=== PATIENT | female | born 1945 | race Caucasian/White ===

== ENCOUNTER → 2016-06-06 | Outpatient (CLI) | payer MEDICARE ==
[2015-09-23 17:37] VITALS: BP 133/77
[~2016-06-06] MED LIST: ALPR0.254 PO; ASPI-482 PO; ASPI81TA2 PO; ATOR10TA60 PO; ATOR20TA58 PO; BREO; BREO ELLIPTA; BUSP15TA PO; CHOL10003 PO; CYAN10005 PO; DULO20CA PO; DULO60CA6 PO; FLUO40CA2 PO; HYDR-2762 PO; LEVO500T38 PO; LISI-334 PO; LISI10TA2 PO; LOSA25TA4 PO; MELO-150 PO; METO-269 PO; METO25TA2 PO; OMEP20CA9 PO; OMEP20TA PO; PROAIR HFA8.5 GM INH; TRAZ50TA15 PO; TRIA1CAP3 PO; TRIA1TAB3 PO
--- NOTE | 2016-06-06 14:39 | RAD ---
Indication follow-up nodules. PA and lateral views of the chest were obtained. Comparison is made to an examination 09/22/2015. Note is made of a CT examination 05/27/2015 referencing stable parenchymal opacities and nodules. The heart and pulmonary vessels are unremarkable. The mediastinum has a stable appearance. A focal infiltrate is not seen. A dominant nodule is not apparent on plain films. Significant pleural fluid is not present. There is no pneumothorax. A significant change in the appearance of the chest, on plain films, is not seen. IMPRESSION: No acute finding. No significant change, on plain films, relative to the previous exam
== END | disposition home or self-care (01) ==
LOC: RAD 13:50
PROVIDERS: ATTEND Internal Medicine Critical Care Medicine
DX: R06.00 Dyspnea, unspecified (principal); R91.8 Other nonspecific abnormal finding of lung field
CPT/HCPCS: 71020

== ENCOUNTER → 2016-06-21 | Outpatient (CLI) | payer MEDICARE ==
[2015-09-23 17:37] VITALS: BP 133/77
--- NOTE | 2016-06-22 10:19 | CARD ---
APPROVED REPORT EXAM: Two-dimensional and M-mode echocardiogram with Doppler and color Doppler. Other Information Quality : AverageHR: 97bpm Rhythm : Atrial Fibrillation INDICATION Atrial Fibrillation 2D DIMENSIONS RVDd3.0 (2.9-3.5cm)Left Atrium(2D)4.0 (1.6-4.0cm) IVSd0.9 (0.7-1.1cm)Aortic Root(2D)2.6 (2.0-3.7cm) LVDd5.6 (3.9-5.9cm)LVOT Diameter2.1 (1.8-2.4cm) PWd0.9 (0.7-1.1cm)LVDs4.3 (2.5-4.0cm) FS (%) 23.7 %SV71.1 ml Aortic Valve AoV Peak Jake.137.0cm/sAoV VTI22.6cm AO Peak GR.7.5mmHgLVOT Peak Jake.104.6cm/s AO Mean GR.4mmHgAVA (VMAX)2.75cm2 Tricuspid Valve TR P. [id number]/sRAP [id number] TR Peak Gr.[id number] LEFT VENTRICLE The left ventricle is normal size. There is normal left ventricular wall thickness. Left ventricle sy stolic function is normal. The Ejection Fraction is 50-55%. Unable to assess due to Atrial Fibrillati on. There is no ventricular septal defect visualized. RIGHT VENTRICLE The right ventricle is normal size. The right ventricular systolic function is normal. ATRIA The left atrium size is normal. The right atrium size is normal. The interatrial septum is intact wit h no evidence for an atrial septal defect or patent foramen ovale as noted on 2-D or Doppler imaging. AORTIC VALVE The aortic valve is normal in structure and function. The aortic valve is trileaflet. Doppler and Col or Flow revealed no significant aortic regurgitation. There is no significant aortic valvular stenosi s. MITRAL VALVE Mitral annular calcification is mild. There is no evidence of mitral valve prolapse. There is no mitr al valve stenosis. Doppler and Color Flow revealed trace mitral regurgitation. TRICUSPID VALVE The tricuspid valve is normal in structure and function. Doppler and Color Flow revealed trace tricus pid regurgitation. The PA pressure was estimated at 24 mmHg. There is no tricuspid valve stenosis. PULMONIC VALVE The pulmonary valve is normal in structure and function. Doppler and Color Flow revealed no pulmonic valvular regurgitation. There is no pulmonic valvular stenosis. GREAT VESSELS The aortic root is normal in size. The ascending aorta is normal in size. Normal pulmonary venous annette w (Doppler). The IVC is normal in size and collapses >50% with inspiration. PERICARDIAL EFFUSION There is no pleural effusion. There is no evidence of significant pericardial effusion. Critical Notification Critical Value: No <Conclusion> The left ventricle is normal size. Left ventricle systolic function is normal. The Ejection Fraction is 50-55%. There is no significant aortic valvular stenosis. Doppler and Color Flow revealed no significant aortic regurgitation. Doppler and Color Flow revealed trace mitral regurgitation. Doppler and Color Flow revealed trace tricuspid regurgitation. The PA pressure was estimated at 24 mmHg.
== END | disposition home or self-care (01) ==
LOC: ECHO 09:39
PROVIDERS: ATTEND Internal Medicine Cardiovascular Disease
DX: I48.91 Unspecified atrial fibrillation (principal); I34.0 Nonrheumatic mitral (valve) insufficiency; I07.1 Rheumatic tricuspid insufficiency
CPT/HCPCS: 93306

== ENCOUNTER → 2016-06-22 | Outpatient (CLI) | payer MEDICARE ==
[2015-09-23 17:37] VITALS: BP 133/77
--- NOTE | 2016-06-22 08:46 | RAD ---
Examination: CT chest without contrast History: History of follow-up pulmonary nodules. Comparison: 05/27/2015 Technique: Axial CT images of the chest were performed without contrast. Coronal sagittal reformats performed. PQRS Compliance Statement: One or more of the following individualized dose reduction techniques were utilized for this examination: 1. Automated exposure control 2. Adjustment of the mA and/or kV according to patient size 3. Use of iterative reconstruction technique Findings: The central airways are patent. The heart size grossly appears unremarkable. Coronary artery calcifications identified No radiologically significant mediastinal lymphadenopathy is identified. There is a 1.2 cm nodule identified in the right apical lung region grossly appears similar to prior exam. There is faint parenchymal opacity identified in the left upper lobe is grossly similar to prior exam. There is a 7 mm nodule identified in the left lower lobe of the lungs grossly similar to prior exam. Cholecystectomy clips are identified. Small hiatal hernia is noted. Moderate degenerative changes identified in the thoracic spine. Impression: Unchanged bilateral lung pulmonary nodules with the largest measuring 1.2 cm in the right upper lobe of the lung.
== END | disposition home or self-care (01) ==
LOC: CT 07:53
PROVIDERS: ATTEND Internal Medicine
DX: R91.1 Solitary pulmonary nodule (principal); I25.10 Atherosclerotic heart disease of native coronary artery without angina pectoris; K44.9 Diaphragmatic hernia without obstruction or gangrene
CPT/HCPCS: 71250

== ENCOUNTER 2016-07-09 06:29 | Day surgery (SDC) | payer MEDICARE ==
[~2016-07-09 06:29] MED LIST changes: +BUPIVACAINE MPF 0.5% 30 ML VIAL. ONE
[2016-07-09] MEDS ORDERED: ONDANSETRON PF 4 MG/2 ML VIAL. IV PRN (07:00)
[2016-07-09] MEDS ORDERED: IV RINGERS,LACTATED 1000ML 1,000 ML IV SCH ×2 (07:00→07:45)
[2016-07-09] MEDS ORDERED: LIDOCAINE 1% 1 ML SYRINGE. ID PRN (07:00)
[2016-07-09] MEDS ORDERED: MORPHINE SULFATE 2 MG/ML DISP.SYRIN. IV PRN (07:00)
[2016-07-09] MEDS ORDERED: PROCHLORPERAZINE 10 MG/2 ML VIAL. IV PRN (07:00)
[2016-07-09] MEDS ORDERED: HYDROMORPHONE 2 MG/ML VIAL. IV PRN (07:00)
[2016-07-09] MEDS ORDERED: FENTANYL PF 100 MCG/2 ML VIAL. IV PRN ×2 (07:00)
--- NOTE | 2016-07-09 07:11 | EKG ---
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
[2016-07-09 07:50] LABS: CALCIUM 8.9 mg/dL (8.5-10.1); CREATININE 0.8 mg/dL (0.6-1.0); GFR 70.9; MAGNESIUM 1.7 mg/dL (1.8-2.4); POTASSIUM 3.6 mmol/L (3.5-5.1)
[2016-07-09] MEDS ORDERED: LIDOCAINE 2% 100 MG/5 ML DISP.SYRIN. ONE (07:50)
[2016-07-09] MEDS ORDERED: EPHEDRINE PF IN SALINE 50 MG/5 ML DISP.SYRIN. IV ONE (07:50)
[2016-07-09] MEDS ORDERED: PROPOFOL 0 ML IV ONE (07:50)
--- NOTE | 2016-07-09 08:31 | EKG ---
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
[2016-07-09 09:05] VITALS: BP 134/68
[2016-07-09] MEDS ORDERED: PROPOFOL 20 ML IV ONE (12:11)
--- NOTE | 2016-07-09 16:27 | PDOC4 ---
Operative Note Operative Note Elective outpatient electrical cardioversion. The patient is a pleasant 71-year-old female who was found to have atrial fibrillation approximately 5 weeks ago. She was placed on rate control medications and anticoagulation. Echocardiogram is showing normal LV function. She has been compliant with her medications and was scheduled for an outpatient cardioversion. Risks and benefits of the procedure were discussed with the patient and she agreed to proceed. The anesthesiology service provided sedation for the patient. Once appropriate level of sedation was obtained the patient was cardioverted with one discharge of 300 J synchronized energy. This converted her to a sinus rhythm. She awoke normally after the procedure with no immediate complications. Conclusions. Successful electrical cardioversion of atrial fibrillation to normal sinus rhythm. MYA CANTRELL MD Jul 09, 2016 16:27
== END 2016-07-09 09:43 | disposition home or self-care (01) ==
LOC: SURG 06:29
PROVIDERS: ATTEND Internal Medicine Cardiovascular Disease
DX: I48.91 Unspecified atrial fibrillation (principal); E78.00 Pure hypercholesterolemia, unspecified; I10 Essential (primary) hypertension; J45.909 Unspecified asthma, uncomplicated; K21.9 Gastro-esophageal reflux disease without esophagitis; E78.5 Hyperlipidemia, unspecified; I25.10 Atherosclerotic heart disease of native coronary artery without angina pectoris; E66.9 Obesity, unspecified; M19.90 Unspecified osteoarthritis, unspecified site; F41.9 Anxiety disorder, unspecified; F32.9 Major depressive disorder, single episode, unspecified; D64.9 Anemia, unspecified; Z90.710 Acquired absence of both cervix and uterus; Z90.49 Acquired absence of other specified parts of digestive tract; Z87.891 Personal history of nicotine dependence; Z72.89 Other problems related to lifestyle
CPT/HCPCS: 36415; 80048; 83735; 92960; 93005; J2704; J3490

== ENCOUNTER 2016-07-20 18:15 | Observation (INO) | payer MEDICARE ==
[~2016-07-20] VITALS: Ht 154.9 cm; Wt 107.6 kg
[~2016-07-20 18:15] MED LIST changes: -BUPIVACAINE MPF 0.5% 30 ML VIAL. ONE
[2016-07-20] MEDS ORDERED: DILTIAZEM IV PUSH 25 MG/5 ML VIAL. IVP ONE (18:45)
[2016-07-20 18:53] LABS: BASO # 0.1 x10^3/uL (0.0-0.2); BASO % 1 % (0-3); EOS % 1 % (0-3); HEMATOCRIT 35.8 % (36.0-47.0); HEMOGLOBIN 11.5 g/dL (12.0-15.5); LYMPH % 18 % (24-48); MEAN CORPUSCULAR HEMOGLOBIN 28 pg (25-35); MEAN CORPUSCULAR HGB CONC 32 g/dL (31-37); MEAN CORPUSCULAR VOLUME 86 fL (79-100); MONO % 5 % (0-9); NEUT % 76 % (31-73); PLATELET COUNT 306 x10^3/uL (140-400); RED BLOOD COUNT 4.18 x10^6/uL (3.50-5.40); RED CELL DISTRIBUTION WIDTH 15.5 % (11.5-14.5); WHITE BLOOD COUNT 11.4 x10^3/uL (4.0-11.0)
[2016-07-20] MEDS: DILTIAZEM 125 MG in IV DEXTROSE 5% 100 ML IV PRN (18:56)
--- NOTE | 2016-07-20 18:56 | PHYS DOC ---
Past Medical History Past Medical History: A-Fib, Arthritis, Asthma, CAD, Depression, High Cholesterol, Hypertension, Other Additional Past Medical Histor: Osteoporosis Past Surgical History: Appendectomy, Cholecystectomy, Hysterectomy, Tonsillectomy, Other Additional Past Surgical Histo: L Arm w/ hardware,CARDIOVERSION Alcohol Use: Heavy Additional Information: 1 GLASS OF WINE EVERY OTHER DAY Drug Use: None Adult General Chief Complaint Chief Complaint: CHEST PAIN HPI HPI Patient is a 71 year old female who presents with chest pressure. Patient reports since yesterday early afternoon she has been having pressure-like pain in her upper chest radiating up to her neck. No SOB at this time. Noted to be in Afib; of note, patient has h/o same and underwent cardioversion on 07/09/16. She says about a week after this she has been having episodes of Afib. Patient says she has been compliant with her meds, which include diltiazem and xarelto. No other acute complaints. Review of Systems Review of Systems Constitutional: Denies fever or chills Eyes: Denies change in visual acuity or eye pain HENT: Denies nasal congestion or sore throat Respiratory: Denies cough or shortness of breath Cardiovascular: Upper chest pressure radiating to neck GI: Denies abdominal pain, nausea, vomiting, bloody stools or diarrhea : Denies dysuria or hematuria Musculoskeletal: Denies back pain or joint pain Integument: Denies rash or skin lesions Neurologic: Denies headache, focal weakness or sensory changes Current Medications Current Medications Current Medications Medications (Trade) Dose Ordered Sig/Dev Start Time Stop Time Status Last Admin Dose Admin Diltiazem HCl 10 mg 10 mg 1X ONCE 07/20/16 18:45 07/20/16 18:46 DC 07/20/16 18:55 10 MG Diltiazem HCl/ Dextrose (Cardizem) 125 ml @ 0 mls/hr CONT PRN 07/20/16 18:45 07/20/16 18:56 5 MLS/HR Magnesium Oxide (Magnesium Oxide) 400 mg 1X ONCE 07/20/16 20:00 07/20/16 20:01 DC 07/20/16 20:13 400 MG Allergies Allergies Allergies Coded Allergies Type Severity Reaction Last Updated Verified iodine Allergy Severe Anaphylaxis 07/09/16 Yes iodine Allergy Severe anaphylaxis, throat swelling and difficulty breathing 07/09/16 No shellfish derived Allergy Severe Anaphylaxis 07/09/16 Yes Sulfa (Sulfonamide Antibiotics) Allergy Intermediate Swelling, pain in neck 07/09/16 Yes Physical Exam Physical Exam Constitutional: Well developed, well nourished, no acute distress, non-toxic appearance HENT: Normocephalic, atraumatic, bilateral external ears normal Eyes: EOMI, conjunctiva normal, no discharge Neck: Normal range of motion, no stridor Cardiovascular: Tachycardic, irregular rhythm, no murmur Lungs & Thorax: Bilateral breath sounds clear to auscultation Abdomen: Bowel sounds normal, soft, non-distended, no TTP Skin: Warm, dry, no erythema, no rash Extremities: No obvious deformity, no edema Neurologic: Alert and oriented X 3, no gross deficits noted Current Patient Data Vital Signs Vital Signs Date Time Temp Pulse Resp B/P Pulse Ox O2 Delivery O2 Flow Rate FiO2 07/20/16 20:25 102 18 141/85 96 Room Air 07/20/16 18:22 98.9 98.9 Lab Values Laboratory Tests Test 07/20/16 18:31 White Blood Count 11.4x10^3/uL (4.0-11.0) H Red Blood Count 4.18x10^6/uL (3.50-5.40) Hemoglobin 11.5g/dL (12.0-15.5) L Hematocrit 35.8% (36.0-47.0) L Mean Corpuscular Volume 86fL (79-100) Mean Corpuscular Hemoglobin 28pg (25-35) Mean Corpuscular Hemoglobin Concent 32g/dL (31-37) Red Cell Distribution Width 15.5% (11.5-14.5) H Platelet Count 306x10^3/uL (140-400) Neutrophils (%) (Auto) 76% (31-73) H Lymphocytes (%) (Auto) 18% (24-48) L Monocytes (%) (Auto) 5% (0-9) Eosinophils (%) (Auto) 1% (0-3) Basophils (%) (Auto) 1% (0-3) Neutrophils # (Auto) 8.7x10^3uL (1.8-7.7) H Lymphocytes # (Auto) 2.0x10^3/uL (1.0-4.8) Monocytes # (Auto) 0.6x10^3/uL (0.0-1.1) Eosinophils # (Auto) 0.1x10^3/uL (0.0-0.7) Basophils # (Auto) 0.1x10^3/uL (0.0-0.2) Sodium Level 142mmol/L (136-145) Potassium Level 3.6mmol/L (3.5-5.1) Chloride Level 103mmol/L (98-107) Carbon Dioxide Level 27mmol/L (21-32) Anion Gap 12 (6-14) Blood Urea Nitrogen 20mg/dL (7-20) Creatinine 0.8mg/dL (0.6-1.0) Estimated GFR (Cockcroft-Gault) 70.9 Glucose Level 98mg/dL (70-99) Calcium Level 9.7mg/dL (8.5-10.1) Magnesium Level 1.7mg/dL (1.8-2.4) L Troponin I Quantitative < 0.017ng/mL (0.000-0.055) Laboratory Tests 07/20/16 18:31 Laboratory Tests 07/20/16 18:31 EKG EKG EKG (my read): irregular rhythm (Afib), rate 141, normal axis, nonspecific ST changes Radiology/Procedures Radiology/Procedures CXR (my read): No significant change from prior Course & Med Decision Making Course & Med Decision Making Pertinent Labs and Imaging studies reviewed. (See chart for details) Patient is 71 year old female who presents with chest pressure. Appears related to Afib with RVR. EKG, CXR, labs ordered to evaluate. Cardizem bolus and gtt ordered. EKG and imaging results as above. Labs notable for minimal leukocytosis , minimal hypomagnesemia. Oral magnesium replacement ordered. HR improved after cardizem; discussed with patient, who says she is feeling much better. Discussed with Dr. Hsieh, will admit under observation status for further evaluation. Dragon Disclaimer Dragon Disclaimer This electronic medical record was generated, in whole or in part, using a voice recognition dictation system. Departure Departure Impression: Primary Impression: Atrial fibrillation with RVR Disposition: ADMITTED INPATIENT Admitting Physician: Nanette Hsieh Condition: STABLE Referrals: NANETTE HSIEH MD (PCP) DELGADO SALES MD Jul 20, 2016 18:56
[2016-07-20 19:13] LABS: CALCIUM 9.7 mg/dL (8.5-10.1); CREATININE 0.8 mg/dL (0.6-1.0); GFR 70.9; POTASSIUM 3.6 mmol/L (3.5-5.1)
[2016-07-20 19:14] LABS: MAGNESIUM 1.7 mg/dL (1.8-2.4)
[2016-07-20] MEDS ORDERED: MAGNESIUM OXIDE 400 MG TABLET PO ONE (20:00)
[2016-07-20] MEDS ORDERED: ACETAMINOPHEN 325 MG TABLET. PO PRN (21:00)
[2016-07-20] MEDS ORDERED: MORPHINE SULFATE 2 MG/ML DISP.SYRIN. IV PRN (21:00)
[2016-07-20] MEDS ORDERED: ONDANSETRON PF 4 MG/2 ML VIAL. IV PRN (21:00)
--- NOTE | 2016-07-20 21:55 | EKG ---
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
[2016-07-20 22:00] VITALS: BP 113/82
[2016-07-20] MEDS ORDERED: MECL25TA3 PO (22:09)
[2016-07-20] MEDS ORDERED: DILT180C64 PO (22:09)
[2016-07-20] MEDS ORDERED: BREO ELLIPTA 11 EACH IH (22:09)
[2016-07-20] MEDS ORDERED: RIVA20TA2 PO (22:09)
[2016-07-20] MEDS ORDERED: MECLIZINE HCL 12.5 MG TABLET. PO PRN (22:30)
[2016-07-20] MEDS ORDERED: ALBUTEROL SULFATE 2.5 MG/3 ML NEBU. NEB PRN (22:30)
[2016-07-20] MEDS ORDERED: HYDROCODONE/APAP 7.5/325MG TABLET. PO PRN (22:30)
[2016-07-20] MEDS ORDERED: NON FORMULARY ITEM (Albuterol Sulfate (Proair Hfa Inhaler) 2 PUFF) INH PRN (22:30)
[2016-07-20] MEDS: traZODone 50 MG TABLET. PO SCH (22:53)
[2016-07-20] MEDS: ATORVASTATIN CALCIUM 20 MG TABLET PO SCH (22:53)
[2016-07-20 23:00] VITALS: BP 129/80
[2016-07-20] MEDS ORDERED: traZODone 50 MG TABLET. PO SCH (23:00)
[2016-07-20] MEDS ORDERED: RIVAROXABAN 10 MG TABLET. PO SCH (23:00)
[2016-07-20 23:29] VITALS: BP 114/64
[2016-07-20] MEDS: ANTI-COAG MONITOR BY PHARMACY. MC PRN (23:56)
[2016-07-21] VITALS (11 sets, daily range): BP systolic 93–136; BP diastolic 52–67
[2016-07-21] MEDS: ALBUTEROL SULFATE 2.5 MG/3 ML NEBU. NEB SCH ×4 (07:17→20:00)
[2016-07-21] MEDS: BUDESONIDE 0.5 MG/2 ML NEBU. NEB SCH ×2 (07:17→20:00)
--- NOTE | 2016-07-21 07:43 | RAD ---
PORTABLE CHEST 1V Clinical Indication: chest pressure, r/o acute process Comparison: June 06, 2016. Technique: Portable upright AP view of the chest is obtained. Findings: No focal consolidation, pleural effusion or pneumothorax is seen. Cardiomediastinal silhouette is stable in size. Visualized osseous structures and overlying soft tissues demonstrate no acute interval change. IMPRESSION: No focal consolidation or acute radiographic change.
[2016-07-21] MEDS: ANTI-COAG MONITOR BY PHARMACY. MC PRN (08:32)
[2016-07-21] MEDS: DILTIAZEM 125 MG in IV DEXTROSE 5% 100 ML IV PRN (08:39)
[2016-07-21] MEDS: TRIAMTERENE/HCTZ 37.5/25MG TABLET. PO SCH (08:40)
[2016-07-21] MEDS: DULOXETINE HCL 30 MG CAPSULE.DR. PO SCH (08:40)
[2016-07-21] MEDS: CHOLECALCIFEROL (VITAMIN D3) 1,000 UNIT TABLET PO SCH (08:40)
[2016-07-21] MEDS: ASPIRIN ENTERIC COATED 81 MG TABLET.DR. PO SCH (08:41)
[2016-07-21] MEDS: LOSARTAN POTASSIUM 25 MG TABLET. PO SCH (08:41)
[2016-07-21] MEDS: PANTOPRAZOLE 40 MG TABLET.DR. PO SCH (08:41)
--- NOTE | 2016-07-21 08:41 | PDOC2 ---
JUNG DAVIS HYDRAULIC JACK OPERATOR 07/21/16 0841: CARDIAC CONSULT DATE OF CONSULT Date of Consult DATE: 07/21/16 TIME: 08:27 REASON FOR CONSULT Reason for Consult: FIB with RVR REFERRING PHYSICIAN Referring Physician: Dr. Stiles SOURCE Source: Chart review, Patient HISTORY OF PRESENT ILLNESS HISTORY OF PRESENT ILLNESS This is a 71 yo female who presented with complaints of chest pressure. Patient underwent successful cardioversion for AFIB 07/19/16. Reports she felt great for a just over a week. Started having intermittent chest pressure and palpitations on ; thought she was back in AFIB. Had routine appointment with PCP Saturday; confirmed she was back in AFIB. Reports having chest pressure and palpitations last night. States she "didn't feel right" so she came into the ED for further evaluation. Denies any dizziness, diaphoresis, SOA, nausea/vomiting , or LE edema. No recent illness or fevers. Forgot to take her medications yesterday morning. Otherwise, has been complaints with meds. Has follow-up scheduled with Dr. Saldivar 07/26/16. PAST MEDICAL HISTORY Past Medical History Cardiovascular: AFIB, CAD, HTN, Hyperlipidemia Pulmonary: Other (lung nodules followed by Dr. Youssef - "stable" ) CENTRAL NERVOUS SYSTEM: Other (none) GI: GERD, Other (hiatal hernia) Heme/Onc: No pertinent hx Hepatobiliary: Other ("enlarged liver" ) Psych: Anxiety, Depression Musculoskeletal: Other (dislocated right elbow; fracture right forearm with surgical repair) Rheumatologic: Rheumatoid arthritis ENT: No pertinent hx Renal/: No pertinent hx Endocrine: Osteoporosis Dermatology: No pertinent hx PAST SURGICAL HISTORY Past Surgical History Appendectomy, Cholecystectomy, Tonsillectomy, Hysterectomy, Other (surgical repair right forearm fracture) FAMILY HISTORY Family History Coronary Artery Disease (father age 72 of [place] after GI surgery), Hypertension (mother) SOCIAL HISTORY Social History Smoke: Quit (in her 20s) ALCOHOL: other (2 glasses of wine/day) Drugs: None Lives: Alone CURRENT MEDICATIONS CURRENT MEDICATIONS Current Medications Medications (Trade) Dose Ordered Sig/Dev Route PRN Reason Start Time Stop Time Status Last Admin Dose Admin Diltiazem HCl 10 mg 10 mg 1X ONCE IVP 07/20/16 18:45 07/20/16 18:46 DC 07/20/16 18:55 Diltiazem HCl/ Dextrose (Cardizem) 125 ml @ 0 mls/hr CONT PRN IV SEE I/O RECORD 07/20/16 18:45 07/20/16 18:56 Magnesium Oxide (Magnesium Oxide) 400 mg 1X ONCE PO 07/20/16 20:00 07/20/16 20:01 DC 07/20/16 20:13 Atorvastatin Calcium (Lipitor) 20 mg HS PO 07/20/16 23:00 07/20/16 22:53 Trazodone HCl (Desyrel) 50 mg HS PO 07/20/16 23:00 07/20/16 22:53 Rivaroxaban (Xarelto) 20 mg DAILY PO 07/20/16 23:00 07/20/16 22:53 Albuterol Sulfate (Ventolin Neb Soln) 2.5 mg RTQID NEB 07/21/16 08:00 07/21/16 07:17 Budesonide (Pulmicort) 0.5 mg RTBID NEB 07/21/16 08:00 07/21/16 07:17 Info (Anti-Coagulation Monitoring By Pharmacy) 1 each PRN DAILY PRN MC SEE COMMENTS 07/20/16 22:45 07/20/16 23:56 ALLERGIES ALLERGIES: Coded Allergies: iodine (Verified Allergy, Severe, Anaphylaxis, 07/09/16) iodine (Unverified Allergy, Severe, anaphylaxis, throat swelling and difficulty breathing, 07/09/16) shellfish derived (Verified Allergy, Severe, Anaphylaxis, 07/09/16) Sulfa (Sulfonamide Antibiotics) (Verified Allergy, Intermediate, Swelling , pain in neck, 07/09/16) ROS Review of System 14 point ROS conducted with pertinent positives noted above in HPI. PHYSICAL EXAM PHYSICAL EXAM General: Alert, Oriented X3, Cooperative HEENT: Atraumatic, PERRLA, Mucous membr. moist/pink Lungs: Clear to auscultation, Normal air movement Heart: IRRR, Normal S1, Normal S2, No murmurs, Other (tele: AFIB rate 80-95) Abdomen: Normal bowel sounds, Soft, No tenderness, Other (obese abdomen) Extremities: No edema, Normal pulses Skin: No rashes Neuro: Normal gait Psych/Mental Status: Mental status NL, Mood NL MUSCULOSKELETAL: Osteoarthritic changes both hands VITALS VITALS Vital Signs Date Time Temp Pulse Resp B/P Pulse Ox O2 Delivery O2 Flow Rate FiO2 4/15/17 07:11 100 Room Air 07/21/16 04:00 76 103/63 07/21/16 03:35 97.8 16 97.8 LABS Lab: Laboratory Tests Test 07/20/16 18:31 White Blood Count 11.4x10^3/uL (4.0-11.0) Red Blood Count 4.18x10^6/uL (3.50-5.40) Hemoglobin 11.5g/dL (12.0-15.5) Hematocrit 35.8% (36.0-47.0) Mean Corpuscular Volume 86fL (79-100) Mean Corpuscular Hemoglobin 28pg (25-35) Mean Corpuscular Hemoglobin Concent 32g/dL (31-37) Red Cell Distribution Width 15.5% (11.5-14.5) Platelet Count 306x10^3/uL (140-400) Neutrophils (%) (Auto) 76% (31-73) Lymphocytes (%) (Auto) 18% (24-48) Monocytes (%) (Auto) 5% (0-9) Eosinophils (%) (Auto) 1% (0-3) Basophils (%) (Auto) 1% (0-3) Neutrophils # (Auto) 8.7x10^3uL (1.8-7.7) Lymphocytes # (Auto) 2.0x10^3/uL (1.0-4.8) Monocytes # (Auto) 0.6x10^3/uL (0.0-1.1) Eosinophils # (Auto) 0.1x10^3/uL (0.0-0.7) Basophils # (Auto) 0.1x10^3/uL (0.0-0.2) Sodium Level 142mmol/L (136-145) Potassium Level 3.6mmol/L (3.5-5.1) Chloride Level 103mmol/L (98-107) Carbon Dioxide Level 27mmol/L (21-32) Anion Gap 12 (6-14) Blood Urea Nitrogen 20mg/dL (7-20) Creatinine 0.8mg/dL (0.6-1.0) Estimated GFR (Cockcroft-Gault) 70.9 Glucose Level 98mg/dL (70-99) Calcium Level 9.7mg/dL (8.5-10.1) Magnesium Level 1.7mg/dL (1.8-2.4) Troponin I Quantitative < 0.017ng/mL (0.000-0.055) ECHOCARDIOGRAM ECHOCARDIOGRAM <Conclusion> The left ventricle is normal size. Left ventricle systolic function is normal. The Ejection Fraction is 50-55%. There is no significant aortic valvular stenosis. Doppler and Color Flow revealed no significant aortic regurgitation. Doppler and Color Flow revealed trace mitral regurgitation. Doppler and Color Flow revealed trace tricuspid regurgitation. The PA pressure was estimated at 24 mmHg. DATE: 06/22/16 1018 STRESS TEST STRESS TEST Conclusion 1. Normal myocardial perfusion at stress. 2. No EKG changes. Normal EF at > 70% 3. Low risk study DATE: 09/23/15 1329 ASSESSMENT/PLAN ASSESSMENT/PLAN 1. chest pressure, substernal likely secondary to RVR troponin negative-AMI ruled out MPI 09/21 without evidence of ischemia recent echo with normal systolic function; EF 50-55% 2. paroxysmal atrial fib with RVR missed dose of Cardizem yesterday rate improved with Cardizem gtt- at 10/hr; remains in AFIB will resume oral Cardizem and increase to 240mg. Titrate gtt off 1 hr after oral dose continue Xarelto for stroke prevention TSH WNL 09/21 Consider rhythm maintenance if SR is achieved 3. HTN, benign essential hypertensive on presentation; now improved 4. HLD LDL= 81 09/21 continue statin therapy 5. anxiety/depression per PCP 6. lung nodules followed by Dr. Youssef of pulmonary 7. obesity with BMI > 40 8. Hypomagnesemia replace. monitor lytes Problems: KAREN CARTER MD 07/21/16 1330: CARDIAC CONSULT ALLERGIES ALLERGIES: Coded Allergies: iodine (Verified Allergy, Severe, Anaphylaxis, 07/09/16) iodine (Unverified Allergy, Severe, anaphylaxis, throat swelling and difficulty breathing, 07/09/16) shellfish derived (Verified Allergy, Severe, Anaphylaxis, 07/09/16) Sulfa (Sulfonamide Antibiotics) (Verified Allergy, Intermediate, Swelling , pain in neck, 07/09/16) ASSESSMENT/PLAN ASSESSMENT/PLAN Patient seen and examined. Agree with BOILING TUB OPERATOR's assessment and plan. Atrial fibrillation rate better controlled. Change Cardizem to by mouth. Continue Xarelto. We will consider initiation of antiarrhythmic therapy as an outpatient. Chest pain most probably secondary to rapid ventricular response. Doubt ACS. Recent stress test did not show any ischemia. LV systolic function normal. Continue current medical regimen. Follow-up with our office as previously scheduled. Problems: JUNG DAVIS APRN Jul 21, 2016 08:41 KAREN CARTER MD Jul 21, 2016 13:30
[2016-07-21] MEDS ORDERED: NON FORMULARY ITEM (Fluticasone/Vilanterol (Breo Ellipta 100-25 Mcg Inh) 1 PUFF) IH SCH (09:00)
[2016-07-21] MEDS ORDERED: NON FORMULARY ITEM (Rivaroxaban (Xarelto) 20 MG) PO SCH (09:00)
--- NOTE | 2016-07-21 11:07 | ACF ---
Admit Criteria Forms Admit Criteria Forms Admit Criteria Forms ATRIAL FIBRILLATION Clinical Indications for Admission to Inpatient Care (Place 'X' for any and all applicable criteria): Admission indicated for ANY ONE of the following(1)(2)(3)(4)(5) : [ ]I. Myocardial ischemia [ ]II. Dyspnea or hypoxemia [ ]III. Hemodynamic instability [ ]IV. Heart failure (e.g., pulmonary edema) (7) [ ]V. New-onset (less than 48 hours) atrial fibrillation with high risk for causing complications secondary to comorbidities (eg, symptomatic heart failure ) [ ]. Altered mental status [ ]VII. Syncope [ ]VIII. Patient has implantable cardioverter defibrillator that has fired more than once within past 24hr or needs immediate adjustment of settings that cannot be done other than in inpatient setting. (8) [ ]IX. Suspected accessory pathway (e.g., Hgrnr-Qssgbxsnl-Atggm syndrome) on ECG [ ]X. Recent systemic thromboembolism (eg, stroke) [ ]XI. Medication toxicity (e.g., digitalis) causing arrhythmia(9) [ ]XII. Underlying medical condition that necessitates inpatient care (e.g., thyrotoxicosis, pneumonia) (10) [ ]XIII. Continuous ECG monitoring is required for condition causing arrhythmia (e.g., severe hyperkalemia, hypokalemia, acid-base disturbance).(11)(12)(13) [ ]XIV. Initiation of antiarrhythmic drug therapy is needed in patient at high risk of adverse effects as indicated by ANY ONE of the following: [ ]a) Significant structural heart disease (e.g., reduced ejection fraction, congenital heart disease, valvular heart disease) [ ]b) Prolonged QT interval [ ]c) Underlying sinus node or atrioventricular conduction disturbances [ ]d) Need for treatment with antiarrhythmic drugs that have significant proarrhythmic potential (e.g., dofetilide, sotalol, procainamide) [ ]e) Patient whose sinus rhythm has never been observed on ECG [ ]XV. Intolerable symptoms despite optimal outpatient treatment [ ]XVI. Elective or urgent cardioversion that cannot be performed on outpatient basis or during observation care. [A] (Use also Atrial Fibrillation: Observation Care ) as appropriate.(14) [ ]XVII.Contraindications and/or Inappropriate clinical situations for Observational Care in patients with Atrial Fibrillation, when ANY ONE of the following is required: [ ]a) Patient with High risk of cardiac embolism (e.g, patients with previous cardiac embolism, LVEF < 40%, age >75 and patients with prosthetic valve) 18 [ ]b) Patient with Moderate risk including DM patient, CAD and patient aged 65-75 18 [ ]c) Patient with any change in cardiac biomarker especially troponin should be managed as high risk in an inpatient setting 19 [ ]d) Physician judgement irrespective of ECG and other diagnostic findings 20 [ ]XVIII.General contraindications and/or Inappropriate clinical situations for Observational Care in patients with Atrial Fibrillation, when ANY ONE of the following is required: [ ]a) Prediction of prolongation of LOS based on ANY ONE of the following may be considered as a contraindication for observational care 2, 3, 4, 5, 6, 7, 8, 9, 10, 11 [ ]i) Age > 65 yrs. [ ]ii) Patient arriving by ambulance [ ]iii) Patient with high acuity [ ]iv) Patient requiring vital sign monitoring [ ]v) Patient on IV medication [ ]b) Systolic blood pressures 180mmHg 3,12 [ ]c) Patient with altered mental status including delirium and other alteration of consciousness3 [ ]d) Patient whose discharge disposition will be to a nursing home home or rehabilitation home should not be managed in Emergency Department Observation Unit. CMS rule requires 3 days hospital stay before such placement.3,13 [ ]e) Patient with failure to thrive due to broad array of etiologies 3,16,17 [ ]f) Inability to ambulate 3,14 Extended stay beyond goal length of stay may be needed for (1)(25)(26): [ ]a) Unstable comorbidities [ ]b) Persistently uncontrolled atrial fibrillation or other arrhythmias [ ]c) Acute thromboembolic event (e.g., stroke, limb ischemia) [ ]d) Need for inpatient attainment of full anticoagulation The original [employer] content created by [employer] has been revised. The portions of the content which have been revised are identified through the use of italic text or in bold, and [employer] has neither reviewed nor approved the modified material. All other unmodified content is copyright [employer]. Please see references footnoted in the original [employer] edition 2016 SHAKIR RAINEY Jul 21, 2016 11:07
[2016-07-21] MEDS ORDERED: MAGNESIUM SULFATE 2GM 50 ML IV ONE (11:30)
--- NOTE | 2016-07-21 11:38 | PDOC ---
Provider Note Provider Note [id number] BENITA FLORES MD Jul 21, 2016 11:38
[2016-07-21] MEDS: DILTIAZEM HCL 240 MG CAP.ER.24H PO SCH (11:42)
--- NOTE | 2016-07-21 12:23 | SSS ---
ADMIT DATE: 07/21/2016 HOSPITAL SUMMARY: A 71-year-old white female who recently underwent cardioversion for atrial fibrillation, but the rhythm has recurred per Dr. Guadalupe's visit yesterday. She came in with some chest pressure and concerned about that, but laboratory studies, EKG, enzymes and chest x-ray were clear. She is comfortable with her home and will be discharged later today if comfortable with her foreman or supervisor and operator who sees her today. All home medicines will remain the same, but the addition of a new antiarrhythmic will be considered per the foreman or supervisor and operator. FINAL DIAGNOSIS: Recurrent atrial fibrillation. OPERATIONS, PROCEDURES, COMPLICATIONS: None. CONSULTATION: Dr. Schumacher's group. DISPOSITION: Home medications the same with any additions per Dr. Schumacher. Followup as scheduled with Dr. Guadalupe and Dr. Schumacher. Prognosis is good. BENITA FLORES MD DR: AMANDA/deedee JOB#: [id number] / [id number]
[2016-07-21] MEDS: RIVAROXABAN 10 MG TABLET. PO SCH (17:33)
[2016-07-21] MEDS: ATORVASTATIN CALCIUM 20 MG TABLET PO SCH (20:33)
[2016-07-21] MEDS: traZODone 50 MG TABLET. PO SCH (20:33)
[2016-07-22 03:00] VITALS: BP 117/70
[2016-07-22 07:00] VITALS: BP 135/72
[2016-07-22] MEDS: ANTI-COAG MONITOR BY PHARMACY. MC PRN (07:49)
[2016-07-22] MEDS: BUDESONIDE 0.5 MG/2 ML NEBU. NEB SCH (08:13)
[2016-07-22] MEDS: ALBUTEROL SULFATE 2.5 MG/3 ML NEBU. NEB SCH (08:13)
[2016-07-22] MEDS: CHOLECALCIFEROL (VITAMIN D3) 1,000 UNIT TABLET PO SCH (08:52)
[2016-07-22] MEDS: DULOXETINE HCL 30 MG CAPSULE.DR. PO SCH (08:52)
[2016-07-22] MEDS: ASPIRIN ENTERIC COATED 81 MG TABLET.DR. PO SCH (08:53)
[2016-07-22] MEDS: TRIAMTERENE/HCTZ 37.5/25MG TABLET. PO SCH (08:53)
[2016-07-22] MEDS: DILTIAZEM HCL 240 MG CAP.ER.24H PO SCH (08:53)
[2016-07-22] MEDS: LOSARTAN POTASSIUM 25 MG TABLET. PO SCH (08:53)
[2016-07-22] MEDS: PANTOPRAZOLE 40 MG TABLET.DR. PO SCH (08:54)
--- NOTE | 2016-07-22 09:06 | PDOC ---
Provider Note Provider Note no new sxs or more pain, still af rate 90-100 rest, higher w/ walking- on more dilt here, next step ? digoxin, more dilt, or try antiarrthyymic to provide rhythm control, based on EF- cardio to see today BENITA FLORES MD Jul 22, 2016 09:06
--- NOTE | 2016-07-22 09:07 | DISCH ---
DISCHARGE INSTRUCTIONS Condition on Discharge Condition on Discharge: Stable Activity After Discharge Activity Instructions for Disc: No restrictions Diet after Discharge Diet after Discharge: Low Sodium 4 gm Follow-Up Follow up with: BENITA Baer MD Jul 22, 2016 09:07
[2016-07-22] MEDS ORDERED: DILTIAZEM HCL 120 MG CAP.ER.24H PO ONE (09:45)
--- NOTE | 2016-07-22 09:56 | PDOC ---
PROGRESS NOTES Subjective Subjective Feeling better. Denied any chest pain or palpitations Objective Objective Vital Signs Date Time Temp Pulse Resp B/P Pulse Ox O2 Delivery O2 Flow Rate FiO2 07/22/16 08:53 81 135/72 07/22/16 08:16 94 Room Air 07/22/16 07:00 97.7 20 97.7 Intake and Output 07/22/16 07:00 Intake Total 650 ml Output Total 2000 ml Balance -1350 ml Intake Oral 650 ml Output Urine Total 2000 ml Physical Exam Abdomen: Soft, No tenderness Heart: Other (HR irregular) Extremities: No edema General: Alert, Oriented X3 HEENT: Atraumatic, PERRLA Lungs: Clear to auscultation Neck: Supple Psych/Mental Status: Mood NL Assessment Assessment 1. chest pressure, substernal likely secondary to RVR troponin negative-AMI ruled out MPI 09/21 without evidence of ischemia recent echo with normal systolic function; EF 50-55% 2. Atrial fib with RVR rate improved but still elevated on exertion. Increase cardizem to 360 mg CD QD and add Digoxin for better rate control continue Xarelto for stroke prevention Consider rhythm maintenance if SR is achieved 3. HTN, benign essential hypertensive on presentation; now improved 4. HLD LDL= 81 09/21 continue statin therapy 5. anxiety/depression per PCP 6. lung nodules followed by Dr. Youssef of pulmonary 7. obesity with BMI > 40 Plan Plan of Care Problems Medical Problems: (1) Atrial fibrillation with RVR Status: Acute Comment Review of Relevant I have reviewed the following items joann (where applicable) has been applied. Medications Current Medications Diltiazem HCl (Cardizem 24hr Cd) 120 mg ONCE ONCE PO ; Start 07/22/16 at 09:45 ; Stop 07/22/16 at 09:46; Status DC Diltiazem HCl (Cardizem 24hr Cd) 240 mg DAILY PO Last administered on 08:53; Start 07/21/16 at 11:30 Magnesium Sulfate/ Dextrose (Magnesium Sulfate PREMIX 2GM) 50 ml @ 25 mls/hr 1X ONCE IV Last administered on 07/21/16 11:42; Start 07/21/16 at 11:30; Stop 07/21/16 at 13:29; Status DC Rivaroxaban 20 mg 20 mg DAILYWSUP PO Last administered on 4/15/17at 17:33; Start 07/21/16 at 17:00 Vitals/I & O Vital Sign - Last 24 Hours 07/21/16 07/21/16 07/21/16 07/21/16 11:00 11:42 15:00 19:00 Temp 97.9 98.1 98.3 97.9 98.1 98.3 Pulse 81 87 80 92 Resp 18 18 18 B/P 99/61 114/68 109/61 100/67 Pulse Ox 98 96 94 O2 Delivery Room Air Room Air Room Air 07/21/16 07/21/16 07/22/16 07/22/16 19:53 23:04 03:00 07:00 Temp 98.4 98.4 97.7 98.4 98.4 97.7 Pulse 70 95 81 Resp 18 20 20 B/P 116/55 117/70 135/72 Pulse Ox 94 91 95 O2 Delivery Room Air Room Air Room Air Room Air 07/22/16 07/22/16 07/22/16 07/22/16 08:00 08:16 08:53 08:53 Pulse 81 81 B/P 135/72 135/72 Pulse Ox 94 O2 Delivery Room Air Room Air Intake and Output 07/21/16 07/21/16 07/22/16 15:00 23:00 07:00 Intake Total 650 ml 0 ml Output Total 300 ml 700 ml 1000 ml Balance -300 ml -50 ml -1000 ml KAREN CARTER MD Jul 22, 2016 09:56
[2016-07-22 11:00] VITALS: BP 133/67
[2016-07-22 15:00] VITALS: BP 134/72
[2016-07-22] MEDS ORDERED: DIGOXIN IV 500 MCG/2 ML AMPUL. IV ONE (15:00)
[2016-07-22] MEDS ORDERED: DIGOXIN 125 MCG TABLET. PO ONE (15:00)
[2016-07-22] MEDS: RIVAROXABAN 10 MG TABLET. PO SCH (17:08)
[2016-07-22 19:35] VITALS: BP 139/69
[2016-07-22] MEDS: ATORVASTATIN CALCIUM 20 MG TABLET PO SCH (21:36)
[2016-07-22] MEDS: traZODone 50 MG TABLET. PO SCH (21:36)
[2016-07-22] MEDS: ALPRAZOLAM 0.25 MG TABLET. PO PRN (21:38)
[2016-07-22 22:50] VITALS: BP 131/71
[2016-07-23 03:25] VITALS: BP 111/62
[2016-07-23 07:00] VITALS: BP 140/71
[2016-07-23] MEDS ORDERED: DILTIAZEM HCL 180 MG CAP.ER.24H PO SCH (09:00)
[2016-07-23] MEDS ORDERED: DIGOXIN 125 MCG TABLET. PO SCH (09:00)
[2016-07-23] MEDS: ALPRAZOLAM 0.25 MG TABLET. PO PRN (09:38)
[2016-07-23] MEDS: ASPIRIN ENTERIC COATED 81 MG TABLET.DR. PO SCH (09:38)
[2016-07-23] MEDS: CHOLECALCIFEROL (VITAMIN D3) 1,000 UNIT TABLET PO SCH (09:38)
[2016-07-23] MEDS: PANTOPRAZOLE 40 MG TABLET.DR. PO SCH (09:58)
[2016-07-23] MEDS: DULOXETINE HCL 30 MG CAPSULE.DR. PO SCH (09:58)
[2016-07-23] MEDS: TRIAMTERENE/HCTZ 37.5/25MG TABLET. PO SCH (09:59)
[2016-07-23 10:01] VITALS: BP 140/71
[2016-07-23] MEDS: LOSARTAN POTASSIUM 25 MG TABLET. PO SCH (10:01)
[2016-07-23] MEDS ORDERED: DILT180C29 PO (10:23)
[2016-07-23] MEDS ORDERED: DIGO125T PO (10:24)
--- NOTE | 2016-07-23 10:37 | PDOC ---
SUBJECTIVE Subjective Was her discharge was held yesterday due to shortness of breath, she feels much better today she had no further chest pain her A. fib is uncontrolled rate of 70 -80 OBJECTIVE Vital Signs Vital Signs Date Time Temp Pulse Resp B/P Pulse Ox O2 Delivery O2 Flow Rate FiO2 07/23/16 10:01 78 140/71 07/23/16 10:01 88 140/71 07/23/16 10:00 88 140/71 07/23/16 07:00 97.8 115 18 140/71 97 Room Air 97.8 07/23/16 03:25 97.5 80 18 111/62 96 Room Air 97.5 07/22/16 22:50 98.1 71 18 131/71 93 Room Air 98.1 07/22/16 19:35 98.2 85 18 139/69 95 Room Air 98.2 07/22/16 19:26 Room Air 07/22/16 15:56 82 134/72 07/22/16 15:55 82 134/72 07/22/16 15:00 98.1 82 20 134/72 97 Room Air 98.1 07/22/16 11:00 97.7 79 20 133/67 96 Room Air 97.7 I & O Intake and Output 07/23/16 07:00 Intake Total 1390 ml Output Total 950 ml Balance 440 ml Intake Oral 1390 ml Output Urine Total 950 ml # Voids 2 PHYSICAL EXAM Physical Exam Her lungs are fairly clear Heart is regular rate is normal Abdomen is soft Extremities no edema ASSESSMENT/PLAN Assessment/Plan 1. chest pressure, resolved likely secondary to RVR troponin negative-AMI ruled out MPI 09/21 without evidence of ischemia recent echo with normal systolic function; EF 50-55% 2. Atrial fib with RVR continue with higher dose Cardizem and Dig for rate control which was started on this admission on Xarelto for stroke prevention 3. HTN, benign essential controlled with meds 4. HLD LDL= 81 09/21 continue statin therapy 5. anxiety/depression Continue with Cymbalta 6. lung nodules followed by Dr. Youssef of pulmonary this has been stable on her last CT last months comparing to 6 months before 7. obesity with BMI > 40 Okay to proceed was discharged today patient does have appointment with cardiology in 2 days and was asked to keep that appointment she will be seen in her office also in 1 week Problems: NANETTE HSIEH MD Jul 23, 2016 10:37
--- NOTE | 2016-07-23 11:04 | PDOC ---
CARDIO Progress Notes Date and Time Date of Service 07/23/16 Time of Evaluation 1100 Subjective Subjective: No Chest Pain, No shortness of breath, No Palpitations, No Dizziness, Other (dressed, ready to go home) Vitals Vitals Vital Signs Date Time Temp Pulse Resp B/P Pulse Ox O2 Delivery O2 Flow Rate FiO2 07/23/16 10:01 78 140/71 07/23/16 07:00 97.8 18 97 Room Air 97.8 Weight Weight [ ] Input and Output Intake and Output Intake and Output 07/23/16 07:00 Intake Total 1390 ml Output Total 950 ml Balance 440 ml Intake Oral 1390 ml Output Urine Total 950 ml # Voids 2 Physical Exam HEENT: Neck Supple W Full Motion Chest: Symmetric LUNGS: Clear to Auscultation Heart: S1S2, irregularly irregular (tele: AFIB rate 70-80) Abdomen: Soft N/T Extremities: 2+ Dorsalis Pedis, No Edema, No Calf Tenderness Neurology: alert, oriented, follow commands Assessment Assessment 1. chest pressure, resolved likely secondary to RVR troponin negative-AMI ruled out MPI 09/21 without evidence of ischemia recent echo with normal systolic function; EF 50-55% 2. Atrial fib with RVR rate better controlled. Episode of RVR this morning with ambulation continue with Cardizem and Dig for rate control on Xarelto for stroke prevention patient to f/u in our office with Dr. Saldivar next week as previously scheduled. 3. HTN, benign essential controlled with meds 4. HLD LDL= 81 09/21 continue statin therapy 5. anxiety/depression per PCP 6. lung nodules followed by Dr. Youssef of pulmonary 7. obesity with BMI > 40 JUNG DAVIS APRN Jul 23, 2016 11:04
[2016-07-23] MEDS: ANTI-COAG MONITOR BY PHARMACY. MC PRN (14:22)
--- NOTE | 2016-07-23 19:21 | PDOC3 ---
Discharge Summary* Date of Admission: Jul 20, 2016 Date of Discharge: Jul 23, 2016 Admitting Diagnosis Problems Medical Problems: (1) Atrial fibrillation with RVR Status: Acute Final Diagnosis 1. chest pressure, resolved likely secondary to RVR troponin negative-AMI ruled out MPI 09/21 without evidence of ischemia recent echo with normal systolic function; EF 50-55% 2. Atrial fib with RVR continue with higher dose Cardizem and Dig for rate control which was started on this admission on Xarelto for stroke prevention 3. HTN, benign essential controlled with meds 4. HLD LDL= 81 09/21 continue statin therapy 5. anxiety/depression Continue with Cymbalta 6. lung nodules followed by Dr. Youssef of pulmonary this has been stable on her last CT last months comparing to 6 months before 7. obesity with BMI > 40 Problems Medical Problems: (1) Atrial fibrillation with RVR Status: Acute CONSULTS cardiology Procedures Chest x-ray, serial cardiac enzymes and EKG without change, troponin is normal Brief Hospital Course Ms. Rosales is a 71 old [sex] who presented with [ ] Disposition/Orders: D/C to Home CONDITION AT DISCHARGE: Improved Diet: Cardiac, Consistent Carbohydrate Scheduled Aspirin (Aspir 81) 81 MG PO DAILY (Reported) Atorvastatin Calcium (Atorvastatin Calcium) 20 MG PO HS (Reported) Cholecalciferol (Vitamin D3) (Vitamin D3) 2,000 UNIT PO DAILY (Reported) Digoxin (Digoxin) 125 MCG PO DAILY (Reported) Diltiazem Hcl (Diltiazem 24HR Cd) 360 MG PO DAILY (Reported) Duloxetine Hcl (Cymbalta) 1 CAP PO DAILY (Reported) Fluticasone/Vilanterol (Breo Ellipta 100-25 Mcg Inh) 1 PUFF IH DAILY (Reported) Losartan Potassium (Losartan Potassium) 25 MG PO DAILY (Reported) Omeprazole (Omeprazole) 20 MG PO DAILY (Reported) Rivaroxaban (Xarelto) 20 MG PO DAILY (Reported) Trazodone Hcl (Trazodone Hcl) 50 MG PO HS (Reported) Triamterene/Hydrochlorothiazid (Triamterene-Hctz 37.5-25 Mg Tb) 1 TAB PO DAILY ( Reported) Scheduled PRN Albuterol Sulfate (Proair Hfa Inhaler) 2 PUFF INH PRN Q4HRS PRN PRN SEE COMMENTS (Reported) Alprazolam (Alprazolam) 0.25 MG PO PRN Q6HRS PRN PRN ANXIETY / AGITATION ( Reported) Hydrocodone Bit/Acetaminophen (Hydrocodone-Apap 7.5-325 ) 1 TAB PO PRN Q6HRS PRN PRN PAIN (Reported) Meclizine Hcl (Meclizine Hcl) 1 TAB PO TID PRN PRN DIZZINESS (Reported) Discontinued Medications Diltiazem Hcl (Cartia Xt) 180 MG PO DAILY (Reported) FOLLOW UP APPOINTMENT: Dr Phillips 3 day 1 week Time Spent Total time spent with patient [] minutes for coordination of care, counseling, and education. NANETTE HSIEH MD Jul 23, 2016 19:21
== END 2016-07-23 11:40 | disposition home or self-care (01) ==
LOC: ER 18:15 → 2 NORTH 20:51
PROVIDERS: ADMIT Internal Medicine; ATTEND Internal Medicine
DX: I48.0 Paroxysmal atrial fibrillation (principal); I10 Essential (primary) hypertension; E78.5 Hyperlipidemia, unspecified; E66.9 Obesity, unspecified; R91.1 Solitary pulmonary nodule; J45.909 Unspecified asthma, uncomplicated; I25.10 Atherosclerotic heart disease of native coronary artery without angina pectoris; E78.00 Pure hypercholesterolemia, unspecified; M81.0 Age-related osteoporosis without current pathological fracture; E83.42 Hypomagnesemia; F41.9 Anxiety disorder, unspecified; F32.9 Major depressive disorder, single episode, unspecified; K21.9 Gastro-esophageal reflux disease without esophagitis; M06.9 Rheumatoid arthritis, unspecified; Z68.41 Body mass index [BMI] 40.0-44.9, adult; Z90.49 Acquired absence of other specified parts of digestive tract; Z82.49 Family history of ischemic heart disease and other diseases of the circulatory system
CPT/HCPCS: 36415; 71010; 80048; 83735; 84484; 85027; 93005; 94250; 94640; 94760; 96365; 96366; 96367; 96368; 96375; 99285; G0378; J1160; J3490; J7060; G0379

== ENCOUNTER 2016-10-03 08:05 | Day surgery (SDC) | payer MEDICARE ==
[~2016-10-03 08:05] MED LIST changes: +ASPI-630 PO; -ASPI81TA2 PO; +BREO ELLIPTA 11 EACH IH; +DIGO125T PO; +DILT180C29 PO; +DILT180C64 PO; +HYDROmorphone 2 MG/ML VIAL IV PRN; +IV RINGERS,LACTATED 1000ML 1,000 ML IV SCH; -LEVO500T38 PO; +LEVO500T59 PO; +LIDOCAINE 1% 1 ML SYRINGE. ID PRN; +MECL25TA3 PO; -MELO-150 PO; +MELO15TA23 PO; +MORPHINE SULFATE 2 MG/ML DISP.SYRIN. IV PRN; -OMEP20TA PO; +OMEP20TA8 PO; +ONDANSETRON PF 4 MG/2 ML VIAL. IV PRN; +PROCHLORPERAZINE 10 MG/2 ML VIAL. IV PRN; +RIVA20TA2 PO; +fentaNYL PF VIAL 100 MCG/2 ML VIAL IV PRN
--- NOTE | 2016-10-03 08:46 | EKG ---
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
[2016-10-03] MEDS ORDERED: 0.9 % SODIUM CHLORIDE 10 ML DISP.SYRIN. IV PRN (09:15)
[2016-10-03 09:23] LABS: HEMATOCRIT 30.6 % (36.0-47.0); HEMOGLOBIN 10.2 g/dL (12.0-15.5); RED BLOOD COUNT 3.71 x10^6/uL (3.50-5.40); RED CELL DISTRIBUTION WIDTH 16.1 % (11.5-14.5); WHITE BLOOD COUNT 12.4 x10^3/uL (4.0-11.0)
[2016-10-03 09:44] LABS: ANION GAP 10 (6-14); BLOOD UREA NITROGEN 13 mg/dL (7-20); CALCIUM 8.6 mg/dL (8.5-10.1); CARBON DIOXIDE 30 mmol/L (21-32); CHLORIDE 102 mmol/L (98-107); CREATININE 0.9 mg/dL (0.6-1.0); GFR 61.9; GLUCOSE 133 mg/dL (70-99); MAGNESIUM 1.7 mg/dL (1.8-2.4); POTASSIUM 3.3 mmol/L (3.5-5.1); SODIUM 142 mmol/L (136-145)
[2016-10-03] MEDS ORDERED: PROPOFOL 0 ML IV ONE ×2 (09:51→13:27)
[2016-10-03] MEDS ORDERED: POTASSIUM CHLORIDE 20 MEQ/15 ML ORAL LIQUID. PO ONE (11:00)
[2016-10-03] MEDS ORDERED: LIDOCAINE 2% PF Vial for OR 5 ML VIAL. ONE ×2 (13:27→13:53)
[2016-10-03] MEDS ORDERED: PROPOFOL 20 ML IV ONE (13:27)
--- NOTE | 2016-10-03 14:26 | EKG ---
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
[2016-10-03 14:45] VITALS: BP 132/48
[2016-10-03] MEDS ORDERED: DRON400T PO (15:31)
--- NOTE | 2016-10-03 16:09 | PDOC4 ---
Operative Note Operative Note Procedure. Cardioversion. The patient is a pleasant 71-year-old female with a history of atrial fibrillation. Patient has been under rate control medications and anticoagulation for greater than 6 weeks. She is also followed by the electrophysiology service who recommended cardioversion. Risks and benefits of the procedure were discussed with the patient. She agreed to proceed. The anesthesiology service provided sedation for the patient. Once an appropriate level was obtained the patient was cardioverted with 200 J of synchronized energy. She converted to a sinus rhythm. She awoke from her anesthesia normally and was alert and oriented. She'll be continued on her present medications and followed up in the office in 3 weeks. Conclusions. Successful cardioversion of atrial fibrillation to sinus rhythm. MYA CANTRELL MD Oct 03, 2016 16:09
== END 2016-10-03 15:05 | disposition home or self-care (01) ==
LOC: SURG 08:05
PROVIDERS: ATTEND Internal Medicine Cardiovascular Disease
DX: I48.91 Unspecified atrial fibrillation (principal); Z98.41 Cataract extraction status, right eye; Z98.42 Cataract extraction status, left eye; I25.10 Atherosclerotic heart disease of native coronary artery without angina pectoris; E78.00 Pure hypercholesterolemia, unspecified; I10 Essential (primary) hypertension; Z90.49 Acquired absence of other specified parts of digestive tract; E66.9 Obesity, unspecified; Z68.45 Body mass index [BMI] 70 or greater, adult; K21.9 Gastro-esophageal reflux disease without esophagitis; Z90.710 Acquired absence of both cervix and uterus; Z87.39 Personal history of other diseases of the musculoskeletal system and connective tissue; M19.90 Unspecified osteoarthritis, unspecified site; Z72.89 Other problems related to lifestyle; F17.200 Nicotine dependence, unspecified, uncomplicated; D64.9 Anemia, unspecified; Z91.013 Allergy to seafood; Z88.2 Allergy status to sulfonamides; Z91.018 Allergy to other foods
CPT/HCPCS: 36415; 80048; 80162; 83735; 85027; 92960; 93005; J2704

== ENCOUNTER 2017-02-03 17:16 | Inpatient (IN) | payer MEDICARE ==
[~2017-02-03] VITALS: Ht 154.9 cm; Wt 101.7 kg
[~2017-02-03 17:16] MED LIST changes: +DRON400T PO; -HYDROmorphone 2 MG/ML VIAL IV PRN; -IV RINGERS,LACTATED 1000ML 1,000 ML IV SCH; -LIDOCAINE 1% 1 ML SYRINGE. ID PRN; -MORPHINE SULFATE 2 MG/ML DISP.SYRIN. IV PRN; -ONDANSETRON PF 4 MG/2 ML VIAL. IV PRN; -PROCHLORPERAZINE 10 MG/2 ML VIAL. IV PRN; -fentaNYL PF VIAL 100 MCG/2 ML VIAL IV PRN
[2017-02-03] MEDS: NITROGLYCERIN PREMIX 250 ML IV ONE ×2 (17:30→19:00)
[2017-02-03] MEDS ORDERED: ASPIRIN CHEWABLE 81 MG TABLET. PO ONE (17:30)
--- NOTE | 2017-02-03 17:38 | PHYS DOC ---
Past Medical History Past Medical History: A-Fib, Arthritis, Asthma, CAD, Depression, High Cholesterol, Hypertension, Other Additional Past Medical Histor: Osteoporosis Past Surgical History: Appendectomy, Cholecystectomy, Hysterectomy, Tonsillectomy, Other Additional Past Surgical Histo: L Arm w/ hardware,CARDIOVERSION Alcohol Use: Heavy Drug Use: None Adult General Chief Complaint Chief Complaint: CHEST PAIN HPI HPI Patient is a 72-year-old female who presents with palpitations and chest pain. 72-year-old female past medical history of coronary artery disease as well as atrial fibrillation. She relates she has had cardioversions in the past. Approximately one hour before coming in her heart began beating very quickly and then slowly. It is associated with chest pain. Chest pains to the neck and to the mid sternal area. She has not noted any exacerbating or relieving factors however when the chest pain is beating fast her pain is worse. She has not sure if she is just "tensing up" or if this is chest pain. She has had a catheter of her heart in the past and has coronary artery disease but denies having CABG or any stents placed. Review of Systems Review of Systems Constitutional: Denies fever or chills Eyes: Denies change in visual acuity, redness, or eye pain HENT: Denies nasal congestion or sore throat Respiratory: Denies cough or shortness of breath Cardiovascular: No additional information not addressed in HPI GI: Denies abdominal pain, nausea, vomiting, bloody stools or diarrhea : Denies dysuria or hematuria Musculoskeletal: Denies back pain or joint pain Integument: Denies rash or skin lesions Neurologic: Denies headache, focal weakness or sensory changes Endocrine: Denies polyuria or polydipsia Family History Family History Non contributory Current Medications Current Medications Current Medications Medications (Trade) Dose Ordered Sig/Dev Start Time Stop Time Status Last Admin Dose Admin Aspirin (Children'S Aspirin) 324 mg 1X ONCE 02/03/17 17:30 02/03/17 17:40 DC 02/03/17 17:48 324 MG Nitroglycerin (Nitrostat) 0.4 mg PRN Q5MIN PRN 02/03/17 17:30 02/04/17 17:29 02/03/17 17:48 0.4 MG Nitroglycerin/ Dextrose 250 ml @ 3 mls/hr 1X ONCE 02/03/17 17:30 02/07/17 04:49 Allergies Allergies Allergies Coded Allergies Type Severity Reaction Last Updated Verified iodine Allergy Severe Anaphylaxis 10/03/16 Yes iodine Allergy Severe anaphylaxis, throat swelling and difficulty breathing No shellfish derived Allergy Severe Anaphylaxis 10/03/16 Yes Sulfa (Sulfonamide Antibiotics) Allergy Intermediate Swelling, pain in neck Yes Physical Exam Physical Exam Constitutional: Well developed, well nourished, no acute distress, non-toxic appearance. HENT: Normocephalic, atraumatic, bilateral external ears normal, oropharynx moist, no oral exudates, nose normal. Eyes: PERRLA, EOMI, conjunctiva normal, no discharge. Neck: Normal range of motion, no tenderness, supple, no stridor. Cardiovascular: Heart rate controlled with appears to be frequent PVCs. Lungs & Thorax: Bilateral breath sounds clear to auscultation Abdomen: Bowel sounds normal, soft, no tenderness, no masses, no pulsatile masses. Skin: Warm, dry, no erythema, no rash. Back: No tenderness, no CVA tenderness. Extremities: No tenderness, no cyanosis, no clubbing, ROM intact, no edema. Neurologic: Alert and oriented X 3, normal motor function, normal sensory function, no focal deficits noted. Psychologic: Affect normal, judgement normal, mood normal. Current Patient Data Vital Signs Vital Signs Date Time Temp Pulse Resp B/P (MAP) Pulse Ox O2 Delivery O2 Flow Rate FiO2 02/03/17 18:26 63 20 150/72 (98) 95 Room Air 02/03/17 17:17 98.2 98.2 Lab Values Laboratory Tests Test 02/03/17 17:34 White Blood Count 9.8 x10^3/uL (4.0-11.0) Red Blood Count 3.82 x10^6/uL (3.50-5.40) Hemoglobin 10.0 g/dL (12.0-15.5) L Hematocrit 30.8 % (36.0-47.0) L Mean Corpuscular Volume 81 fL (79-100) Mean Corpuscular Hemoglobin 26 pg (25-35) Mean Corpuscular Hemoglobin Concent 33 g/dL (31-37) Red Cell Distribution Width 16.6 % (11.5-14.5) H Platelet Count 257 x10^3/uL (140-400) Neutrophils (%) (Auto) 81 % (31-73) H Lymphocytes (%) (Auto) 13 % (24-48) L Monocytes (%) (Auto) 4 % (0-9) Eosinophils (%) (Auto) 1 % (0-3) Basophils (%) (Auto) 1 % (0-3) Neutrophils # (Auto) 7.9 x10^3uL (1.8-7.7) H Lymphocytes # (Auto) 1.3 x10^3/uL (1.0-4.8) Monocytes # (Auto) 0.4 x10^3/uL (0.0-1.1) Eosinophils # (Auto) 0.1 x10^3/uL (0.0-0.7) Basophils # (Auto) 0.1 x10^3/uL (0.0-0.2) Sodium Level 141 mmol/L (136-145) Potassium Level 3.6 mmol/L (3.5-5.1) Chloride Level 105 mmol/L (98-107) Carbon Dioxide Level 27 mmol/L (21-32) Anion Gap 9 (6-14) Blood Urea Nitrogen 17 mg/dL (7-20) Creatinine 0.7 mg/dL (0.6-1.0) Estimated GFR (Cockcroft-Gault) 82.5 BUN/Creatinine Ratio 24 (6-20) H Glucose Level 132 mg/dL (70-99) H Calcium Level 8.7 mg/dL (8.5-10.1) Magnesium Level 2.0 mg/dL (1.8-2.4) Total Bilirubin 0.3 mg/dL (0.2-1.0) Aspartate Amino Transferase (AST) 29 U/L (15-37) Alanine Aminotransferase (ALT) 32 U/L (14-59) Alkaline Phosphatase 120 U/L (46-116) H Troponin I Quantitative < 0.017 ng/mL (0.000-0.055) Total Protein 7.4 g/dL (6.4-8.2) Albumin 3.3 g/dL (3.4-5.0) L Albumin/Globulin Ratio 0.8 (1.0-1.7) L Laboratory Tests 02/03/17 17:34 Laboratory Tests 02/03/17 17:34 EKG EKG Sinus rhythm with abberantly conducted atrial complexes with a rate of 89. No STEMI Interpretation Time: 530pm Radiology/Procedures Radiology/Procedures CXR without acute abnormality int by me pending rads over-read. Impressions: unstable angina Course & Med Decision Making Course & Med Decision Making Pertinent Labs and Imaging studies reviewed. (See chart for details) 651 pm: Patient is currently pain free. Her initial labs are normal. Discussed with Dr. Hsieh who will admit to the CVICU for unstable angina. The patient is clinically improved. Given that she is on xarelto, I will not initiate heparin. Dragon Disclaimer Dragon Disclaimer This electronic medical record was generated, in whole or in part, using a voice recognition dictation system. Departure Departure Impression: Primary Impression: Unstable angina Disposition: ADMITTED INPATIENT Admitting Physician: Nanette Hsieh Condition: IMPROVED Referrals: NANETTE HSIEH MD (PCP) CARMEN MEJIA MD Feb 03, 2017 17:38
[2017-02-03 17:46] LABS: BASO # 0.1 x10^3/uL (0.0-0.2); BASO % 1 % (0-3); EOS % 1 % (0-3); HEMATOCRIT 30.8 % (36.0-47.0); LYMPH # 1.3 x10^3/uL (1.0-4.8); LYMPH % 13 % (24-48); MEAN CORPUSCULAR HEMOGLOBIN 26 pg (25-35); MEAN CORPUSCULAR HGB CONC 33 g/dL (31-37); MEAN CORPUSCULAR VOLUME 81 fL (79-100); MONO % 4 % (0-9); NEUT % 81 % (31-73); PLATELET COUNT 257 x10^3/uL (140-400); RED BLOOD COUNT 3.82 x10^6/uL (3.50-5.40); RED CELL DISTRIBUTION WIDTH 16.6 % (11.5-14.5); WHITE BLOOD COUNT 9.8 x10^3/uL (4.0-11.0)
[2017-02-03] MEDS: NITROGLYCERIN SUBLINGUAL 0.4 MG BOTTLE OF 25. SL PRN ×2 (17:48→18:51)
[2017-02-03 18:00] LABS: ALBUMIN 3.3 g/dL (3.4-5.0); ALBUMIN/GLOBULIN RATIO 0.8 (1.0-1.7); CALCIUM 8.7 mg/dL (8.5-10.1); CREATININE 0.7 mg/dL (0.6-1.0); GFR 82.5; POTASSIUM 3.6 mmol/L (3.5-5.1); TOTAL BILIRUBIN 0.3 mg/dL (0.2-1.0); TOTAL PROTEIN 7.4 g/dL (6.4-8.2)
[2017-02-03 20:28] VITALS: BP 147/63
[2017-02-03] MEDS ORDERED: NON FORMULARY ITEM (Albuterol Sulfate (Proair Hfa Inhaler) 2 PUFF) INH PRN (20:30)
[2017-02-03] MEDS ORDERED: ALPRAZolam 0.25 MG TABLET PO PRN (20:30)
[2017-02-03] MEDS ORDERED: HYDROcodone/APAP 7.5/325MG 1 TAB TABLET PO PRN (20:30)
[2017-02-03] MEDS: traZODone 50 MG TABLET. PO SCH (20:59)
[2017-02-03] MEDS: DIGOXIN 125 MCG TABLET. PO SCH (20:59)
[2017-02-03] MEDS: ATORVASTATIN CALCIUM 20 MG TABLET PO SCH (20:59)
[2017-02-03] MEDS ORDERED: MECLIZINE HCL 12.5 MG TABLET. PO PRN (21:00)
[2017-02-03] MEDS ORDERED: ALBUTEROL SULFATE 2.5 MG/3 ML NEBU. NEB PRN (21:00)
[2017-02-03 23:20] VITALS: BP 155/69
[2017-02-04] VITALS (11 sets, daily range): BP systolic 118–179; BP diastolic 55–70
--- NOTE | 2017-02-04 06:39 | EKG ---
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
--- NOTE | 2017-02-04 07:54 | EKG ---
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
--- NOTE | 2017-02-04 08:10 | RAD ---
Indication chest pain. A single view of the chest was obtained. Comparison is made to an examination 07/20/2016. The heart, pulmonary vessels and mediastinum appear normal. The lungs are clear. There has not been a significant change in the appearance of the chest compared to the previous exam. IMPRESSION: No acute or focal process. No significant change
[2017-02-04] MEDS: ALBUTEROL SULFATE 2.5 MG/3 ML NEBU. NEB SCH ×4 (08:29→19:37)
[2017-02-04] MEDS: BUDESONIDE 0.5 MG/2 ML NEBU. NEB SCH ×2 (08:29→19:37)
[2017-02-04] MEDS: PANTOPRAZOLE 40 MG TABLET.DR. PO SCH (08:53)
[2017-02-04] MEDS: TRIAMTERENE/HCTZ 37.5/25MG TABLET. PO SCH ×2 (08:53→08:56)
[2017-02-04] MEDS: ASPIRIN ENTERIC COATED 81 MG TABLET.DR. PO SCH (08:54)
[2017-02-04] MEDS: DULoxetine HCL 30 MG CAPSULE.DR PO SCH (08:54)
[2017-02-04] MEDS: RIVAROXABAN 10 MG TABLET. PO SCH ×2 (08:54→09:00)
[2017-02-04] MEDS: CHOLECALCIFEROL (VITAMIN D3) 1,000 UNIT TABLET PO SCH (08:54)
[2017-02-04] MEDS: LOSARTAN POTASSIUM 25 MG TABLET. PO SCH (08:54)
[2017-02-04] MEDS ORDERED: NON FORMULARY ITEM (Fluticasone/Vilanterol (Breo Ellipta 100-25 Mcg Inh) 1 PUFF) IH SCH (09:00)
--- NOTE | 2017-02-04 13:34 | PDOC1 ---
History and Physical Date of Admission Date of Admission 02/03/17 Identification/Chief Complaint Chief Complaint palpitation /CP Problems: Source Source: Chart review, Patient History of Present Illness History of Present Illness Patient is a 72-year-old female with hx of CAD and A Fib who presents with palpitations and chest pain. She state she had very stressful week end wake up Saturday not feeling good and very tired, approximately one hour before presentation she had very strong palpitation and felt pain was scared and presented to ED. Chest pains radiate to the neck and to the mid sternal area. She has not noted any exacerbating or relieving factors however when the heart is beating fast her pain is worse. She was not sure if she is just "tensing up " or if this is chest pain. Past Medical History Cardiovascular: AFIB, CAD, HTN, Hyperlipidemia Pulmonary: Other CENTRAL NERVOUS SYSTEM: Other GI: GERD, Other Heme/Onc: No pertinent hx Hepatobiliary: Other Psych: Anxiety, Depression Rheumatologic: Rheumatoid arthritis Renal/: No pertinent hx Endocrine: Osteoporosis Past Surgical History Past Surgical History: Appendectomy, Cholecystectomy, Tonsillectomy, Hysterectomy, Other Family History Family History: Coronary Artery Disease, Hypertension Social History Smoke: No ALCOHOL: none Drugs: None Current Problem List Problem List Problems Medical Problems: (1) Unstable angina Status: Acute Current Medications Current Medications Current Medications Medications (Trade) Dose Ordered Sig/Dev Start Time Stop Time Status Last Admin Dose Admin Acetaminophen/ Hydrocodone Bitart (Lortab 7.5/325) 1 tab PRN Q6HRS PRN 02/03/17 20:30 Albuterol Sulfate (Ventolin Neb Soln) 2.5 mg RTQID 02/04/17 08:00 02/04/17 08:29 2.5 MG Alprazolam (Xanax) 0.25 mg PRN Q6HRS PRN 02/03/17 20:30 Aspirin (Children'S Aspirin) 324 mg 1X ONCE 02/03/17 17:30 02/03/17 17:40 DC 02/03/17 17:48 324 MG Aspirin (Ecotrin) 81 mg DAILY 02/04/17 09:00 02/04/17 08:54 81 MG Atorvastatin Calcium (Lipitor) 20 mg HS 02/03/17 21:00 02/03/17 20:59 20 MG Budesonide (Pulmicort) 0.5 mg RTBID 02/04/17 08:00 02/04/17 08:29 0.5 MG Digoxin (Lanoxin) 125 mcg HS 02/03/17 21:00 02/03/17 20:59 125 MCG Diltiazem HCl (Cardizem 24hr Cd) 360 mg DAILY 02/04/17 09:00 02/04/17 08:53 360 MG Dronedarone (Multaq) 400 mg DAILYWSUP 02/04/17 17:00 Duloxetine HCl (Cymbalta) 60 mg DAILY 02/04/17 09:00 02/04/17 08:54 60 MG Info (Anti-Coagulation Monitoring By Pharmacy) 1 each PRN DAILY PRN 02/04/17 10:30 Losartan Potassium (Cozaar) 50 mg DAILY 02/04/17 09:00 02/04/17 08:54 50 MG Meclizine HCl (Antivert) 25 mg PRN TID PRN 02/03/17 21:00 Nitroglycerin (Nitrostat) 0.4 mg PRN Q5MIN PRN 02/03/17 17:30 02/04/17 17:29 02/03/17 18:51 0.4 MG Nitroglycerin/ Dextrose 250 ml @ 3 mls/hr 1X ONCE 02/03/17 17:30 02/07/17 04:49 02/03/17 19:00 3 MLS/HR Non-Formulary Medication 1 puff DAILY 02/04/17 09:00 UNV Pantoprazole Sodium (Protonix) 40 mg DAILYAC 02/04/17 07:30 02/04/17 08:53 40 MG Rivaroxaban (Xarelto) 20 mg DAILY 02/04/17 08:00 02/04/17 08:54 20 MG Trazodone HCl (Desyrel) 50 mg HS 02/03/17 21:00 02/03/17 20:59 50 MG Triamterene/HCTZ (Maxzide 37.5/ 25mg) 1 tab DAILY 02/04/17 09:00 Vitamin D (Vitamin D3) 2,000 unit DAILY 02/04/17 09:00 02/04/17 08:54 2,000 UNIT Allergies Allergies Allergies Coded Allergies Type Severity Reaction Last Updated Verified iodine Allergy Severe Anaphylaxis 10/03/16 Yes iodine Allergy Severe anaphylaxis, throat swelling and difficulty breathing No shellfish derived Allergy Severe Anaphylaxis 10/03/16 Yes Sulfa (Sulfonamide Antibiotics) Allergy Intermediate Swelling, pain in neck Yes ROS Review of System CONSTITUTIONAL: No fever or chills EYES: No recent changes SKIN: No rash or itching CARDIOVASCULAR: see HPI RESPIRATORY: No SOB or cough GASTROINTESTINAL: No nausea, vomiting or abdominal pain NEUROLOGICAL: No headaches + general weakness ENDOCRINE: No cold or heat intolerance GENITOURINARY: No urgency or frequency of urination MUSCULOSKELETAL: + arthritis LYMPHATICS: No enlarged lymph nodes PSYCHIATRIC: + anxiety and depression no suicide ideation Physical Exam Physical Exam GEN.: No apparent distress. Alert and oriented. HEENT: Head is normocephalic, atraumatic NECK: Supple. LUNGS: Clear to auscultation. HEART: RRR, S1, S2 present. Peripheral pulses intact ABDOMEN: Soft, nontender. Positive bowel sounds. EXTREMITIES: Without any cyanosis. NEUROLOGIC: Normal speech, normal tone PSYCHIATRIC: Normal affect, normal mood. SKIN: No ulcerations Vitals Vitals Vital Signs Date Time Temp Pulse Resp B/P (MAP) Pulse Ox O2 Delivery O2 Flow Rate FiO2 02/04/17 10:28 97.4 69 19 148/59 (88) 96 Room Air 97.4 Labs Labs Laboratory Tests Test 02/03/17 17:34 02/04/17 00:25 02/04/17 06:50 White Blood Count 9.8 x10^3/uL (4.0-11.0) Red Blood Count 3.82 x10^6/uL (3.50-5.40) Hemoglobin 10.0 g/dL (12.0-15.5) Hematocrit 30.8 % (36.0-47.0) Mean Corpuscular Volume 81 fL (79-100) Mean Corpuscular Hemoglobin 26 pg (25-35) Mean Corpuscular Hemoglobin Concent 33 g/dL (31-37) Red Cell Distribution Width 16.6 % (11.5-14.5) Platelet Count 257 x10^3/uL (140-400) Neutrophils (%) (Auto) 81 % (31-73) Lymphocytes (%) (Auto) 13 % (24-48) Monocytes (%) (Auto) 4 % (0-9) Eosinophils (%) (Auto) 1 % (0-3) Basophils (%) (Auto) 1 % (0-3) Neutrophils # (Auto) 7.9 x10^3uL (1.8-7.7) Lymphocytes # (Auto) 1.3 x10^3/uL (1.0-4.8) Monocytes # (Auto) 0.4 x10^3/uL (0.0-1.1) Eosinophils # (Auto) 0.1 x10^3/uL (0.0-0.7) Basophils # (Auto) 0.1 x10^3/uL (0.0-0.2) Sodium Level 141 mmol/L (136-145) Potassium Level 3.6 mmol/L (3.5-5.1) Chloride Level 105 mmol/L (98-107) Carbon Dioxide Level 27 mmol/L (21-32) Anion Gap 9 (6-14) Blood Urea Nitrogen 17 mg/dL (7-20) Creatinine 0.7 mg/dL (0.6-1.0) Estimated GFR (Cockcroft-Gault) 82.5 BUN/Creatinine Ratio 24 (6-20) Glucose Level 132 mg/dL (70-99) Calcium Level 8.7 mg/dL (8.5-10.1) Magnesium Level 2.0 mg/dL (1.8-2.4) Total Bilirubin 0.3 mg/dL (0.2-1.0) Aspartate Amino Transf (AST/SGOT) 29 U/L (15-37) Alanine Aminotransferase (ALT/SGPT) 32 U/L (14-59) Alkaline Phosphatase 120 U/L (46-116) Troponin I Quantitative < 0.017 ng/mL (0.000-0.055) 0.017 ng/mL (0.000-0.055) < 0.017 ng/mL (0.000-0.055) Total Protein 7.4 g/dL (6.4-8.2) Albumin 3.3 g/dL (3.4-5.0) Albumin/Globulin Ratio 0.8 (1.0-1.7) Laboratory Tests Test 02/03/17 17:34 02/04/17 00:25 02/04/17 06:50 White Blood Count 9.8 x10^3/uL (4.0-11.0) Red Blood Count 3.82 x10^6/uL (3.50-5.40) Hemoglobin 10.0 g/dL (12.0-15.5) Hematocrit 30.8 % (36.0-47.0) Mean Corpuscular Volume 81 fL (79-100) Mean Corpuscular Hemoglobin 26 pg (25-35) Mean Corpuscular Hemoglobin Concent 33 g/dL (31-37) Red Cell Distribution Width 16.6 % (11.5-14.5) Platelet Count 257 x10^3/uL (140-400) Neutrophils (%) (Auto) 81 % (31-73) Lymphocytes (%) (Auto) 13 % (24-48) Monocytes (%) (Auto) 4 % (0-9) Eosinophils (%) (Auto) 1 % (0-3) Basophils (%) (Auto) 1 % (0-3) Neutrophils # (Auto) 7.9 x10^3uL (1.8-7.7) Lymphocytes # (Auto) 1.3 x10^3/uL (1.0-4.8) Monocytes # (Auto) 0.4 x10^3/uL (0.0-1.1) Eosinophils # (Auto) 0.1 x10^3/uL (0.0-0.7) Basophils # (Auto) 0.1 x10^3/uL (0.0-0.2) Sodium Level 141 mmol/L (136-145) Potassium Level 3.6 mmol/L (3.5-5.1) Chloride Level 105 mmol/L (98-107) Carbon Dioxide Level 27 mmol/L (21-32) Anion Gap 9 (6-14) Blood Urea Nitrogen 17 mg/dL (7-20) Creatinine 0.7 mg/dL (0.6-1.0) Estimated GFR (Cockcroft-Gault) 82.5 BUN/Creatinine Ratio 24 (6-20) Glucose Level 132 mg/dL (70-99) Calcium Level 8.7 mg/dL (8.5-10.1) Magnesium Level 2.0 mg/dL (1.8-2.4) Total Bilirubin 0.3 mg/dL (0.2-1.0) Aspartate Amino Transf (AST/SGOT) 29 U/L (15-37) Alanine Aminotransferase (ALT/SGPT) 32 U/L (14-59) Alkaline Phosphatase 120 U/L (46-116) Troponin I Quantitative < 0.017 ng/mL (0.000-0.055) 0.017 ng/mL (0.000-0.055) < 0.017 ng/mL (0.000-0.055) Total Protein 7.4 g/dL (6.4-8.2) Albumin 3.3 g/dL (3.4-5.0) Albumin/Globulin Ratio 0.8 (1.0-1.7) VTE Prophylaxis Ordered VTE Prophylaxis Devices: Yes VTE Pharmacological Prophylaxi: Yes Assessment/Plan Assessment/Plan 1- Palpitation was in [place] in ER then A Fib now sinus 2-hx paroxysmal A Fib and CAD 3-HTN 4-GERD 5-obesity 6- depression and anxiety plan C.V consult , check TSH and treat depression/anxiety NANETTE HSIEH MD Feb 04, 2017 13:34
[2017-02-04] MEDS ORDERED: ENOXAPARIN 40 MG/0.4 ML SYRINGE. SQ SCH (13:45)
[2017-02-04] MEDS: ANTI-COAG MONITOR BY PHARMACY. MC PRN (14:31)
[2017-02-04] MEDS: busPIRone 10 MG TABLET. PO SCH ×2 (14:44→20:39)
--- NOTE | 2017-02-04 16:22 | PDOC2 ---
VALERIE HIDALGO HORSE TREKKING GUIDE 02/04/17 1622: CARDIAC CONSULT DATE OF CONSULT Date of Consult DATE: 02/04/17 TIME: 16:11 REASON FOR CONSULT Reason for Consult: CP, Arrhythmia REFERRING PHYSICIAN Referring Physician: Collins SOURCE Source: Chart review, Patient HISTORY OF PRESENT ILLNESS HISTORY OF PRESENT ILLNESS This is a pleasant 72 yo female admitted for complains of chest pain. Reports that she woke up yesterday she was ok then started having mid chest pressure that radiated to her neck. Denies any nausea but a little SOA. Also noted with MORALES but does not use her PRN inhaler as instructed. Deneis any palpitations but more feeling of heavy pounding in her chest. This weekend she has had insomnia, no PND, orthopnea, but constantly anxious about family issues. Denies any palpitations or dizziness. She is compliant with her medications. She does have hiatal hernia and had wings the night before her chest discomfort started happening. PAST MEDICAL HISTORY Past Medical History Cardiovascular: AFIB (), CAD (reported mild), HTN, Hyperlipidemia Pulmonary: Other (lung nodules followed by Dr. Youssef - "stable" ) CENTRAL NERVOUS SYSTEM: Other (none) GI: GERD, Other (hiatal hernia) Heme/Onc: No pertinent hx Hepatobiliary: Other ("enlarged liver" ) Psych: Anxiety, Depression Musculoskeletal: Other (dislocated right elbow; fracture right forearm with surgical repair) Rheumatologic: Rheumatoid arthritis ENT: No pertinent hx Renal/: No pertinent hx Endocrine: Osteoporosis Dermatology: No pertinent hx PAST SURGICAL HISTORY Past Surgical History Appendectomy, Cholecystectomy, Tonsillectomy, Hysterectomy, Other (surgical repair right forearm fracture) FAMILY HISTORY Family History Coronary Artery Disease (father age 72 of [place] after GI surgery), Hypertension (mother) SOCIAL HISTORY Social History Smoke: Quit (in her 20s) ALCOHOL: other (usually 2 glassess of wine/day) Drugs: None Lives: Alone CURRENT MEDICATIONS CURRENT MEDICATIONS Current Medications Medications (Trade) Dose Ordered Sig/Dev Route PRN Reason Start Time Stop Time Status Last Admin Dose Admin Aspirin (Children'S Aspirin) 324 mg 1X ONCE PO 02/03/17 17:30 02/03/17 17:40 DC 02/03/17 17:48 Nitroglycerin (Nitrostat) 0.4 mg PRN Q5MIN PRN SL CP RATING > 04/1702/03/17 17:30 02/04/17 17:29 02/03/17 18:51 Nitroglycerin/ Dextrose 250 ml @ 3 mls/hr 1X ONCE IV 02/03/17 17:30 02/07/17 04:49 02/03/17 19:00 Aspirin (Ecotrin) 81 mg DAILY PO 02/04/17 09:00 02/04/17 08:54 Atorvastatin Calcium (Lipitor) 20 mg HS PO 02/03/17 21:00 02/03/17 20:59 Vitamin D (Vitamin D3) 2,000 unit DAILY PO 02/04/17 09:00 02/04/17 08:54 Digoxin (Lanoxin) 125 mcg HS PO 02/03/17 21:00 02/03/17 20:59 Diltiazem HCl (Cardizem 24hr Cd) 360 mg DAILY PO 02/04/17 09:00 02/04/17 08:53 Losartan Potassium (Cozaar) 50 mg DAILY PO 02/04/17 09:00 02/04/17 08:54 Trazodone HCl (Desyrel) 50 mg HS PO 02/03/17 21:00 02/03/17 20:59 Duloxetine HCl (Cymbalta) 60 mg DAILY PO 02/04/17 09:00 02/04/17 08:54 Pantoprazole Sodium (Protonix) 40 mg DAILYAC PO 02/04/17 07:30 02/04/17 08:53 Rivaroxaban (Xarelto) 20 mg DAILY PO 02/04/17 08:00 02/04/17 08:54 Budesonide (Pulmicort) 0.5 mg RTBID NEB 02/04/17 08:00 02/04/17 08:29 Albuterol Sulfate (Ventolin Neb Soln) 2.5 mg RTQID NEB 02/04/17 08:00 02/04/17 13:28 Info (Anti-Coagulation Monitoring By Pharmacy) 1 each PRN DAILY PRN MC SEE COMMENTS 02/04/17 10:30 02/04/17 14:31 Buspirone HCl (Buspar) 10 mg BID PO 02/04/17 14:00 02/04/17 14:44 ALLERGIES ALLERGIES: Coded Allergies: iodine (Verified Allergy, Severe, Anaphylaxis, 10/03/16) iodine (Unverified Allergy, Severe, anaphylaxis, throat swelling and difficulty breathing, 10/03/16) shellfish derived (Verified Allergy, Severe, Anaphylaxis, 10/03/16) Sulfa (Sulfonamide Antibiotics) (Verified Allergy, Intermediate, Swelling , pain in neck, 10/03/16) ROS Review of System 14 point ROS evaluated with pertinent positive per HPI PHYSICAL EXAM General: Alert, Oriented X3, Cooperative, No acute distress HEENT: Atraumatic, Mucous membr. moist/pink Lungs: Other (diffuse faint wheeze) Heart: Regular rate (SR), Normal S1, Normal S2, Other (2/6 systolic murmur to LLS border) Abdomen: Soft, No tenderness Extremities: No cyanosis, No edema Skin: No breakdown, No significant lesion Neuro: Normal speech, Sensation intact Psych/Mental Status: Mental status NL, Mood NL MUSCULOSKELETAL: Osteoarthritic changes both hands VITALS VITALS Vital Signs Date Time Temp Pulse Resp B/P (MAP) Pulse Ox O2 Delivery O2 Flow Rate FiO2 02/04/17 14:25 98.2 69 18 141/61 (87) 96 Room Air 98.2 LABS Lab: Laboratory Tests Test 02/03/17 17:34 02/04/17 00:25 02/04/17 06:50 White Blood Count 9.8 x10^3/uL (4.0-11.0) Red Blood Count 3.82 x10^6/uL (3.50-5.40) Hemoglobin 10.0 g/dL (12.0-15.5) Hematocrit 30.8 % (36.0-47.0) Mean Corpuscular Volume 81 fL (79-100) Mean Corpuscular Hemoglobin 26 pg (25-35) Mean Corpuscular Hemoglobin Concent 33 g/dL (31-37) Red Cell Distribution Width 16.6 % (11.5-14.5) Platelet Count 257 x10^3/uL (140-400) Neutrophils (%) (Auto) 81 % (31-73) Lymphocytes (%) (Auto) 13 % (24-48) Monocytes (%) (Auto) 4 % (0-9) Eosinophils (%) (Auto) 1 % (0-3) Basophils (%) (Auto) 1 % (0-3) Neutrophils # (Auto) 7.9 x10^3uL (1.8-7.7) Lymphocytes # (Auto) 1.3 x10^3/uL (1.0-4.8) Monocytes # (Auto) 0.4 x10^3/uL (0.0-1.1) Eosinophils # (Auto) 0.1 x10^3/uL (0.0-0.7) Basophils # (Auto) 0.1 x10^3/uL (0.0-0.2) Sodium Level 141 mmol/L (136-145) Potassium Level 3.6 mmol/L (3.5-5.1) Chloride Level 105 mmol/L (98-107) Carbon Dioxide Level 27 mmol/L (21-32) Anion Gap 9 (6-14) Blood Urea Nitrogen 17 mg/dL (7-20) Creatinine 0.7 mg/dL (0.6-1.0) Estimated GFR (Cockcroft-Gault) 82.5 BUN/Creatinine Ratio 24 (6-20) Glucose Level 132 mg/dL (70-99) Calcium Level 8.7 mg/dL (8.5-10.1) Magnesium Level 2.0 mg/dL (1.8-2.4) Total Bilirubin 0.3 mg/dL (0.2-1.0) Aspartate Amino Transf (AST/SGOT) 29 U/L (15-37) Alanine Aminotransferase (ALT/SGPT) 32 U/L (14-59) Alkaline Phosphatase 120 U/L (46-116) Troponin I Quantitative < 0.017 ng/mL (0.000-0.055) 0.017 ng/mL (0.000-0.055) < 0.017 ng/mL (0.000-0.055) Total Protein 7.4 g/dL (6.4-8.2) Albumin 3.3 g/dL (3.4-5.0) Albumin/Globulin Ratio 0.8 (1.0-1.7) Thyroid Stimulating Hormone (TSH) 2.882 uIU/mL (0.358-3.74) Digoxin Level 1.1 ng/mL (0.9-2.0) Digoxin Last Dose Date 02/03/17 Digoxin Last Dose Time 0700 ECHOCARDIOGRAM ECHOCARDIOGRAM <Conclusion> The left ventricle is normal size. Left ventricle systolic function is normal. The Ejection Fraction is 50-55%. There is no significant aortic valvular stenosis. Doppler and Color Flow revealed no significant aortic regurgitation. Doppler and Color Flow revealed trace mitral regurgitation. Doppler and Color Flow revealed trace tricuspid regurgitation. The PA pressure was estimated at 24 mmHg. DATE: 06/22/16 1018 STRESS TEST STRESS TEST Conclusion 1. Normal myocardial perfusion at stress. 2. No EKG changes. Normal EF at > 70% 3. Low risk study DATE: 09/23/15 1329 ASSESSMENT/PLAN ASSESSMENT/PLAN 1. CP: troponin series normal. EKG SR without acute changes. Doubt ACS. Likely bronchospasm and anxiety 2. PAFIB: SR 3. HTN; controlled 4. HLP 5. Obesity: BMI 43 6. Uncontrolled anxiety: marked with insomnia and being teary about family dynamics. 7. Asthma exacerbation: per PCP. Recommendations 1. Continue AFIB regimen- xarelto, cardizem and dig and multaq. 2. MPI tomorrow given her risk factors unless symptomatology and troponin are significantly changed. 3. Continue with secondary prevention Problems: CHRISTINE ART MD 02/04/17 1826: CARDIAC CONSULT ALLERGIES ALLERGIES: Coded Allergies: iodine (Verified Allergy, Severe, Anaphylaxis, 10/03/16) iodine (Unverified Allergy, Severe, anaphylaxis, throat swelling and difficulty breathing, 10/03/16) shellfish derived (Verified Allergy, Severe, Anaphylaxis, 10/03/16) Sulfa (Sulfonamide Antibiotics) (Verified Allergy, Intermediate, Swelling , pain in neck, 10/03/16) ASSESSMENT/PLAN ASSESSMENT/PLAN Pt. seen and examined. Agree with above VISITOR USE ASSISTANT note. Atypical chest pain but with multiple risk factors EKG/Trop negative Risk stratification with MPI. Thanks for consult. Problems: VALERIE HIDALGO APRN Feb 04, 2017 16:22 CHRISTINE ART MD Feb 04, 2017 18:26
[2017-02-04] MEDS: DRONEDARONE HCL 400 MG TABLET PO SCH (16:52)
[2017-02-04] MEDS: traZODone 50 MG TABLET. PO SCH (20:39)
[2017-02-04] MEDS: ATORVASTATIN CALCIUM 20 MG TABLET PO SCH (20:39)
[2017-02-04] MEDS: DIGOXIN 125 MCG TABLET. PO SCH (20:39)
[2017-02-05 03:00] VITALS: BP 155/71
[2017-02-05 05:54] LABS: HEMATOCRIT 27.6 % (36.0-47.0); HEMOGLOBIN 8.9 g/dL (12.0-15.5); RED BLOOD COUNT 3.41 x10^6/uL (3.50-5.40); RED CELL DISTRIBUTION WIDTH 17.2 % (11.5-14.5)
[2017-02-05] MEDS: PANTOPRAZOLE 40 MG TABLET.DR. PO SCH ×3 (05:55→08:42)
[2017-02-05 06:13] LABS: CALCIUM 8.9 mg/dL (8.5-10.1); CREATININE 0.6 mg/dL (0.6-1.0); GFR 98.5; POTASSIUM 3.1 mmol/L (3.5-5.1)
[2017-02-05 07:00] VITALS: BP 174/61
[2017-02-05] MEDS: ALBUTEROL SULFATE 2.5 MG/3 ML NEBU. NEB SCH ×4 (08:05→19:16)
[2017-02-05] MEDS: BUDESONIDE 0.5 MG/2 ML NEBU. NEB SCH ×2 (08:05→19:16)
[2017-02-05] MEDS: CHOLECALCIFEROL (VITAMIN D3) 1,000 UNIT TABLET PO SCH (08:40)
[2017-02-05] MEDS: busPIRone 10 MG TABLET. PO SCH ×2 (08:40→20:58)
[2017-02-05] MEDS: DULoxetine HCL 30 MG CAPSULE.DR PO SCH (08:41)
[2017-02-05] MEDS: LOSARTAN POTASSIUM 25 MG TABLET. PO SCH (08:41)
[2017-02-05] MEDS: ASPIRIN ENTERIC COATED 81 MG TABLET.DR. PO SCH (08:43)
[2017-02-05] MEDS: TRIAMTERENE/HCTZ 37.5/25MG TABLET. PO SCH (08:43)
[2017-02-05] MEDS ORDERED: POTASSIUM CHLORIDE 20 MEQ TABLET.ER. PO ONE (09:15)
--- NOTE | 2017-02-05 10:07 | PDOC ---
SUBJECTIVE Subjective feeling ok , no CP no palpitation since admit OBJECTIVE Vital Signs Vital Signs Date Time Temp Pulse Resp B/P (MAP) Pulse Ox O2 Delivery O2 Flow Rate FiO2 02/05/17 08:41 60 174/61 02/05/17 08:07 91 Room Air 02/05/17 07:44 Room Air 02/05/17 07:00 98.6 71 22 174/61 (98) 89 Room Air 98.6 02/05/17 03:00 97.9 60 18 155/71 (99) 97 Room Air 97.9 02/04/17 23:00 97.7 63 19 144/60 (88) 99 Room Air 97.7 02/04/17 20:39 95 179/55 02/04/17 20:00 Room Air 02/04/17 19:39 97 Room Air 02/04/17 19:37 97 Room Air 02/04/17 19:00 97.5 95 22 179/55 (96) 98 Room Air 97.5 02/04/17 16:52 78 159/63 02/04/17 16:14 Room Air 02/04/17 14:25 98.2 69 18 141/61 (87) 96 Room Air 98.2 02/04/17 13:30 96 Room Air 02/04/17 10:28 97.4 69 19 148/59 (88) 96 Room Air 97.4 PHYSICAL EXAM Physical Exam lungs clear heart RRR abd soft and none tender ext no edema ASSESSMENT/PLAN Assessment/Plan plans for MPI stress test today, increase losartan due to high Bp Problems: COMMENT Lab Laboratory Tests Test 02/05/17 05:00 White Blood Count 9.0 x10^3/uL (4.0-11.0) Red Blood Count 3.41 x10^6/uL (3.50-5.40) Hemoglobin 8.9 g/dL (12.0-15.5) Hematocrit 27.6 % (36.0-47.0) Mean Corpuscular Volume 81 fL (79-100) Mean Corpuscular Hemoglobin 26 pg (25-35) Mean Corpuscular Hemoglobin Concent 32 g/dL (31-37) Red Cell Distribution Width 17.2 % (11.5-14.5) Platelet Count 240 x10^3/uL (140-400) Sodium Level 144 mmol/L (136-145) Potassium Level 3.1 mmol/L (3.5-5.1) Chloride Level 107 mmol/L (98-107) Carbon Dioxide Level 30 mmol/L (21-32) Anion Gap 7 (6-14) Blood Urea Nitrogen 12 mg/dL (7-20) Creatinine 0.6 mg/dL (0.6-1.0) Estimated GFR (Cockcroft-Gault) 98.5 Glucose Level 114 mg/dL (70-99) Calcium Level 8.9 mg/dL (8.5-10.1) NANETTE HSIEH MD Feb 05, 2017 10:07
[2017-02-05 10:55] VITALS: BP 165/60
[2017-02-05] MEDS: ANTI-COAG MONITOR BY PHARMACY. MC PRN (12:09)
[2017-02-05] MEDS ORDERED: REGADENOSON 0.4 MG/5 ML DISP.SYRIN. IV ONE (13:00)
--- NOTE | 2017-02-05 14:11 | PDOC ---
CARDIO Progress Notes Date and Time Date of Service 02/05/2017 Time of Evaluation 1230 Subjective Subjective: No Chest Pain, No shortness of breath, No Palpitations Vitals Vitals Vital Signs Date Time Temp Pulse Resp B/P (MAP) Pulse Ox O2 Delivery O2 Flow Rate FiO2 02/05/17 10:55 97.8 63 21 165/60 (95) 93 Room Air 97.8 Weight Weight [ ] Laboratory Labs Laboratory Tests Test 02/05/17 05:00 White Blood Count 9.0 x10^3/uL (4.0-11.0) Red Blood Count 3.41 x10^6/uL (3.50-5.40) Hemoglobin 8.9 g/dL (12.0-15.5) Hematocrit 27.6 % (36.0-47.0) Mean Corpuscular Volume 81 fL (79-100) Mean Corpuscular Hemoglobin 26 pg (25-35) Mean Corpuscular Hemoglobin Concent 32 g/dL (31-37) Red Cell Distribution Width 17.2 % (11.5-14.5) Platelet Count 240 x10^3/uL (140-400) Sodium Level 144 mmol/L (136-145) Potassium Level 3.1 mmol/L (3.5-5.1) Chloride Level 107 mmol/L (98-107) Carbon Dioxide Level 30 mmol/L (21-32) Anion Gap 7 (6-14) Blood Urea Nitrogen 12 mg/dL (7-20) Creatinine 0.6 mg/dL (0.6-1.0) Estimated GFR (Cockcroft-Gault) 98.5 Glucose Level 114 mg/dL (70-99) Calcium Level 8.9 mg/dL (8.5-10.1) Physical Exam HEENT: Neck Supple W Full Motion Chest: Symmetric LUNGS: Clear to Auscultation Heart: S1S2, RRR (SR) Abdomen: Soft N/T Extremities: No Calf Tenderness Neurology: alert, oriented, follow commands Assessment Assessment 1. CP: Likely bronchospasm and anxiety 2. PAFIB: SR 3. HTN; labile overnight 4. HLP 5. Obesity: BMI 43 6. Anxiety 7. Asthma exacerbation: better but still has some mild MORALES. per PCP. Recommendations 1. Continue AFIB regimen- xarelto, cardizem and dig and multaq. 2. Losartan has been added. Replace K 3. Continue with secondary prevention 4. MPI completion today, if unremarkable f/u 4 weeks. VALERIE HIDALGO ORACLE MANAGER Feb 05, 2017 14:11
[2017-02-05 15:00] VITALS: BP 155/62
[2017-02-05] MEDS ORDERED: RIVAROXABAN 10 MG TABLET. PO SCH (17:00)
[2017-02-05] MEDS: DRONEDARONE HCL 400 MG TABLET PO SCH (17:34)
[2017-02-05 19:05] VITALS: BP 143/56
[2017-02-05] MEDS: ATORVASTATIN CALCIUM 20 MG TABLET PO SCH (20:58)
[2017-02-05] MEDS: traZODone 50 MG TABLET. PO SCH (20:58)
[2017-02-05] MEDS: DIGOXIN 125 MCG TABLET. PO SCH (20:58)
[2017-02-05 23:10] VITALS: BP 144/63
[2017-02-06 03:25] VITALS: BP 152/65
[2017-02-06 06:29] LABS: CREATININE 0.7 mg/dL (0.6-1.0); GFR 82.5; POTASSIUM 4.3 mmol/L (3.5-5.1)
[2017-02-06 07:00] VITALS: BP 139/59
[2017-02-06] MEDS: ALBUTEROL SULFATE 2.5 MG/3 ML NEBU. NEB SCH ×3 (07:28→15:12)
[2017-02-06] MEDS: BUDESONIDE 0.5 MG/2 ML NEBU. NEB SCH (07:28)
[2017-02-06] MEDS: TRIAMTERENE/HCTZ 37.5/25MG TABLET. PO SCH (09:00)
[2017-02-06] MEDS ORDERED: LOSARTAN POTASSIUM 50 MG TABLET. PO SCH (09:00)
[2017-02-06] MEDS: ASPIRIN ENTERIC COATED 81 MG TABLET.DR. PO SCH (09:23)
[2017-02-06] MEDS: DULoxetine HCL 30 MG CAPSULE.DR PO SCH (09:24)
[2017-02-06] MEDS: CHOLECALCIFEROL (VITAMIN D3) 1,000 UNIT TABLET PO SCH (09:24)
[2017-02-06] MEDS: busPIRone 10 MG TABLET. PO SCH (09:24)
[2017-02-06] MEDS: PANTOPRAZOLE 40 MG TABLET.DR. PO SCH (09:24)
--- NOTE | 2017-02-06 10:14 | PDOC ---
SUBJECTIVE Subjective no further cp or palpitation OBJECTIVE Vital Signs Vital Signs Date Time Temp Pulse Resp B/P (MAP) Pulse Ox O2 Delivery O2 Flow Rate FiO2 02/06/17 09:25 75 139/59 02/06/17 09:24 75 139/59 02/06/17 07:28 91 Room Air 02/06/17 07:00 98.7 75 17 139/59 (85) 96 Room Air 98.7 02/06/17 03:25 97.8 70 18 152/65 (94) 93 Room Air 97.8 02/05/17 23:10 98.3 70 18 144/63 (90) 93 Room Air 98.3 02/05/17 20:58 76 143/56 02/05/17 20:10 Room Air 02/05/17 19:17 Room Air 02/05/17 19:05 98.0 73 18 143/56 (85) 92 Room Air 98.0 02/05/17 17:34 75 143/46 02/05/17 16:03 Room Air 02/05/17 15:48 72 155/62 02/05/17 15:00 98.5 65 20 155/62 (93) 94 Room Air 98.5 02/05/17 10:55 97.8 63 21 165/60 (95) 93 Room Air 97.8 I & O Intake and Output 02/07/17 07:00 Output Total 150 ml Balance -150 ml Output Urine Total 150 ml PHYSICAL EXAM Physical Exam lungs clear heart RRR abd soft ext no edema ASSESSMENT/PLAN Assessment/Plan home if MPI stress test negative Problems: COMMENT Lab Laboratory Tests Test 02/06/17 05:50 Sodium Level 140 mmol/L (136-145) Potassium Level 4.3 mmol/L (3.5-5.1) Chloride Level 105 mmol/L (98-107) Carbon Dioxide Level 31 mmol/L (21-32) Anion Gap 4 (6-14) Blood Urea Nitrogen 12 mg/dL (7-20) Creatinine 0.7 mg/dL (0.6-1.0) Estimated GFR (Cockcroft-Gault) 82.5 Glucose Level 129 mg/dL (70-99) Calcium Level 9.0 mg/dL (8.5-10.1) Creatine Kinase 75 U/L (26-192) NANETTE HSIEH MD Feb 06, 2017 10:14
[2017-02-06 10:45] VITALS: BP 134/56
--- NOTE | 2017-02-06 13:09 | RAD ---
APPROVED REPORT Test Type: Pharmacological Stress Nurse/Tech: sasha wilkins Test Indications: CHEST PAIN Cardiac History: HTN, SEE EHR Medications: SEE EHR Medical History: NONE STATED, SEE EHR Resting ECG: SR Resting Heart Rate: 67 bpm Resting Blood Pressure: 158/71mmHg Pretest Chest Pain: No chest pain Nurse/Tech Notes NO RESIRATORY DISTRESS, NO CHEST PAIN STATED. Consent: The procedure was explained to the patient in lay terms. Informed consent was witnessed. [place] eout was entered into [employer]. History and Stress Test performed by JONNIE Jeffries, REBEKA (Vince) (N) Pharm. Details Pharmacologic stress testing was performed using 0.4mg per 5ml of regadenoson given intravenously ove r 7-10 seconds. Stress Symptoms NONE STATED. POST EXERCISE Reason for Termination: Infusion complete Max HR: 86 bpm Max Blood Pressure: 158/71mmHg Chest Pain: No. Arrhythmia: No. ST Change: No. Imaging Protocol IMAGE PROTOCOL: Stress Tc-99m/rest Tc-99m 2 days Rest: Stress: Viability: Radiopharm.Tc99m Sestamibi Fuwk27pHz Duration 10min. [facility] [place] 02/05/2017 Stress Admin Site: IV - Left AntecubitalAdministrator: JONNIE Jeffries, REBEKA (R)(N) STRESS DATA End Diast. Vol.144.5mlAv. Heart Rate70.0bpm End Syst. Vol.36.0mlCO Index BSA0.0L/min Myocardial Mpqa405.5gEject. Jxpwteje43.5% Stress Rates Pk. Fill Rate3.25EDV/secLVtime Pk. Fill 194.68msec Pk. Empty Rate3.91ESV/secLVtime Pk. Ayqtq338.96msec 04/10 Pk. Fill1.11EDV/sec Stress Scores Regional WT0.00Summed WT4.00 Regional WM0.00Summed WM0.00 LV Perf. Quant 17 Seg. SSS0.00 17 Seg. SRS1.00 17 Seg. SDS0.00 Stress Defect Extent (% LAD)0.00Rest Defect Extent (% LAD)12.50Rev. Defect Extent (% LAD)0.00 Stress Defect Extent (% LCX) 0.00Rest Defect Extent (% LCX)0.00Rev. Defect Extent (% LCX)0.00 Stress Defect Extent (% RCA)0.00Rest Defect Extent (% RCA)0.00Rev. Defect Extent (% RCA)0.00 Stress Defect Extent (% SUNDAY)0.00Rest Defect Extent (% SUNDAY)5.20Rev. Defect Extent (% SUNDAY)0.00 Conclusion 1. No EKG evidence of stress induced ischemia. 2. Nuclear images show no reversible ischemia or infact. 3. Normal LV systolic function with ejection fraction of greater than 70%. 4. Low risk Lexiscan nuclear stress test.
--- NOTE | 2017-02-06 13:10 | PDOC3 ---
Discharge Summary* Date of Admission: Feb 03, 2017 Date of Discharge: Feb 06, 2017 Admitting Diagnosis Problems Medical Problems: (1) Unstable angina Status: Acute Problems: Final Diagnosis 1- Palpitation was in [place] then A Fib with RVR due to anxiety 2-hx paroxysmal A Fib and CAD 3- chest pain due to anxiety , MPI neg 4-HTN increased losartan to 100 mg and continue maxide 5-GERD 6-obesity 7- depression and anxiety added Buspar Problems Medical Problems: (1) Unstable angina Status: Acute CONSULTS cardiology Procedures CXR, MPI stress test Brief Hospital Course Ms. Rosales is a 72 old [sex] who presented with [ ] Disposition/Orders: D/C to Home CONDITION AT DISCHARGE: Improved Diet: Cardiac, Consistent Carbohydrate Scheduled Aspirin (Aspir 81), 81 MG PO DAILY, (Reported) Atorvastatin Calcium (Atorvastatin Calcium), 20 MG PO HS, (Reported) Cholecalciferol (Vitamin D3) (Vitamin D3), 2,000 UNIT PO DAILY, (Reported) Digoxin (Digoxin), 125 MCG PO HS, (Reported) Diltiazem Hcl (Diltiazem 24HR Cd), 360 MG PO DAILY, (Reported) Dronedarone Hcl (Multaq), 1 TAB PO DAILYWSUP, (Reported) Duloxetine Hcl (Cymbalta), 1 CAP PO DAILY, (Reported) Fluticasone/Vilanterol (Breo Ellipta 100-25 Mcg Inh), 1 PUFF IH DAILY, (Reported ) Losartan Potassium (Losartan Potassium), 50 MG PO DAILY, (Reported) Omeprazole (Omeprazole), 20 MG PO DAILY, (Reported) Rivaroxaban (Xarelto), 20 MG PO DAILY, (Reported) Trazodone Hcl (Trazodone Hcl), 50 MG PO HS, (Reported) Triamterene/Hydrochlorothiazid (Triamterene-Hctz 37.5-25 Mg Tb), 1 TAB PO DAILY, (Reported) Scheduled PRN Albuterol Sulfate (Proair Hfa Inhaler), 2 PUFF INH PRN Q4HRS PRN for SEE COMMENTS, (Reported) Alprazolam (Alprazolam), 0.25 MG PO PRN Q6HRS PRN for ANXIETY / AGITATION, ( Reported) Hydrocodone Bit/Acetaminophen (Hydrocodone-Apap 7.5-325 ), 1 TAB PO PRN Q6HRS PRN for PAIN, (Reported) Meclizine Hcl (Meclizine Hcl), 1 TAB PO TID PRN for DIZZINESS, (Reported) FOLLOW UP APPOINTMENT: Cardiology 1 week [place] 1 week added buspar for anxiety, increased losartan to 100, take maxide daily Time Spent Total time spent with patient [] minutes for coordination of care, counseling, and education. NANETTE HSIEH MD Feb 06, 2017 13:10
[2017-02-06] MEDS ORDERED: LOSA25TA4 PO (13:13)
[2017-02-06] MEDS ORDERED: BUSP10TA PO (13:13)
[2017-02-06 15:00] VITALS: BP 130/55
--- NOTE | 2017-02-06 17:43 | PDOC ---
PROGRESS NOTES Subjective Subjective Patient seen and examined. The patient looks and feels better today. She denies any chest pain. Objective Objective Vital Signs Date Time Temp Pulse Resp B/P (MAP) Pulse Ox O2 Delivery O2 Flow Rate FiO2 02/06/17 15:13 Room Air 02/06/17 15:00 98.9 67 18 130/55 (80) 94 98.9 Intake and Output 02/07/17 07:00 Output Total 150 ml Balance -150 ml Output Urine Total 150 ml Physical Exam Abdomen: Normal bowel sounds Heart: Regular rate Extremities: No edema General: No acute distress HEENT: Atraumatic Lungs: Clear to auscultation Assessment Assessment Problems Medical Problems: (1) Unstable angina Status: Acute 1. CP: Likely bronchospasm and anxiety, no acute infarction. Chest pain resolved. Nuclear stress test is normal with no evidence of ischemia. Normal LV function. Continue medical treatment. 2. PAFIB: SR 3. HTN; continue medications. 4. HLP 5. Obesity: BMI 43 6. Anxiety Comment Review of Relevant I have reviewed the following items joann (where applicable) has been applied. Labs Laboratory Tests Test 02/05/17 05:00 02/06/17 05:50 White Blood Count 9.0 x10^3/uL (4.0-11.0) Red Blood Count 3.41 x10^6/uL (3.50-5.40) Hemoglobin 8.9 g/dL (12.0-15.5) Hematocrit 27.6 % (36.0-47.0) Mean Corpuscular Volume 81 fL (79-100) Mean Corpuscular Hemoglobin 26 pg (25-35) Mean Corpuscular Hemoglobin Concent 32 g/dL (31-37) Red Cell Distribution Width 17.2 % (11.5-14.5) Platelet Count 240 x10^3/uL (140-400) Sodium Level 144 mmol/L (136-145) 140 mmol/L (136-145) Potassium Level 3.1 mmol/L (3.5-5.1) 4.3 mmol/L (3.5-5.1) Chloride Level 107 mmol/L (98-107) 105 mmol/L (98-107) Carbon Dioxide Level 30 mmol/L (21-32) 31 mmol/L (21-32) Anion Gap 7 (6-14) 4 (6-14) Blood Urea Nitrogen 12 mg/dL (7-20) 12 mg/dL (7-20) Creatinine 0.6 mg/dL (0.6-1.0) 0.7 mg/dL (0.6-1.0) Estimated GFR (Cockcroft-Gault) 98.5 82.5 Glucose Level 114 mg/dL (70-99) 129 mg/dL (70-99) Calcium Level 8.9 mg/dL (8.5-10.1) 9.0 mg/dL (8.5-10.1) Creatine Kinase 75 U/L (26-192) Laboratory Tests Test 02/06/17 05:50 Sodium Level 140 mmol/L (136-145) Potassium Level 4.3 mmol/L (3.5-5.1) Chloride Level 105 mmol/L (98-107) Carbon Dioxide Level 31 mmol/L (21-32) Anion Gap 4 (6-14) Blood Urea Nitrogen 12 mg/dL (7-20) Creatinine 0.7 mg/dL (0.6-1.0) Estimated GFR (Cockcroft-Gault) 82.5 Glucose Level 129 mg/dL (70-99) Calcium Level 9.0 mg/dL (8.5-10.1) Creatine Kinase 75 U/L (26-192) Medications Current Medications Aspirin (Children'S Aspirin) 324 mg 1X ONCE PO Last administered on 17:48; Start 02/03/17 at 17:30; Stop 02/03/17 at 17:40; Status DC Nitroglycerin (Nitrostat) 0.4 mg PRN Q5MIN PRN SL CP RATING > 1/10 Last administered on 02/03/17 18:51; Start 02/03/17 at 17:30; Stop 02/04/17 at 17 :29; Status DC Nitroglycerin/ Dextrose 250 ml @ 3 mls/hr 1X ONCE IV Last administered on 19:00; Start 02/03/17 at 17:30; Stop 02/06/17 at 16:08; Status DC Alprazolam (Xanax) 0.25 mg PRN Q6HRS PRN PO ANXIETY / AGITATION; Start at 20:30; Stop 02/06/17 at 16:08; Status DC Aspirin (Ecotrin) 81 mg DAILY PO Last administered on 02/06/17 09:23; Start 02/04/17 at 09:00; Stop 02/06/17 at 16:08; Status DC Atorvastatin Calcium (Lipitor) 20 mg HS PO Last administered on 02/05/17 20: 58; Start 02/03/17 at 21:00; Stop 02/06/17 at 16:08; Status DC Vitamin D (Vitamin D3) 2,000 unit DAILY PO Last administered on 02/06/17 09:24 ; Start 02/04/17 at 09:00; Stop 02/06/17 at 16:08; Status DC Digoxin (Lanoxin) 125 mcg HS PO Last administered on 02/05/17 20:58; Start 02/03/17 at 21:00; Stop 02/06/17 at 16:08; Status DC Diltiazem HCl (Cardizem 24hr Cd) 360 mg DAILY PO Last administered on 09:25; Start 02/04/17 at 09:00; Stop 02/06/17 at 16:08; Status DC Dronedarone (Multaq) 400 mg DAILYWSUP PO Last administered on 02/05/17 17:34 ; Start 02/04/17 at 17:00; Stop 02/06/17 at 16:08; Status DC Acetaminophen/ Hydrocodone Bitart (Lortab 7.5/325) 1 tab PRN Q6HRS PRN PO PAIN ; Start 02/03/17 at 20:30; Stop 02/06/17 at 16:08; Status DC Losartan Potassium (Cozaar) 50 mg DAILY PO Last administered on 02/05/17 08: 41; Start 02/04/17 at 09:00; Stop 02/05/17 at 09:56; Status DC Trazodone HCl (Desyrel) 50 mg HS PO Last administered on 02/05/17 20:58; Start 02/03/17 at 21:00; Stop 02/06/17 at 16:08; Status DC Triamterene/HCTZ (Maxzide 37.5/ 25mg) 1 tab DAILY PO Last administered on 09:00; Start 02/04/17 at 09:00; Stop 02/06/17 at 16:08; Status DC Non-Formulary Medication 2 puff PRN Q4HRS PRN INH SEE COMMENTS; Start at 20:30; Status UNV Duloxetine HCl (Cymbalta) 60 mg DAILY PO Last administered on 02/06/17 09:24; Start 02/04/17 at 09:00; Stop 02/06/17 at 16:08; Status DC Non-Formulary Medication 1 puff DAILY IH ; Start 02/04/17 at 09:00; Status UNV Meclizine HCl (Antivert) 25 mg PRN TID PRN PO DIZZINESS; Start 02/03/17 at 21: 00; Stop 02/06/17 at 16:08; Status DC Pantoprazole Sodium (Protonix) 40 mg DAILYAC PO Last administered on 02/06/17 09:24; Start 02/04/17 at 07:30; Stop 02/06/17 at 16:08; Status DC Rivaroxaban (Xarelto) 20 mg DAILY PO Last administered on 02/04/17 08:54; Start 02/04/17 at 08:00; Stop 02/05/17 at 11:33; Status DC Albuterol Sulfate (Ventolin Neb Soln) 2.5 mg PRN Q4HRS PRN NEB SHORTNESS OF BREATH; Start 02/03/17 at 21:00; Stop 02/06/17 at 16:08; Status DC Budesonide (Pulmicort) 0.5 mg RTBID NEB Last administered on 02/06/17 07:28; Start 02/04/17 at 08:00; Stop 02/06/17 at 16:08; Status DC Albuterol Sulfate (Ventolin Neb Soln) 2.5 mg RTQID NEB Last administered on 15:12; Start 02/04/17 at 08:00; Stop 02/06/17 at 16:08; Status DC Info (Anti-Coagulation Monitoring By Pharmacy) 1 each PRN DAILY PRN MC SEE COMMENTS Last administered on 02/05/17 12:09; Start 02/04/17 at 10:30; Stop 02/06/17 at 16:08; Status DC Enoxaparin Sodium (Lovenox 40mg Syringe) 40 mg Q24H SQ ; Start 02/04/17 at 13: 45; Status UNV Buspirone HCl (Buspar) 10 mg BID PO Last administered on 02/06/17 09:24; Start 02/04/17 at 14:00; Stop 02/06/17 at 16:08; Status DC Potassium Chloride (Klor-Con) 40 meq 1X ONCE PO Last administered on 10:07; Start 02/05/17 at 09:15; Stop 02/05/17 at 09:16; Status DC Losartan Potassium (Cozaar) 100 mg DAILY PO Last administered on 02/06/17 09: 24; Start 02/06/17 at 09:00; Stop 02/06/17 at 16:08; Status DC Rivaroxaban (Xarelto) 20 mg DAILYWSUP PO Last administered on 02/05/17 17:31 ; Start 02/05/17 at 17:00; Stop 02/06/17 at 16:08; Status DC Regadenoson (Lexiscan) 0.4 mg 1X ONCE IV Last administered on 02/05/17 15:01 ; Start 02/05/17 at 13:00; Stop 02/05/17 at 13:02; Status DC Active Scripts Active Buspirone Hcl 10 Mg Tablet 10 Mg PO BID 30 Days Losartan Potassium 25 Mg Tablet 100 Mg PO DAILY 30 Days Reported Multaq (Dronedarone Hcl) 400 Mg Tablet 1 Tab PO DAILYWSUP Digoxin 125 Mcg Tablet 125 Mcg PO HS Diltiazem 24HR Cd (Diltiazem Hcl) 180 Mg Cap.er.24h 360 Mg PO DAILY Meclizine Hcl 25 Mg Tablet 1 Tab PO TID PRN Xarelto (Rivaroxaban) 20 Mg Tablet 20 Mg PO DAILY Breo Ellipta 100-25 Mcg Inh (Fluticasone/Vilanterol) 1 Each Aer.pow.ba 1 Puff IH DAILY Cymbalta (Duloxetine Hcl) 60 Mg Capsule.dr 1 Cap PO DAILY Triamterene-Hctz 37.5-25 Mg Tb (Triamterene/Hydrochlorothiazid) 1 Each Tablet 1 Tab PO DAILY Alprazolam 0.25 Mg Tablet 0.25 Mg PO PRN Q6HRS PRN Hydrocodone-Apap 7.5-325 (Hydrocodone Bit/Acetaminophen) 1 Each Tablet 1 Tab PO PRN Q6HRS PRN Vitamin D3 (Cholecalciferol (Vitamin D3)) 1,000 Unit Tablet 2,000 Unit PO DAILY Proair Hfa Inhaler (Albuterol Sulfate) 8.5 Gm Hfa.aer.ad 2 Puff INH PRN Q4HRS PRN Atorvastatin Calcium 20 Mg Tablet 20 Mg PO HS Trazodone Hcl 50 Mg Tablet 50 Mg PO HS Omeprazole 20 Mg Tablet.dr 20 Mg PO DAILY Aspir 81 (Aspirin) 81 Mg Tablet.dr 81 Mg PO DAILY Vitals/I & O Vital Sign - Last 24 Hours 02/05/17 02/05/17 02/05/17 02/05/17 19:05 19:17 20:10 20:58 Temp 98.0 98.0 Pulse 73 76 Resp 18 B/P (MAP) 143/56 (85) 143/56 Pulse Ox 92 O2 Delivery Room Air Room Air Room Air 02/05/17 02/06/17 02/06/17 02/06/17 23:10 03:25 07:00 07:28 Temp 98.3 97.8 98.7 98.3 97.8 98.7 Pulse 70 70 75 Resp 17 B/P (MAP) 144/63 (90) 152/65 (94) 139/59 (85) Pulse Ox 93 93 96 91 O2 Delivery Room Air Room Air Room Air Room Air 02/06/17 02/06/17 02/06/17 02/06/17 08:00 09:24 09:25 10:45 Temp 98.8 98.8 Pulse 75 75 66 Resp 18 B/P (MAP) 139/59 139/59 134/56 (82) Pulse Ox 96 O2 Delivery Room Air Room Air 02/06/17 02/06/17 15:00 15:13 Temp 98.9 98.9 Pulse 67 Resp 18 B/P (MAP) 130/55 (80) Pulse Ox 94 O2 Delivery Room Air Room Air Intake and Output 02/06/17 02/06/17 02/07/17 15:00 23:00 07:00 Output Total 150 ml Balance -150 ml MYA CANTRELL MD Feb 06, 2017 17:43
== END 2017-02-06 16:07 | disposition home or self-care (01) | DRG 880 ==
LOC: ER 17:16 → 2 SOUTH 18:40
PROVIDERS: ADMIT Internal Medicine; ATTEND Internal Medicine
DX: F41.9 Anxiety disorder, unspecified (principal); I48.0 Paroxysmal atrial fibrillation; I25.110 Atherosclerotic heart disease of native coronary artery with unstable angina pectoris; J45.901 Unspecified asthma with (acute) exacerbation; M06.9 Rheumatoid arthritis, unspecified; Z68.41 Body mass index [BMI] 40.0-44.9, adult; R00.2 Palpitations; R07.89 Other chest pain; K21.9 Gastro-esophageal reflux disease without esophagitis; M19.90 Unspecified osteoarthritis, unspecified site; E66.9 Obesity, unspecified; E78.00 Pure hypercholesterolemia, unspecified; E78.5 Hyperlipidemia, unspecified; F32.9 Major depressive disorder, single episode, unspecified; I10 Essential (primary) hypertension; K44.9 Diaphragmatic hernia without obstruction or gangrene; M81.0 Age-related osteoporosis without current pathological fracture; Z90.49 Acquired absence of other specified parts of digestive tract; Z90.710 Acquired absence of both cervix and uterus; Z88.2 Allergy status to sulfonamides; Z88.8 Allergy status to other drugs, medicaments and biological substances; Z91.013 Allergy to seafood; Z71.89 Other specified counseling; Z82.49 Family history of ischemic heart disease and other diseases of the circulatory system
CPT/HCPCS: 36415; 71010; 78452; 80048; 80053; 80162; 82550; 83735; 84443; 84484; 85025; 85027; 93005; 93017; 94250; 94640; 94760; 96365; 96374; 96375; 96376; A9500; J2785; J3490; J7613; J7626; 99285-25

== ENCOUNTER → 2017-06-04 | Outpatient (CLI) | payer MEDICARE ==
[2017-06-04] MEDS: IOHEXOL 240 MG/ML 50ML VIAL. PO (09:05)
[2017-06-04] MEDS: IOHEXOL 300 MG/ML 100ML VIAL. IV (09:38)
[2017-06-04 11:00] LABS: ISTAT CREATININE 0.6 mg/dL (0.6-1.1)
== END | disposition home or self-care (01) ==
LOC: KCIC CT 08:37
DX: D64.9 Anemia, unspecified (principal); N28.89 Other specified disorders of kidney and ureter; M48.061 Spinal stenosis, lumbar region without neurogenic claudication; M47.894 Other spondylosis, thoracic region; I70.0 Atherosclerosis of aorta; I51.7 Cardiomegaly; R16.2 Hepatomegaly with splenomegaly, not elsewhere classified
CPT/HCPCS: 74177; 82565; Q9966; Q9967

== ENCOUNTER → 2017-06-19 | Day surgery (SDC) | payer MEDICARE ==
[~2017-06-19] MED LIST changes: -ALPR0.254 PO; -ASPI-482 PO; -ASPI-630 PO; -ATOR10TA60 PO; -ATOR20TA58 PO; -BREO; -BREO ELLIPTA; -BREO ELLIPTA 11 EACH IH; -BUSP15TA PO; -CHOL10003 PO; -CYAN10005 PO; -DIGO125T PO; -DILT180C29 PO; -DILT180C64 PO; -DRON400T PO; -DULO20CA PO; -DULO60CA6 PO; -FLUO40CA2 PO; -HYDR-2762 PO; -LEVO500T59 PO; +LIDOCAINE 1% PF 2 ML VIAL. ID; +LIDOCAINE 2% 100 MG/5 ML SYRINGE.; -LISI-334 PO; -LISI10TA2 PO; -LOSA25TA4 PO; -MECL25TA3 PO; -MELO15TA23 PO; -METO-269 PO; -METO25TA2 PO; +MORPHINE SULFATE 4 MG/ML DISP.SYRIN. IV; -OMEP20CA9 PO; -OMEP20TA8 PO; +ONDANSETRON PF 4 MG/2 ML VIAL. IV; -PROAIR HFA8.5 GM INH; +PROCHLORPERAZINE 10 MG/2 ML VIAL. IV; +PROPOFOL 40 ML IV; -RIVA20TA2 PO; -TRAZ50TA15 PO; -TRIA1CAP3 PO; -TRIA1TAB3 PO; +fentaNYL PF VIAL 100 MCG/2 ML VIAL IV
[2017-06-19] MEDS: IV RINGERS,LACTATED 1000ML 1,000 ML IV (07:33)
== END ==
LOC: ENDOS 06:16
DX: K29.50 Unspecified chronic gastritis without bleeding (principal); D50.8 Other iron deficiency anemias; K21.9 Gastro-esophageal reflux disease without esophagitis; Z79.899 Other long term (current) drug therapy; Z91.041 Radiographic dye allergy status; Z91.013 Allergy to seafood
CPT/HCPCS: 43235; J2704

== ENCOUNTER 2018-05-23 12:03 | Emergency (ER) | payer MEDICARE ==
[~2018-05-23] VITALS: Ht 152.4 cm; Wt 105.2 kg
[~2018-05-23 12:03] MED LIST changes: +ALBU2.5V8 INH; +ALPR0.254 PO; +ASPI-482 PO; +ASPI-630 PO; +ATOR10TA60 PO; +ATOR20TA58 PO; +BREO; +BREO ELLIPTA; +BREO ELLIPTA 11 EACH IH; +BUSP10TA PO; +BUSP15TA PO; +CHOL10003 PO; +CYAN10005 PO; +DIGO125T PO; +DILT180C29 PO; +DILT180C64 PO; +DRON400T PO; +DULO20CA PO; +DULO60CA6 PO; +FERR324T5 PO; +FLUO40CA2 PO; +HYDR-2765 PO; +LEVO500T59 PO; -LIDOCAINE 1% PF 2 ML VIAL. ID; -LIDOCAINE 2% 100 MG/5 ML SYRINGE.; +LISI-334 PO; +LISI10TA2 PO; +LOSA25TA54 PO; +MECL25TA3 PO; +MELO15TA23 PO; +METO-269 PO; +METO25TA2 PO; -MORPHINE SULFATE 4 MG/ML DISP.SYRIN. IV; +OMEP20CA9 PO; +OMEP20TA8 PO; +OMEP40CA5 PO; -ONDANSETRON PF 4 MG/2 ML VIAL. IV; -PROCHLORPERAZINE 10 MG/2 ML VIAL. IV; -PROPOFOL 40 ML IV; +RIVA20TA2 PO; +TRAZ-85 PO; +TRIA1CAP3 PO; +TRIA1TAB3 PO; -fentaNYL PF VIAL 100 MCG/2 ML VIAL IV
[2018-05-23 14:20] LABS: BASO # 0.1 x10^3/uL (0.0-0.2); BASO % 1 % (0-3); EOS % 1 % (0-3); HEMATOCRIT 37.5 % (36.0-47.0); HEMOGLOBIN 12.3 g/dL (12.0-15.5); LYMPH # 1.2 x10^3/uL (1.0-4.8); LYMPH % 12 % (24-48); MEAN CORPUSCULAR HEMOGLOBIN 30 pg (25-35); MEAN CORPUSCULAR HGB CONC 33 g/dL (31-37); MEAN CORPUSCULAR VOLUME 92 fL (79-100); MONO # 0.6 x10^3/uL (0.0-1.1); MONO % 6 % (0-9); NEUT % 81 % (31-73); PLATELET COUNT 275 x10^3/uL (140-400); RED BLOOD COUNT 4.09 x10^6/uL (3.50-5.40); RED CELL DISTRIBUTION WIDTH 14.9 % (11.5-14.5); WHITE BLOOD COUNT 9.8 x10^3/uL (4.0-11.0)
[2018-05-23 14:31] LABS: PROTHROMBIN TIME PATIENT 12.8 SEC (11.7-14.0)
--- NOTE | 2018-05-23 14:31 | RAD ---
Portable chest, 05/23/2018: HISTORY: Left arm pain Comparison is made to a study from 02/03/2017. The heart is at the upper limits of normal in size. The palmar vascularity is normal. No pulmonary infiltrate is seen. There is no evidence of pleural fluid. IMPRESSION: No acute cardiopulmonary abnormality is detected. Electronically signed by: Lane Jones MD (05/23/2018 2:28 PM) [facility]
[2018-05-23 14:35] LABS: CALCIUM 9.5 mg/dL (8.5-10.1); CREATININE 0.8 mg/dL (0.6-1.0); GFR 70.5; POTASSIUM 4.5 mmol/L (3.5-5.1)
[2018-05-23 14:37] LABS: ALBUMIN 3.3 g/dL (3.4-5.0); DIRECT BILIRUBIN 0.1 mg/dL (0.0-0.2); TOTAL BILIRUBIN 0.4 mg/dL (0.2-1.0)
[2018-05-23] MEDS ORDERED: HYDROmorphone 2 MG/ML VIAL IVP PRN (15:30)
--- NOTE | 2018-05-23 15:55 | RAD ---
EXAM: Left wrist, 3 views; left forearm, 2 views. HISTORY: Pain. COMPARISON: None. FINDINGS: 3 views of the left wrist and 2 views the left forearm are obtained. There is deformity of the left radial head and neck. The absence of an elbow effusion favors a chronic healed fracture. There is mild spurring of the first and third metacarpal heads. There is no lytic or sclerotic osseous lesion. IMPRESSION: 1. Suspected healed radial head and neck fracture. 2. No acute osseous finding. Electronically signed by: Jacquelin Diaz MD (05/23/2018 3:52 PM) [id number]
[2018-05-23 17:00] VITALS: BP 160/75
--- NOTE | 2018-05-23 17:09 | PHYS DOC ---
Past Medical History Past Medical History: A-Fib, Arthritis, Asthma, CAD, Depression, High Cholesterol, Hypertension, Other Additional Past Medical Histor: Osteoporosis Past Surgical History: Appendectomy, Cholecystectomy, Hysterectomy, Tonsillectomy, Other Additional Past Surgical Histo: R Arm w/ hardware,CARDIOVERSION Alcohol Use: Heavy Drug Use: None Adult General Chief Complaint Chief Complaint: UPPER EXTREMITY PAIN HPI HPI 73-year-old female presenting to the emergency department today with left arm pain in the wrist. Her pain is been present for about 48 hours. The pain is worse today and left wrist. It is worse when she moves her wrist. She denies using any recent injury to the wrist. She was using a heavy vacuum 2 or 3 days ago. She denies any fevers chills. Pain in the left wrist is sharp moderate and nonradiating. Review of systems is negative for chest pain shortness of breath abdominal pain nausea vomiting fevers or chills. All other review of systems is negative unless otherwise noted in history of present illness. ED course: 73-year-old female presenting to the emergency department today with left wrist pain. Patient took a pain pill prior to arrival which mildly improved her pain. Vitals unremarkable other than chronic hypertension. X-ray of the left wrist shows a old radial head fracture. There is a mild deformity in the distal radius and the patient is quite tender to touch there. I will put the patient in a wrist splint to have her follow up with her primary care physician for repeat x-ray. Otherwise her EKG is reviewed by myself which shows probably sinus rhythm with a regular rhythm. ST segments are congruent. Not suggestive ACS. There is artifact present. Otherwise blood work is unremarkable.The patient has been examined and was not found to have an emergency medical condition. The patient was then discharged home in stable condition to follow up with their primary care physician over the next 1-2 days. They were to return if their symptoms worsened or if they were concerned for any reason. They were also instructed to return to the emergency department if they were unable to get the recommended and appropriate follow- up. [id number] discharge instructions and return precautions were given. Patient's questions were answered to their satisfaction. Patient is comfortable with plan. Review of Systems Review of Systems SEE ABOVE. Current Medications Current Medications Current Medications Medications (Trade) Dose Ordered Sig/Dev Start Time Stop Time Status Last Admin Dose Admin Hydromorphone HCl (Dilaudid) 0.5 mg PRN Q4HRS PRN 05/23/18 15:30 05/23/18 15:36 0.5 MG Allergies Allergies Allergies Coded Allergies Type Severity Reaction Last Updated Verified iodine Allergy Severe Anaphylaxis 06/19/17 Yes iodine Allergy Severe anaphylaxis, throat swelling and difficulty breathing No shellfish derived Allergy Severe Anaphylaxis 06/19/17 Yes Sulfa (Sulfonamide Antibiotics) Allergy Intermediate Swelling, pain in neck Yes Physical Exam Physical Exam SEE ABOVE Constitutional: Well developed, well nourished, no acute distress, non-toxic appearance. [] HENT: Normocephalic, atraumatic, bilateral external ears normal, oropharynx moist, no oral exudates, nose normal. [] Eyes: PERRLA, EOMI, conjunctiva normal, no discharge. [] Neck: Normal range of motion, no tenderness, supple, no stridor. [] Cardiovascular:Heart rate regular rhythm, no murmur [] Lungs & Thorax: Bilateral breath sounds clear to auscultation [] Abdomen: Bowel sounds normal, soft, no tenderness, no masses, no pulsatile masses. [] Skin: Warm, dry, no erythema, no rash. [] Back: No tenderness, no CVA tenderness. [] Extremities: The patient is tender in the left wrist. She describes a tingling sensation in the hand. Palpable pulse in the radial artery. 2 second cap refill. Normal motor function of the left hand. The elbow is nontender. Shoulders nontender. The remainder the extremities are nontender with normal range of motion at the joints. Neurologic: Alert and oriented X 3, normal motor function, normal sensory function, no focal deficits noted. [] Psychologic: Affect normal, judgement normal, mood normal. [] Current Patient Data Vital Signs Vital Signs Date Time Temp Pulse Resp B/P (MAP) Pulse Ox O2 Delivery O2 Flow Rate FiO2 05/23/18 15:36 19 93 Room Air 05/23/18 15:30 67 167/78 (107) 05/23/18 12:03 98.0 98.0 Lab Values Laboratory Tests Test 05/23/18 12:35 White Blood Count 9.8 x10^3/uL (4.0-11.0) Red Blood Count 4.09 x10^6/uL (3.50-5.40) Hemoglobin 12.3 g/dL (12.0-15.5) Hematocrit 37.5 % (36.0-47.0) Mean Corpuscular Volume 92 fL (79-100) Mean Corpuscular Hemoglobin 30 pg (25-35) Mean Corpuscular Hemoglobin Concent 33 g/dL (31-37) Red Cell Distribution Width 14.9 % (11.5-14.5) H Platelet Count 275 x10^3/uL (140-400) Neutrophils (%) (Auto) 81 % (31-73) H Lymphocytes (%) (Auto) 12 % (24-48) L Monocytes (%) (Auto) 6 % (0-9) Eosinophils (%) (Auto) 1 % (0-3) Basophils (%) (Auto) 1 % (0-3) Neutrophils # (Auto) 8.0 x10^3uL (1.8-7.7) H Lymphocytes # (Auto) 1.2 x10^3/uL (1.0-4.8) Monocytes # (Auto) 0.6 x10^3/uL (0.0-1.1) Eosinophils # (Auto) 0.0 x10^3/uL (0.0-0.7) Basophils # (Auto) 0.1 x10^3/uL (0.0-0.2) Prothrombin Time 12.8 SEC (11.7-14.0) Prothrombin Time INR 1.0 (0.8-1.1) PTT 25 SEC (24-38) Sodium Level 142 mmol/L (136-145) Potassium Level 4.5 mmol/L (3.5-5.1) Chloride Level 103 mmol/L (98-107) Carbon Dioxide Level 30 mmol/L (21-32) Anion Gap 9 (6-14) Blood Urea Nitrogen 27 mg/dL (7-20) H Creatinine 0.8 mg/dL (0.6-1.0) Estimated GFR (Cockcroft-Gault) 70.5 Glucose Level 103 mg/dL (70-99) H Calcium Level 9.5 mg/dL (8.5-10.1) Total Bilirubin 0.4 mg/dL (0.2-1.0) Direct Bilirubin 0.1 mg/dL (0.0-0.2) Aspartate Amino Transferase (AST) 15 U/L (15-37) Alanine Aminotransferase (ALT) 18 U/L (14-59) Alkaline Phosphatase 102 U/L (46-116) Troponin I Quantitative < 0.017 ng/mL (0.000-0.055) DP-Ydw-J-Type Natriuretic Peptide 96 pg/mL (0-124) Total Protein 7.0 g/dL (6.4-8.2) Albumin 3.3 g/dL (3.4-5.0) L Lipase 51 U/L (73-393) L Laboratory Tests 05/23/18 12:35 Laboratory Tests 05/23/18 12:35 EKG EKG [] Radiology/Procedures Radiology/Procedures [] Course & Med Decision Making Course & Med Decision Making Pertinent Labs and Imaging studies reviewed. (See chart for details) [] Dragon Disclaimer Dragon Disclaimer This electronic medical record was generated, in whole or in part, using a voice recognition dictation system. Departure Departure Impression: Primary Impression: Left wrist pain Disposition: 01 HOME, SELF-CARE Condition: STABLE Referrals: KIERA MALHOTRA (PCP) Patient Instructions: Wrist Pain, [id number] Additional Instructions: Thank you for allowing us to participate in your care today. Return to the emergency department you have any new or worsening symptoms, or if you are concerned for any reason. Return to emergency department if you have any new or concerning symptoms including but not limited to fever, chills, nausea, vomiting, intractable pain, any new rashes, chest pain, shortness of air , uncontrolled bleeding, difficulty breathing, and/or vision loss. Follow up with your primary care physician within 1-2 days. Call your Primary Doctor tomorrow and inform them of your visit today. If you do not have a primary care provider we are happy to provide you with a list of our primary care providers contact information. This condition should be evaluated by your primary care physician and any recommended consulting services for continued management within 2 days after discharge. If at any time, you are having difficulty getting into your primary care doctor or a specialist, return to the emergency department. TI MUNOZ MD May 23, 2018 17:09
--- NOTE | 2018-05-26 13:59 | EKG ---
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
== END 2018-05-23 17:26 | disposition home or self-care (01) ==
LOC: ER 12:03
DX: M25.532 Pain in left wrist (principal); M79.602 Pain in left arm; R07.89 Other chest pain; I48.91 Unspecified atrial fibrillation; J45.909 Unspecified asthma, uncomplicated; I25.10 Atherosclerotic heart disease of native coronary artery without angina pectoris; E78.00 Pure hypercholesterolemia, unspecified; I10 Essential (primary) hypertension; Z98.890 Other specified postprocedural states; F10.20 Alcohol dependence, uncomplicated; Y90.9 Presence of alcohol in blood, level not specified; Z88.2 Allergy status to sulfonamides; Z88.8 Allergy status to other drugs, medicaments and biological substances; Z91.013 Allergy to seafood
CPT/HCPCS: 29125; 36415; 71045; 73090; 73110; 80048; 80076; 83690; 83880; 84484; 85025; 85610; 85730; 93005; 96374; 99284; J1170

== ENCOUNTER 2019-11-26 12:08 | Observation (INO) | payer MEDICARE, OTHER ==
[~2019-11-26] VITALS: Ht 154.9 cm; Wt 107.5 kg
[~2019-11-26 12:08] MED LIST changes: +CYAN-25 PO; -CYAN10005 PO; -DIGO125T PO; +DIGO125T3 PO; +MECL-75 PO; -MECL25TA3 PO; +OMEP20CA16 PO; -OMEP20CA9 PO; +OMEP40CA45 PO; -OMEP40CA5 PO; +TRAZ-118 PO; -TRAZ-85 PO
[2019-11-26 12:40] LABS: BASO # 0.1 x10^3/uL (0.0-0.2); BASO % 1 % (0-3); EOS # 0.1 x10^3/uL (0.0-0.7); EOS % 1 % (0-3); HEMATOCRIT 38.3 % (36.0-47.0); HEMOGLOBIN 12.8 g/dL (12.0-15.5); LYMPH # 1.3 x10^3/uL (1.0-4.8); LYMPH % 14 % (24-48); MEAN CORPUSCULAR HEMOGLOBIN 30 pg (25-35); MEAN CORPUSCULAR HGB CONC 34 g/dL (31-37); MEAN CORPUSCULAR VOLUME 88 fL (79-100); MONO # 0.6 x10^3/uL (0.0-1.1); MONO % 7 % (0-9); NEUT # 7.4 x10^3/uL (1.8-7.7); NEUT % 78 % (31-73); PLATELET COUNT 261 x10^3/uL (140-400); RED BLOOD COUNT 4.35 x10^6/uL (3.50-5.40); RED CELL DISTRIBUTION WIDTH 14.7 % (11.5-14.5); WHITE BLOOD COUNT 9.4 x10^3/uL (4.0-11.0)
--- NOTE | 2019-11-26 12:48 | EKG ---
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
[2019-11-26 12:49] LABS: CALCIUM 9.4 mg/dL (8.5-10.1); CREATININE 0.7 mg/dL (0.6-1.0); POTASSIUM 4.8 mmol/L (3.5-5.1)
[2019-11-26 12:56] LABS: ALBUMIN 3.5 g/dL (3.4-5.0); ALBUMIN/GLOBULIN RATIO 0.9 (1.0-1.7); TOTAL BILIRUBIN 0.4 mg/dL (0.2-1.0); TOTAL PROTEIN 7.3 g/dL (6.4-8.2)
--- NOTE | 2019-11-26 13:33 | PHYS DOC ---
Past Medical History Past Medical History: A-Fib, Arthritis, Asthma, CAD, Depression, High Cholesterol, Hypertension, Other Additional Past Medical Histor: Osteoporosis Past Surgical History: Appendectomy, Cholecystectomy, Hysterectomy, Tonsillectomy, Other Additional Past Surgical Histo: R Arm w/ hardware,CARDIOVERSION Smoking Status: Former Smoker Alcohol Use: Occasionally Drug Use: None General Adult EDM: Chief Complaint: OTHER COMPLAINTS HPI: HPI: 74-year-old female past medical history significant for atrial fibrillation status post electrical cardioversion (on no anticoagulation), pretension, hyperlipidemia and obesity, presents to the ED with complaints of bilateral lower jaw numbness that started at 9 AM. Patient states numbness has improved since then but is still present. No recent dental procedures, anesthesia, vomiting or diarrhea. Also reports last night she had left-sided tight, nonradiating chest pain that lasted for approximately 2 hours while sitting in her chair at 9 PM. Denies any cocaine or methamphetamine use. No family history of CAD, aortic disease or sudden under the age of 50. No personal history of DVT or PE. States she had a normal cardiac catheterization in 2010. Her last stress was 4 to 5 years ago and was unremarkable. States she called her gas charger who referred her here (Dr. Saldivar). Review of systems: Denies associated fever, chills, cough, sore throat, nausea, vomiting, diarrhea, diaphoresis, neck stiffness, headache, syncope, dizziness, hemoptysis, leg swelling, rash, abdominal or back pain, or focal neurologic deficits. Review of Systems: Review of Systems: Constitutional: Denies fever or chills. [] Eyes: Denies change in visual acuity. [] HENT: Denies nasal congestion or sore throat. [] Respiratory: Denies cough or shortness of breath. [] Cardiovascular: Denies chest pain or edema. [] GI: Denies abdominal pain, nausea, vomiting, bloody stools or diarrhea. [] : Denies dysuria. [] Musculoskeletal: Denies back pain or joint pain. [] Integument: Denies rash. [] Neurologic: Denies headache, focal weakness or sensory changes. [] Endocrine: Denies polyuria or polydipsia. [] Lymphatic: Denies swollen glands. [] Psychiatric: Denies depression or anxiety. [] Heart Score: HEART Score for Chest Pain: HEART Score for Chest Pain Response (Comments) Value History Slighlty/Non-Suspicious 0 ECG Normal 0 Age > 65 2 Risk Factors >3 Risk Factors or Hx CAD 2 Troponin < Normal Limit 0 Total 4 Risk Factors: Risk Factors: DM, Current or recent (<one month) smoker, HTN, HLP, family history of CAD, obesity. Risk Scores: Score 0 - 3: 2.5% MACE over next 6 weeks - Discharge Home Score 4 - 6: 20.3% MACE over next 6 weeks - Admit for Clinical Observation Score 7 - 10: 72.7% MACE over next 6 weeks - Early Invasive Strategies Allergies: Allergies: Allergies Coded Allergies Type Severity Reaction Last Updated Verified iodine Allergy Severe Anaphylaxis 06/19/17 Yes iodine Allergy Severe anaphylaxis, throat swelling and difficulty breathing 06/19/17 No shellfish derived Allergy Severe Anaphylaxis 06/19/17 Yes Sulfa (Sulfonamide Antibiotics) Allergy Intermediate Swelling, pain in neck 06/19/17 Yes Physical Exam: PE: Constitutional: Well developed, well nourished, no acute distress, non-toxic a ppearance, obese HENT: Normocephalic, atraumatic, bilateral external ears normal, oropharynx moist, no oral exudates, nose normal. [] Eyes: EOMI, conjunctiva normal, no discharge. [] Neck: Normal range of motion, no tenderness, supple, no stridor. [] Cardiovascular:Heart rate regular rhythm, no murmur [] Lungs & Thorax: Bilateral breath sounds clear to auscultation [] Abdomen: Bowel sounds normal, soft, no tenderness, no masses, no pulsatile masses. [] Skin: Warm, dry, no erythema, no rash. [] Back: No tenderness, no CVA tenderness. [] Extremities: No tenderness, no cyanosis, no clubbing, ROM intact, no edema. [] Neurologic: Alert and oriented X 3, normal motor function, normal sensory function, no focal deficits noted. [] Psychologic: Affect normal, judgement normal, very anxious and becomes tearful - worried because her uncle of a massive heart attack and his only symptom was jaw pain Current Patient Data: Labs: Laboratory Tests Test 11/26/19 12:16 11/26/19 12:25 Glucose (Fingerstick) 112 mg/dL (70-99) H White Blood Count 9.4 x10^3/uL (4.0-11.0) Red Blood Count 4.35 x10^6/uL (3.50-5.40) Hemoglobin 12.8 g/dL (12.0-15.5) Hematocrit 38.3 % (36.0-47.0) Mean Corpuscular Volume 88 fL (79-100) Mean Corpuscular Hemoglobin 30 pg (25-35) Mean Corpuscular Hemoglobin Concent 34 g/dL (31-37) Red Cell Distribution Width 14.7 % (11.5-14.5) H Platelet Count 261 x10^3/uL (140-400) Neutrophils (%) (Auto) 78 % (31-73) H Lymphocytes (%) (Auto) 14 % (24-48) L Monocytes (%) (Auto) 7 % (0-9) Eosinophils (%) (Auto) 1 % (0-3) Basophils (%) (Auto) 1 % (0-3) Neutrophils # (Auto) 7.4 x10^3/uL (1.8-7.7) Lymphocytes # (Auto) 1.3 x10^3/uL (1.0-4.8) Monocytes # (Auto) 0.6 x10^3/uL (0.0-1.1) Eosinophils # (Auto) 0.1 x10^3/uL (0.0-0.7) Basophils # (Auto) 0.1 x10^3/uL (0.0-0.2) Sodium Level 139 mmol/L (136-145) Potassium Level 4.8 mmol/L (3.5-5.1) Chloride Level 102 mmol/L (98-107) Carbon Dioxide Level 30 mmol/L (21-32) Anion Gap 7 (6-14) Blood Urea Nitrogen 23 mg/dL (7-20) H Creatinine 0.7 mg/dL (0.6-1.0) Estimated GFR (Cockcroft-Gault) 82.0 BUN/Creatinine Ratio 33 (6-20) H Glucose Level 114 mg/dL (70-99) H Calcium Level 9.4 mg/dL (8.5-10.1) Total Bilirubin 0.4 mg/dL (0.2-1.0) Aspartate Amino Transferase (AST) 11 U/L (15-37) L Alanine Aminotransferase (ALT) 19 U/L (14-59) Alkaline Phosphatase 107 U/L (46-116) Troponin I Quantitative < 0.017 ng/mL (0.000-0.055) FE-Lyz-B-Type Natriuretic Peptide 143 pg/mL (0-124) H Total Protein 7.3 g/dL (6.4-8.2) Albumin 3.5 g/dL (3.4-5.0) Albumin/Globulin Ratio 0.9 (1.0-1.7) L Laboratory Tests 11/26/19 12:25 Laboratory Tests 11/26/19 12:25 Vital Signs: Vital Signs Date Time Temp Pulse Resp B/P (MAP) Pulse Ox O2 Delivery O2 Flow Rate FiO2 11/26/19 12:10 96.7 72 18 167/71 (103) 94 Room Air 96.7 EKG: EKG: nsr @ 69 bpm, NAD, TWI aVL, no DANIEL/STDs Radiology/Procedures: Radiology/Procedures: IMAGING REPORT Signed PATIENT: MIGEUL IDCKSON LACCOUNT: [id number] : 1945 LOCATION: ER AGE: 74 SEX: F EXAM STATUS: REG ER ORD. PHYSICIAN: JULIOCESAR LACY DO REASON: jaw pain-NUMBNESS PROCEDURE: CT HEAD WO CONTRAST EXAM: CT HEAD WITHOUT CONTRAST. HISTORY: Facial pain and numbness. TECHNIQUE: Computed tomography of the head was performed without intravenous contrast. One or more of the following individualized dose reduction techniques were utilized for this examination: 1. Automated exposure control. 2. Adjustment of the mA and/or kV according to patient size. 3. Use of iterative reconstruction technique. COMPARISON: None. FINDINGS: There is no intracranial hemorrhage. Hypoattenuation within the periventricular white matter indicates mild chronic microangiopathic change. The ventricles are normal in size and position. The visualized paranasal sinuses appear clear. The mandible and inferior face are not included. There are changes of bilateral cataract surgery. The temporal bones are unremarkable. The calvarium reveals no suspicious lesions. There are mild atherosclerotic calcifications of the internal carotid arteries. IMPRESSION: 1. No acute intracranial findings. Electronically signed by: Gee Bailon MD (11/26/2019 1:39 PM) [id number] DICTATED and SIGNED BY: PATITO BAILON MD DATE: 11/26/19 133 IMAGING REPORT Signed PATIENT: MIGUEL DICKSON LACCOUNT: [id number] : 1945 LOCATION: ER AGE: 74 SEX: F EXAM STATUS: REG ER ORD. PHYSICIAN: JULIOCESAR LACY DO REASON: jaw pain PROCEDURE: PORTABLE CHEST 1V EXAM: CHEST 1 VIEW History: Jaw pain COMPARISON: 05/23/2018 TECHNIQUE: Single portable radiograph of the chest FINDINGS: The cardiac silhouette is unremarkable. The lungs are clear bilaterally. The costophrenic sulci are clear and well demarcated. IMPRESSION: No radiographic evidence of an acute cardiopulmonary process. Electronically signed by: Raymond Monaco MD (11/26/2019 1:47 PM) [id number] DICTATED and SIGNED BY: RAYMOND MONACO MD DATE: 11/26/19 0992 Course & Med Decision Making: Course & Med Decision Making Pertinent Labs and Imaging studies reviewed. (See chart for details) Concern for atypical chest pain and jaw pain with no recent cardiac work-up. EKG with T wave inversion in 1-lead but no active ischemia. Prior ekg 05/2018 w/atrial fibrillation, cannot discern TWIs. Prior ekg []. Initial troponin negative. CT head and CXR viewed by myself. Size of mediastinum in CXR does not appear changed from prior 05/2018. Mild hypertension on vitals, 94% on room air with no supplemental oxygen. Has no complaints of dyspnea. Will admit for serial troponins and cardiology evaluation. Patient stable at time of admission and agrees with this plan. I have spoken with the patient and/or caregivers. I have explained the patient's condition, diagnosis and treatment plan based on the information available to me at this time. I have answered the patient's and/or caregivers questions and answered any concerns. The patient and/or caregivers have as good an understanding of the patient's diagnosis, condition and treatment plan as can be expected at this point. The patient has been stabilized within the capability of the emergency department. The patient will be transported for further care and management or will be moved to an observation or inpatient service. I have communicated with the staff or medical practitioner taking over this patient's care. Dragon Disclaimer: Dragon Disclaimer: This electronic medical record was generated, in whole or in part, using a voice recognition dictation system. Departure Departure Impression: Primary Impression: Chest pain Additional Impression: Jaw pain Disposition: 09 ADMITTED INPATIENT Admitting Physician: DIEGO (Dr. Gutierrez) Condition: STABLE Referrals: AIDE WILL MD (PCP) Justicifation of Admission Dx: Justifications for Admission: Justification of Admission Dx: Yes JULIOCESAR LACY DO Nov 26, 2019 13:33
--- NOTE | 2019-11-26 13:42 | RAD ---
EXAM: CT HEAD WITHOUT CONTRAST. HISTORY: Facial pain and numbness. TECHNIQUE: Computed tomography of the head was performed without intravenous contrast. One or more of the following individualized dose reduction techniques were utilized for this examination: 1. Automated exposure control. 2. Adjustment of the mA and/or kV according to patient size. 3. Use of iterative reconstruction technique. COMPARISON: None. FINDINGS: There is no intracranial hemorrhage. Hypoattenuation within the periventricular white matter indicates mild chronic microangiopathic change. The ventricles are normal in size and position. The visualized paranasal sinuses appear clear. The mandible and inferior face are not included. There are changes of bilateral cataract surgery. The temporal bones are unremarkable. The calvarium reveals no suspicious lesions. There are mild atherosclerotic calcifications of the internal carotid arteries. IMPRESSION: 1. No acute intracranial findings. Electronically signed by: Gee Bailon MD (11/26/2019 1:39 PM) [id number]
[2019-11-26] MEDS ORDERED: ALPRAZolam 0.5 MG TABLET PO ONE (13:45)
--- NOTE | 2019-11-26 13:50 | RAD ---
EXAM: CHEST 1 VIEW History: Jaw pain COMPARISON: 05/23/2018 TECHNIQUE: Single portable radiograph of the chest FINDINGS: The cardiac silhouette is unremarkable. The lungs are clear bilaterally. The costophrenic sulci are clear and well demarcated. IMPRESSION: No radiographic evidence of an acute cardiopulmonary process. Electronically signed by: Raymond Monaco MD (11/26/2019 1:47 PM) [id number]
--- NOTE | 2019-11-26 14:25 | PDOC1 ---
History and Physical Date of Admission Date of Admission DATE: 11/26/19 TIME: 14:24 Identification/Chief Complaint Chief Complaint Chest pain Source Source: Patient History of Present Illness History of Present Illness Ms Rosales 74 yo female w/ PMHx AFIB (), CAD (reported mild), HTN, Hyperlipidemia, GERD, hiatal hernia, Anxiety, Depression, OA who comes to ED for complains of chest pain. Left sided sharp pain sudden onset at 9 AM that lasted a few minutes, but then she started having numbness in her jaw that lasted about 4-5 hours. Reports no nausea vomiting, bloating. No significant leg swelling no PND or orthopnea. She has recently noted some dyspnea on exertion. No TMJ and no pain with JAW ROM. Denies any VOGEL. 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 She has suffered from stress and anxiety as her son had previously been her roommate and he had her evicted from his apartment which is led to her current living situation. Has a father with CAD and notes her ex- had the same symptoms 7 weeks before he after a CABG. Normal cardiac cath in 2010. Labs significant for WBC 9.4, Hb 12.8, platelets 261, NA 139, K4.8, BUN 23, CR 0.7, glucose 114, BNP 143, troponin negative EKG - normal sinus rhythm with rate of 69 bpm, NAD, TWI aVL, no ST elevations Admitted for observation for chest pain admitted at the behest of her almond sorter. Past Medical History Cardiovascular: AFIB, CAD, HTN, Hyperlipidemia Pulmonary: Other CENTRAL NERVOUS SYSTEM: Other GI: GERD, Other Heme/Onc: No pertinent hx Hepatobiliary: Other Psych: Anxiety, Depression Musculoskeletal: Other Rheumatologic: Rheumatoid arthritis Renal/: No pertinent hx Endocrine: Osteoporosis Past Surgical History Past Surgical History: Appendectomy, Cholecystectomy, Tonsillectomy, Hysterectomy, Other Family History Family History: Coronary Artery Disease, Hypertension Social History Smoke: Quit (1965) ALCOHOL: none Drugs: None Current Problem List Problem List Problems Medical Problems: (1) Chest pain Status: Acute (2) Jaw pain Status: Acute Current Medications Current Medications Current Medications Alprazolam (Xanax) 0.5 mg 1X ONCE PO Last administered on 11/26/19at 13:41; Start 11/26/19 at 13:45; Stop 8/20/20 at 13:46; Status DC Active Scripts Active Buspirone Hcl 10 Mg Tablet 10 Mg PO BID 30 Days Losartan Potassium 25 Mg Tablet 100 Mg PO DAILY 30 Days Reported Ferrous Sulfate 324 Mg Tablet. 324 Mg PO Omeprazole 40 Mg Capsule.dr 1 Cap PO DAILY Multaq (Dronedarone Hcl) 400 Mg Tablet 1 Tab PO DAILYWSUP Diltiazem 24HR Cd (Diltiazem Hcl) 180 Mg Cap.er.24h 360 Mg PO DAILY Meclizine Hcl 25 Mg Tablet 1 Tab PO TID PRN Xarelto (Rivaroxaban) 20 Mg Tablet 20 Mg PO DAILY Breo Ellipta 100-25 Mcg Inh (Fluticasone/Vilanterol) 1 Each Aer.pow.ba 1 Puff IH DAILY Cymbalta (Duloxetine Hcl) 60 Mg Capsule.dr 1 Cap PO DAILY Alprazolam 0.25 Mg Tablet 0.25 Mg PO PRN Q6HRS PRN Hydrocodone-Apap 7.5-325 (Hydrocodone Bit/Acetaminophen) 1 Each Tablet 1 Tab PO PRN Q6HRS PRN Vitamin D3 (Cholecalciferol (Vitamin D3)) 1,000 Unit Tablet 2,000 Unit PO DAILY Proair Hfa Inhaler (Albuterol Sulfate) 8.5 Gm Hfa.aer.ad 2 Puff INH PRN Q4HRS PRN Atorvastatin Calcium 20 Mg Tablet 20 Mg PO HS Trazodone Hcl 50 Mg Tablet 50 Mg PO HS Aspir 81 (Aspirin) 81 Mg Tablet.dr 81 Mg PO DAILY Allergies Allergies: Coded Allergies: iodine (Verified Allergy, Severe, Anaphylaxis, 06/19/17) iodine (Unverified Allergy, Severe, anaphylaxis, throat swelling and difficulty breathing, 06/19/17) shellfish derived (Verified Allergy, Severe, Anaphylaxis, 06/19/17) Sulfa (Sulfonamide Antibiotics) (Verified Allergy, Intermediate, Swelling, pain in neck, 06/19/17) ROS General: No: Chills, Night Sweats, Fatigue, Malaise, Appetite, Other PSYCHOLOGICAL ROS: No: Anxiety, Behavioral Disorder, Concentration difficultie, Decreased libido, Depression, Disorientation, Hallucinations, Hostility, Irrit ablity, Memory difficulties, Mood Swings, Obsessive thoughts, Physical abuse, Sexual abuse, Sleep disturbances, Suicidal ideation, Other Eyes: No Blurry vision, No Decreased vision, No Double vision, No Dry eyes, No Excessive tearing, No Eye Pain, No Itchy Eyes, No Loss of vision, No Photophobia, No Scotomata, No Uses contacts, No Uses glasses, No Other HEENT: No: Heacaches, Visual Changes, Hearing change, Nasal congestion, Nasal discharge, Oral lesions, Sinus pain, Sore Throat, Epistaxis, Sneezing, Snoring, Tinnitus, Vertigo, Vocal changes, Other ALLERGY AND IMMUNOLOGY: No: Hives, Insect Bite Sensitivity, Itchy/Watery Eyes, Nasal Congestion, Post Nasal Drip, Seasonal Allergies, Other Hematological and Lymphatic: No: Bleeding Problems, Blood Clots, Blood Transfusions, Brusing, Night Sweats, Pallor, Swollen Lymph Nodes, Other ENDOCRINE: No: Breast Changes, Galactorrhea, Hair Pattern Changes, Hot Flashes, Malaise/lethargy, Mood Swings, Palpitations, Polydipsia/polyuria, Skin Changes, Temperature Intolerance, Unexpected Weight Changes, Other Breast: No New/Changing Breast Lumps, No Nipple changes, No Nipple discharge, No Other Respiratory: No: Cough, Hemoptysis, Orthopnea, Pleuritic Pain, Shortness of breath, SOB with excertion, Sputum Changes, Stridor, Tachypnea, Wheezing, Other Cardiovascular: No Chest Pain, No Palpitations, No Orthopnea, No Paroxysmal Noc. Dyspnea, No Edema, No Lt Headedness, No Other Gastrointestinal: No Nausea, No Vomiting, No Abdominal Pain, No Diarrhea, No Constipation, No Melena, No Hematochezia, No Other Genitourinary: No Dysuria, No Frequency, No Incontinence, No Hematuria, No Retention, No Discharge, No Urgency, No Pain, No Flank Pain, No Other, No , No , No , No , No , No , No Musculoskeletal: No Gait Disturbance, No Joint Pain, No Joint Stiffness, No Joint Swelling, No Muscle Pain, No Muscular Weakness, No Pain In:, No Swelling In:, No Other Neurological: No Behavorial Changes, No Bowel/Bladder ControlChng, No Confusion, No Dizziness, No Gait Disturbance, No Headaches, No Impaired Coord/balance, No Memory Loss, No Numbness/Tingling, No Seizures, No Speech Problems, No Tremors, No Visual Changes, No Weakness, No Other Skin: No Dry Skin, No Eczema, No Hair Changes, No Lumps, No Mole Changes, No Mottling, No Nail Changes, No Pruritus, No Rash, No Skin Lesion Changes, No Other, No Acne Physical Exam General: Alert, Oriented X3, Cooperative, No acute distress HEENT: Atraumatic, PERRLA, EOMI, Mucous membr. moist/pink Lungs: Clear to auscultation, Normal air movement Heart: S1S2, RRR, no thrills, no rubs, no gallops, no murmurs Abdomen: Normal bowel sounds, Soft, No tenderness, No hepatosplenomegaly, No masses Rectal Exam: not examined Extremities: No clubbing, No cyanosis, No edema, Normal pulses, No tenderness/swelling Skin: No rashes, No breakdown, No significant lesion Neuro: Normal gait, Normal speech, Strength at 5/5 X4 ext, Normal tone, Sensation intact, Cranial nerves 3-12 NL, Reflexes 2+ Psych/Mental Status: Mental status NL, Mood NL Vitals Vitals Vital Signs Date Time Temp Pulse Resp B/P (MAP) Pulse Ox O2 Delivery O2 Flow Rate FiO2 11/26/19 12:10 96.7 72 18 167/71 (103) 94 Room Air 96.7 Labs Labs Laboratory Tests Test 11/26/19 12:16 11/26/19 12:25 Glucose (Fingerstick) 112 mg/dL (70-99) White Blood Count 9.4 x10^3/uL (4.0-11.0) Red Blood Count 4.35 x10^6/uL (3.50-5.40) Hemoglobin 12.8 g/dL (12.0-15.5) Hematocrit 38.3 % (36.0-47.0) Mean Corpuscular Volume 88 fL (79-100) Mean Corpuscular Hemoglobin 30 pg (25-35) Mean Corpuscular Hemoglobin Concent 34 g/dL (31-37) Red Cell Distribution Width 14.7 % (11.5-14.5) Platelet Count 261 x10^3/uL (140-400) Neutrophils (%) (Auto) 78 % (31-73) Lymphocytes (%) (Auto) 14 % (24-48) Monocytes (%) (Auto) 7 % (0-9) Eosinophils (%) (Auto) 1 % (0-3) Basophils (%) (Auto) 1 % (0-3) Neutrophils # (Auto) 7.4 x10^3/uL (1.8-7.7) Lymphocytes # (Auto) 1.3 x10^3/uL (1.0-4.8) Monocytes # (Auto) 0.6 x10^3/uL (0.0-1.1) Eosinophils # (Auto) 0.1 x10^3/uL (0.0-0.7) Basophils # (Auto) 0.1 x10^3/uL (0.0-0.2) Sodium Level 139 mmol/L (136-145) Potassium Level 4.8 mmol/L (3.5-5.1) Chloride Level 102 mmol/L (98-107) Carbon Dioxide Level 30 mmol/L (21-32) Anion Gap 7 (6-14) Blood Urea Nitrogen 23 mg/dL (7-20) Creatinine 0.7 mg/dL (0.6-1.0) Estimated GFR (Cockcroft-Gault) 82.0 BUN/Creatinine Ratio 33 (6-20) Glucose Level 114 mg/dL (70-99) Calcium Level 9.4 mg/dL (8.5-10.1) Total Bilirubin 0.4 mg/dL (0.2-1.0) Aspartate Amino Transf (AST/SGOT) 11 U/L (15-37) Alanine Aminotransferase (ALT/SGPT) 19 U/L (14-59) Alkaline Phosphatase 107 U/L (46-116) Troponin I Quantitative < 0.017 ng/mL (0.000-0.055) LC-Cjg-N-Type Natriuretic Peptide 143 pg/mL (0-124) Total Protein 7.3 g/dL (6.4-8.2) Albumin 3.5 g/dL (3.4-5.0) Albumin/Globulin Ratio 0.9 (1.0-1.7) Laboratory Tests Test 11/26/19 12:16 11/26/19 12:25 Glucose (Fingerstick) 112 mg/dL (70-99) White Blood Count 9.4 x10^3/uL (4.0-11.0) Red Blood Count 4.35 x10^6/uL (3.50-5.40) Hemoglobin 12.8 g/dL (12.0-15.5) Hematocrit 38.3 % (36.0-47.0) Mean Corpuscular Volume 88 fL (79-100) Mean Corpuscular Hemoglobin 30 pg (25-35) Mean Corpuscular Hemoglobin Concent 34 g/dL (31-37) Red Cell Distribution Width 14.7 % (11.5-14.5) Platelet Count 261 x10^3/uL (140-400) Neutrophils (%) (Auto) 78 % (31-73) Lymphocytes (%) (Auto) 14 % (24-48) Monocytes (%) (Auto) 7 % (0-9) Eosinophils (%) (Auto) 1 % (0-3) Basophils (%) (Auto) 1 % (0-3) Neutrophils # (Auto) 7.4 x10^3/uL (1.8-7.7) Lymphocytes # (Auto) 1.3 x10^3/uL (1.0-4.8) Monocytes # (Auto) 0.6 x10^3/uL (0.0-1.1) Eosinophils # (Auto) 0.1 x10^3/uL (0.0-0.7) Basophils # (Auto) 0.1 x10^3/uL (0.0-0.2) Sodium Level 139 mmol/L (136-145) Potassium Level 4.8 mmol/L (3.5-5.1) Chloride Level 102 mmol/L (98-107) Carbon Dioxide Level 30 mmol/L (21-32) Anion Gap 7 (6-14) Blood Urea Nitrogen 23 mg/dL (7-20) Creatinine 0.7 mg/dL (0.6-1.0) Estimated GFR (Cockcroft-Gault) 82.0 BUN/Creatinine Ratio 33 (6-20) Glucose Level 114 mg/dL (70-99) Calcium Level 9.4 mg/dL (8.5-10.1) Total Bilirubin 0.4 mg/dL (0.2-1.0) Aspartate Amino Transf (AST/SGOT) 11 U/L (15-37) Alanine Aminotransferase (ALT/SGPT) 19 U/L (14-59) Alkaline Phosphatase 107 U/L (46-116) Troponin I Quantitative < 0.017 ng/mL (0.000-0.055) BQ-Mby-O-Type Natriuretic Peptide 143 pg/mL (0-124) Total Protein 7.3 g/dL (6.4-8.2) Albumin 3.5 g/dL (3.4-5.0) Albumin/Globulin Ratio 0.9 (1.0-1.7) Images Images Head CT: There is no intracranial hemorrhage. Hypoattenuation within the periventricular white matter indicates mild chronic microangiopathic change. The ventricles are normal in size and position. The visualized paranasal sinuses appear clear. The mandible and inferior face are not included. There are changes of bilateral cataract surgery. The temporal bones are unremarkable. The calvarium reveals no suspicious lesions. There are mild atherosclerotic calcifications of the internal carotid arteries. IMPRESSION: 1. No acute intracranial findings. CXR - The cardiac silhouette is unremarkable. The lungs are clear bilaterally. The costophrenic sulci are clear and well demarcated. IMPRESSION: No radiographic evidence of an acute cardiopulmonary process. ECHOCARDIOGRAM 06/22/2016 The left ventricle is normal size. Left ventricle systolic function is normal. The Ejection Fraction is 50-55%. There is no significant aortic valvular stenosis. Doppler and Color Flow revealed no significant aortic regurgitation. Doppler and Color Flow revealed trace mitral regurgitation. Doppler and Color Flow revealed trace tricuspid regurgitation. The PA pressure was estimated at 24 mmHg. STRESS TEST 04/18/2016 Conclusion 1. No EKG evidence of stress induced ischemia. 2. Nuclear images show no reversible ischemia or infact. 3. Normal LV systolic function with ejection fraction of greater than 70%. 4. Low risk Lexiscan nuclear stress test. VTE Prophylaxis Ordered VTE Prophylaxis Devices: Yes VTE Pharmacological Prophylaxi: Yes Assessment/Plan Assessment/Plan A/P: Chest pain - age, HTN, HLD as risk factors with some typical features. Trops nml so far and no acute EKG changes. Cardiology consulted. NPO after midnight. Trend trops, tele HTN - controlled Remote h/o AFIB () - PAFIB: maintaining SR/SB lowest 50s HLD - cont statin Morbid obesity -also on weight loss diet and exercise CAD - mild in 2010, no past intervention GERD with hiatal hernia - H2 yannick therapy Anxiety, Depression - continue meds OA -bilateral knees, she knows she needs to lose weight prior to having any surgical interventions. FEN - Cardiac diet, npo after midnight PPX - ambulatory, lovenox FULL CODE Dispo - observation for chest pain Justicifation of Admission Dx: Justifications for Admission: Justification of Admission Dx: Yes YOBANY GONZALEZ MD Nov 26, 2019 14:25
--- NOTE | 2019-11-26 16:05 | NUR ---
Pt arrived on unit from ER by wheelchair at 1605. Pt assisted to the bathroom upon arrival. Pt denying pain and numbness at this time. Fresh water pitcher given. Pt has no concerns. Will assume care of this pt and monitor closely.
[2019-11-26 16:16] VITALS: BP 141/60
--- NOTE | 2019-11-26 16:22 | PDOC2 ---
CARDIAC CONSULT DATE OF CONSULT Date of Consult DATE: 11/26/19 TIME: 16:18 REASON FOR CONSULT Reason for Consult: Chest pain REFERRING PHYSICIAN Referring Physician: [facility] SOURCE Source: Chart review, Patient HISTORY OF PRESENT ILLNESS HISTORY OF PRESENT ILLNESS This is a pleasant 74 yo female admitted for complains of chest pain. Reports that this is pinching left sided pain and nagging at times. This morning around 9 AM she started having numbness in her jaw but no significant chest pain at that time but this lasted about 4-5 hours. Reports no nausea vomiting, bloating. No significant leg swelling no PND or orthopnea. However she has noticed MORALES. No palpitations, frequent dizziness. She uses cane with her right hand and noo limitation to her shoulder ROM and neck ROM. No recent falls or injury. It has been remote on her last [facility] but no stents in the past. No TMJ and no pain with JAW ROM. Denies any VOGEL. PAST MEDICAL HISTORY Past Medical History Cardiovascular: AFIB (), CAD (reported mild), HTN, Hyperlipidemia Pulmonary: Other (lung nodules followed by Dr. Youssef - "stable" ) CENTRAL NERVOUS SYSTEM: Other (none) GI: GERD, Other (hiatal hernia) Heme/Onc: No pertinent hx Hepatobiliary: Other ("enlarged liver" ) Psych: Anxiety, Depression Musculoskeletal: Other (dislocated right elbow; fracture right forearm with surgical repair) Rheumatologic: Rheumatoid arthritis ENT: No pertinent hx Renal/: No pertinent hx Endocrine: Osteoporosis Dermatology: No pertinent hx PAST SURGICAL HISTORY Past Surgical History Appendectomy, Cholecystectomy, Tonsillectomy, Hysterectomy, Other (surgical repair right forearm fracture) FAMILY HISTORY Family History Coronary Artery Disease (father age 72 of [place] after GI surgery), Hypertension (mother) SOCIAL HISTORY Social History Smoke: Quit (in her 20s) ALCOHOL: other (usually 2 glassess of wine/day) Drugs: None Lives: Alone CURRENT MEDICATIONS CURRENT MEDICATIONS Current Medications Medications (Trade) Dose Ordered Sig/Dev Route PRN Reason Start Time Stop Time Status Last Admin Dose Admin Alprazolam (Xanax) 0.5 mg 1X ONCE PO 11/26/19 13:45 11/26/19 13:46 DC 11/26/19 13:41 ALLERGIES ALLERGIES: Coded Allergies: iodine (Verified Allergy, Severe, Anaphylaxis, 06/19/17) iodine (Unverified Allergy, Severe, anaphylaxis, throat swelling and difficulty breathing, 06/19/17) shellfish derived (Verified Allergy, Severe, Anaphylaxis, 06/19/17) Sulfa (Sulfonamide Antibiotics) (Verified Allergy, Intermediate, Swelling, pain in neck, 06/19/17) ROS Review of System 14 point ROS evaluated with pertinent positives noted per HPI PHYSICAL EXAM General: Alert, Oriented X3, Cooperative, No acute distress HEENT: Atraumatic, Mucous membr. moist/pink Lungs: Clear to auscultation, Normal air movement Heart: Regular rate (SR/SB), Other (distant heart sounds) Abdomen: Soft, No tenderness, Other (obese) Extremities: No cyanosis, Other (1+ bilateral LE pitting edema) Skin: No breakdown, No significant lesion Neuro: Normal speech, Sensation intact Psych/Mental Status: Mental status NL, Mood NL MUSCULOSKELETAL: Osteoarthritic changes both hands VITALS/I&O VITALS/I&O: Vital Signs Date Time Temp Pulse Resp B/P (MAP) Pulse Ox O2 Delivery O2 Flow Rate FiO2 11/26/19 16:16 97.9 64 18 141/60 (87) 95 Room Air 97.9 LABS Lab: Laboratory Tests Test 11/26/19 12:16 11/26/19 12:25 11/26/19 15:30 Glucose (Fingerstick) 112 mg/dL (70-99) H White Blood Count 9.4 x10^3/uL (4.0-11.0) Red Blood Count 4.35 x10^6/uL (3.50-5.40) Hemoglobin 12.8 g/dL (12.0-15.5) Hematocrit 38.3 % (36.0-47.0) Mean Corpuscular Volume 88 fL (79-100) Mean Corpuscular Hemoglobin 30 pg (25-35) Mean Corpuscular Hemoglobin Concent 34 g/dL (31-37) Red Cell Distribution Width 14.7 % (11.5-14.5) H Platelet Count 261 x10^3/uL (140-400) Neutrophils (%) (Auto) 78 % (31-73) H Lymphocytes (%) (Auto) 14 % (24-48) L Monocytes (%) (Auto) 7 % (0-9) Eosinophils (%) (Auto) 1 % (0-3) Basophils (%) (Auto) 1 % (0-3) Neutrophils # (Auto) 7.4 x10^3/uL (1.8-7.7) Lymphocytes # (Auto) 1.3 x10^3/uL (1.0-4.8) Monocytes # (Auto) 0.6 x10^3/uL (0.0-1.1) Eosinophils # (Auto) 0.1 x10^3/uL (0.0-0.7) Basophils # (Auto) 0.1 x10^3/uL (0.0-0.2) Sodium Level 139 mmol/L (136-145) Potassium Level 4.8 mmol/L (3.5-5.1) Chloride Level 102 mmol/L (98-107) Carbon Dioxide Level 30 mmol/L (21-32) Anion Gap 7 (6-14) Blood Urea Nitrogen 23 mg/dL (7-20) H Creatinine 0.7 mg/dL (0.6-1.0) Estimated GFR (Cockcroft-Gault) 82.0 BUN/Creatinine Ratio 33 (6-20) H Glucose Level 114 mg/dL (70-99) H Calcium Level 9.4 mg/dL (8.5-10.1) Total Bilirubin 0.4 mg/dL (0.2-1.0) Aspartate Amino Transferase (AST) 11 U/L (15-37) L Alanine Aminotransferase (ALT) 19 U/L (14-59) Alkaline Phosphatase 107 U/L (46-116) Troponin I Quantitative < 0.017 ng/mL (0.000-0.055) < 0.017 ng/mL (0.000-0.055) MQ-Kty-Q-Type Natriuretic Peptide 143 pg/mL (0-124) H Total Protein 7.3 g/dL (6.4-8.2) Albumin 3.5 g/dL (3.4-5.0) Albumin/Globulin Ratio 0.9 (1.0-1.7) L Laboratory Tests 11/26/19 12:25 Laboratory Tests 11/26/19 12:25 ECHOCARDIOGRAM ECHOCARDIOGRAM <Conclusion> The left ventricle is normal size. Left ventricle systolic function is normal. The Ejection Fraction is 50-55%. There is no significant aortic valvular stenosis. Doppler and Color Flow revealed no significant aortic regurgitation. Doppler and Color Flow revealed trace mitral regurgitation. Doppler and Color Flow revealed trace tricuspid regurgitation. The PA pressure was estimated at 24 mmHg. DATE: 06/22/16 1018 STRESS TEST STRESS TEST Conclusion 1. No EKG evidence of stress induced ischemia. 2. Nuclear images show no reversible ischemia or infact. 3. Normal LV systolic function with ejection fraction of greater than 70%. 4. Low risk Lexiscan nuclear stress test. DATE: 02/06/17 1309 ASSESSMENT/PLAN ASSESSMENT/PLAN 1. Chest pain: with some typical features. Trops nml so far and no acute EKG changes 2. HTN: controlled 3. PAFIB: maintaining SR/SB lowest 50s 4. HLP 5. Morbid obesity 6. CAD; no past intervention 7. GERD with hiatal hernia Recommendations 1. TTE. NPO after MN possibly MPI in AM pending status overnight 2. Continue with secondary prevention measures. VALERIE HIDALGO APRN Nov 26, 2019 16:22
[2019-11-26] MEDS ORDERED: DRON400T PO (17:42)
[2019-11-26] MEDS ORDERED: CHOL500021 PO (17:42)
[2019-11-26] MEDS ORDERED: ALBUTEROL SULFATE 2.5 MG/3 ML NEBU. INH PRN (17:45)
[2019-11-26] MEDS ORDERED: ALPRAZolam 0.25 MG TABLET PO PRN (17:45)
[2019-11-26 19:18] VITALS: BP 129/54
[2019-11-26] MEDS: ALBUTEROL SULFATE 2.5 MG/3 ML NEBU. NEB SCH (20:30)
[2019-11-26] MEDS: BUDESONIDE 0.5 MG/2 ML NEBU. NEB SCH (20:30)
[2019-11-26] MEDS: ENOXAPARIN 40 MG/0.4 ML SYRINGE. SQ SCH (21:00)
[2019-11-26] MEDS ORDERED: ATORVASTATIN CALCIUM 20 MG TABLET PO SCH (21:00)
[2019-11-26] MEDS ORDERED: traZODone 50 MG TABLET. PO SCH (21:00)
[2019-11-26] MEDS: DRONEDARONE HCL 400 MG TABLET PO SCH (21:08)
[2019-11-26] MEDS: busPIRone 10 MG TABLET. PO SCH (21:08)
[2019-11-26 22:33] VITALS: BP 132/51
[2019-11-27 02:08] VITALS: BP 134/50
[2019-11-27 05:22] LABS: BASO # 0.1 x10^3/uL (0.0-0.2); BASO % 1 % (0-3); EOS # 0.1 x10^3/uL (0.0-0.7); EOS % 2 % (0-3); HEMATOCRIT 34.5 % (36.0-47.0); HEMOGLOBIN 11.3 g/dL (12.0-15.5); LYMPH # 1.6 x10^3/uL (1.0-4.8); LYMPH % 20 % (24-48); MEAN CORPUSCULAR HEMOGLOBIN 29 pg (25-35); MEAN CORPUSCULAR HGB CONC 33 g/dL (31-37); MEAN CORPUSCULAR VOLUME 89 fL (79-100); MONO # 0.6 x10^3/uL (0.0-1.1); MONO % 7 % (0-9); NEUT # 5.4 x10^3/uL (1.8-7.7); NEUT % 70 % (31-73); PLATELET COUNT 213 x10^3/uL (140-400); RED BLOOD COUNT 3.87 x10^6/uL (3.50-5.40); RED CELL DISTRIBUTION WIDTH 14.3 % (11.5-14.5); WHITE BLOOD COUNT 7.7 x10^3/uL (4.0-11.0)
[2019-11-27 05:37] LABS: CALCIUM 8.7 mg/dL (8.5-10.1); CREATININE 0.8 mg/dL (0.6-1.0); GFR 70.3; POTASSIUM 4.4 mmol/L (3.5-5.1)
[2019-11-27 05:48] LABS: CHOLESTEROL/HDL RATIO 2.4
[2019-11-27 07:00] VITALS: BP 139/68
[2019-11-27] MEDS ORDERED: PANTOPRAZOLE 40 MG TABLET.DR. PO SCH (07:30)
[2019-11-27] MEDS: ALBUTEROL SULFATE 2.5 MG/3 ML NEBU. NEB SCH ×2 (07:56→11:55)
[2019-11-27] MEDS: BUDESONIDE 0.5 MG/2 ML NEBU. NEB SCH (07:56)
[2019-11-27] MEDS ORDERED: REGADENOSON 0.4 MG/5 ML DISP.SYRIN. IV ONE (08:30)
--- NOTE | 2019-11-27 08:37 | PDOC ---
VALERIE HIDALGO TIE INSPECTOR 11/27/19 0837: CARDIO Progress Notes Date and Time Date of Service 11/27/2019 Time of Evaluation 1430 Subjective Subjective: No Chest Pain, No shortness of breath, No Palpitations Vitals Vitals Vital Signs Date Time Temp Pulse Resp B/P (MAP) Pulse Ox O2 Delivery O2 Flow Rate FiO2 11/27/19 08:18 Room Air 11/27/19 07:57 95 11/27/19 07:00 97.6 65 18 139/68 (91) 97.6 Weight Weight [ ] Input and Output Intake and Output Intake and Output 11/27/19 07:00 Intake Total 300 ml Balance 300 ml Intake Oral 300 ml # Voids 2 # Bowel Movements 1 Laboratory Labs Laboratory Tests Test 11/26/19 12:16 11/26/19 12:25 11/26/19 15:30 11/26/19 18:15 Glucose (Fingerstick) 112 mg/dL (70-99) White Blood Count 9.4 x10^3/uL (4.0-11.0) Red Blood Count 4.35 x10^6/uL (3.50-5.40) Hemoglobin 12.8 g/dL (12.0-15.5) Hematocrit 38.3 % (36.0-47.0) Mean Corpuscular Volume 88 fL (79-100) Mean Corpuscular Hemoglobin 30 pg (25-35) Mean Corpuscular Hemoglobin Concent 34 g/dL (31-37) Red Cell Distribution Width 14.7 % (11.5-14.5) Platelet Count 261 x10^3/uL (140-400) Neutrophils (%) (Auto) 78 % (31-73) Lymphocytes (%) (Auto) 14 % (24-48) Monocytes (%) (Auto) 7 % (0-9) Eosinophils (%) (Auto) 1 % (0-3) Basophils (%) (Auto) 1 % (0-3) Neutrophils # (Auto) 7.4 x10^3/uL (1.8-7.7) Lymphocytes # (Auto) 1.3 x10^3/uL (1.0-4.8) Monocytes # (Auto) 0.6 x10^3/uL (0.0-1.1) Eosinophils # (Auto) 0.1 x10^3/uL (0.0-0.7) Basophils # (Auto) 0.1 x10^3/uL (0.0-0.2) Sodium Level 139 mmol/L (136-145) Potassium Level 4.8 mmol/L (3.5-5.1) Chloride Level 102 mmol/L (98-107) Carbon Dioxide Level 30 mmol/L (21-32) Anion Gap 7 (6-14) Blood Urea Nitrogen 23 mg/dL (7-20) Creatinine 0.7 mg/dL (0.6-1.0) Estimated GFR (Cockcroft-Gault) 82.0 BUN/Creatinine Ratio 33 (6-20) Glucose Level 114 mg/dL (70-99) Calcium Level 9.4 mg/dL (8.5-10.1) Total Bilirubin 0.4 mg/dL (0.2-1.0) Aspartate Amino Transf (AST/SGOT) 11 U/L (15-37) Alanine Aminotransferase (ALT/SGPT) 19 U/L (14-59) Alkaline Phosphatase 107 U/L (46-116) Troponin I Quantitative < 0.017 ng/mL (0.000-0.055) < 0.017 ng/mL (0.000-0.055) < 0.017 ng/mL (0.000-0.055) MN-Tlv-P-Type Natriuretic Peptide 143 pg/mL (0-124) Total Protein 7.3 g/dL (6.4-8.2) Albumin 3.5 g/dL (3.4-5.0) Albumin/Globulin Ratio 0.9 (1.0-1.7) Thyroid Stimulating Hormone (TSH) 1.619 uIU/mL (0.358-3.74) Test 11/27/19 05:00 White Blood Count 7.7 x10^3/uL (4.0-11.0) Red Blood Count 3.87 x10^6/uL (3.50-5.40) Hemoglobin 11.3 g/dL (12.0-15.5) Hematocrit 34.5 % (36.0-47.0) Mean Corpuscular Volume 89 fL (79-100) Mean Corpuscular Hemoglobin 29 pg (25-35) Mean Corpuscular Hemoglobin Concent 33 g/dL (31-37) Red Cell Distribution Width 14.3 % (11.5-14.5) Platelet Count 213 x10^3/uL (140-400) Neutrophils (%) (Auto) 70 % (31-73) Lymphocytes (%) (Auto) 20 % (24-48) Monocytes (%) (Auto) 7 % (0-9) Eosinophils (%) (Auto) 2 % (0-3) Basophils (%) (Auto) 1 % (0-3) Neutrophils # (Auto) 5.4 x10^3/uL (1.8-7.7) Lymphocytes # (Auto) 1.6 x10^3/uL (1.0-4.8) Monocytes # (Auto) 0.6 x10^3/uL (0.0-1.1) Eosinophils # (Auto) 0.1 x10^3/uL (0.0-0.7) Basophils # (Auto) 0.1 x10^3/uL (0.0-0.2) Sodium Level 142 mmol/L (136-145) Potassium Level 4.4 mmol/L (3.5-5.1) Chloride Level 105 mmol/L (98-107) Carbon Dioxide Level 32 mmol/L (21-32) Anion Gap 5 (6-14) Blood Urea Nitrogen 20 mg/dL (7-20) Creatinine 0.8 mg/dL (0.6-1.0) Estimated GFR (Cockcroft-Gault) 70.3 Glucose Level 102 mg/dL (70-99) Calcium Level 8.7 mg/dL (8.5-10.1) Triglycerides Level 112 mg/dL (0-150) Cholesterol Level 149 mg/dL (0-200) LDL Cholesterol, Calculated 64 mg/dL (0-100) VLDL Cholesterol, Calculated 22 mg/dL (0-40) Non-HDL Cholesterol Calculated 86 mg/dL (0-129) HDL Cholesterol 63 mg/dL (40-60) Cholesterol/HDL Ratio 2.4 Physical Exam HEENT: Neck Supple W Full Motion Chest: Symmetric LUNGS: Clear to Auscultation Heart: S1S2, RRR (SR no ectopies) Abdomen: Soft N/T Extremities: No Edema, No Calf Tenderness Neurology: alert, oriented, follow commands Assessment Assessment 1. Chest pain: MPI with no stress induced ischemia. Possibly MSK in origin 2. HTN: controlled 3. PAFIB: maintaining SR/SB lowest 50s 4. HLP 5. Morbid obesity 6. CAD; no past intervention 7. GERD with hiatal hernia Recommendations 1. Continue with secondary prevention measures. 2. Continue multaq for rhythm maintenance 3. August DC and follow up with Dr. Trimble on January 04 at 1:15 PM Justicifation of Admission Dx: Justifications for Admission: Justification of Admission Dx: Yes MYA TRIMBLE MD 11/27/19 1619: CARDIO Progress Notes Assessment Assessment Patient seen and evaluated Chest pain: MPI with no stress induced ischemia. Continue medical treatment. Outpatient follow-up as above. HTN: controlled PAFIB: maintaining SR/SB lowest 50s. On Multaq. HLP Morbid obesity GERD VALERIE HIDALGO APRN Nov 27, 2019 08:37 MYA TRIMBLE MD Nov 27, 2019 16:19
[2019-11-27] MEDS ORDERED: LOSARTAN POTASSIUM 25 MG TABLET. PO SCH (09:00)
[2019-11-27] MEDS ORDERED: CHOLECALCIFEROL (VITAMIN D3) 5,000 UNIT CAPSULE PO SCH (09:00)
[2019-11-27] MEDS ORDERED: ASPIRIN ENTERIC COATED 81 MG TABLET.DR. PO SCH (09:00)
[2019-11-27] MEDS ORDERED: NON FORMULARY ITEM (Fluticasone/Vilanterol (Breo Ellipta 100-25 Mcg Inh) 1 PUFF) IH SCH (09:00)
[2019-11-27] MEDS ORDERED: DULoxetine HCL 30 MG CAPSULE.DR PO SCH (09:00)
[2019-11-27] MEDS: ENOXAPARIN 40 MG/0.4 ML SYRINGE. SQ SCH (09:34)
[2019-11-27] MEDS: busPIRone 10 MG TABLET. PO SCH (09:34)
[2019-11-27 10:46] VITALS: BP 143/74
[2019-11-27] MEDS: DRONEDARONE HCL 400 MG TABLET PO SCH (10:55)
--- NOTE | 2019-11-27 11:46 | NUR ---
SS following for discharge planning. SS reviewed pt chart and discussed with pt RN. Pt is from home and is currently on room air. Pt ambulatory in room. Cardiology consulted. SS will continue to follow for discharge planning.
--- NOTE | 2019-11-27 12:58 | CARD ---
MR#: [id number] Date of Study: 11/27/2019 Ordering Physician: VALERIE HIDALGO, Referring Physician: VALERIE HIDALGO, Tech: Inessa Raymundo [facility] APPROVED REPORT EXAM: Two-dimensional and M-mode echocardiogram with Doppler and color Doppler. Other Information Quality : Good INDICATION Chest Pain 2D DIMENSIONS RVDd3.0 (2.9-3.5cm)Left Atrium(2D)4.2 (1.6-4.0cm) IVSd1.4 (0.7-1.1cm)Aortic Root(2D)2.7 (2.0-3.7cm) LVDd4.6 (3.9-5.9cm)LVOT Diameter2.4 (1.8-2.4cm) PWd1.3 (0.7-1.1cm)LVDs2.1 (2.5-4.0cm) FS (%) 30.0 %SV83.6 ml Aortic Valve AoV Peak Jake.197.5cm/sAoV VTI37.0cm AO Peak GR.15.6mmHgLVOT Peak Jake.151.3cm/s AO Mean GR.8mmHgAVA (VMAX)3.37cm2 ANNETTE (VTI)3.40cm2 Mitral Valve MV E Mhmuovvi26.3cm/sMV DECEL OTVN423gc MV A Rrpbnnih057.8cm/sE/A Ratio0.8 Tricuspid Valve TR P. Vxqfyhit080xx/sRAP LMRYFGPN2xuOz TR Peak Gr.86soGfTIYV64qsCm Pulmonary Vein S1 Sncmuslu36.9cm/sD2 Cxxeqpte94.5cm/s LEFT VENTRICLE The left ventricle is normal size. There is mild concentric left ventricular hypertrophy. The left ve ntricular systolic function is normal and the ejection fraction is within normal range. The Ejection Fraction is 55-60%. There is normal LV segmental wall motion. Transmitral Doppler flow pattern is Gra de I-abnormal relaxation pattern. RIGHT VENTRICLE The right ventricle is normal size. The right ventricular systolic function is normal. ATRIA The left atrium is mildly dilated. The right atrium size is normal. The interatrial septum is intact with no evidence for an atrial septal defect or patent foramen ovale as noted on 2-D or Doppler imagi ng. AORTIC VALVE The aortic valve is calcified but opens well. Doppler and Color Flow revealed no significant aortic r egurgitation. There is no significant aortic valvular stenosis. MITRAL VALVE The mitral valve is calcified but opens well. Mitral annular calcification is mild. There is no evide nce of mitral valve prolapse. There is no mitral valve stenosis. Doppler and Color Flow revealed trac e mitral valve regurgitation. TRICUSPID VALVE The tricuspid valve is normal in structure and function. Doppler and Color Flow revealed trace tricus pid regurgitation. The PA pressure was estimated at 26 mmHg. There is no tricuspid valve stenosis. PULMONIC VALVE The pulmonic valve is not well visualized. Doppler and Color Flow revealed no pulmonic valvular regur gitation. There is no pulmonic valvular stenosis. GREAT VESSELS The aortic root is normal in size. The ascending aorta is not well seen. The IVC is normal in size an d collapses >50% with inspiration. PERICARDIAL EFFUSION There is no evidence of significant pericardial effusion. Critical Notification Critical Value: No <Conclusion> The left ventricle is normal size. The left ventricular systolic function is normal and the ejection fraction is within normal range. The Ejection Fraction is 55-60%. There is mild concentric left ventricular hypertrophy. Doppler and Color Flow revealed no significant aortic regurgitation. There is no significant aortic valvular stenosis. Doppler and Color Flow revealed trace mitral valve regurgitation. Doppler and Color Flow revealed trace tricuspid regurgitation. The PA pressure was estimated at 26 mmHg. Signed by : Isaac Trimble MD Electronically Approved : 11/27/2019 12:57:35
--- NOTE | 2019-11-27 13:45 | RAD ---
MR#: [id number] Date of Study: 11/27/2019 Ordering Physician: VALERIE HIDALGO, Referring Physician: SIOBHAN KUMAR Tech: VOLODYMYR Bonilla APPROVED REPORT Test Type: Pharmacological Stress Nurse/Tech: Nataliya Solomon RN Test Indications: Chest Pain Cardiac History: Hypertension, Family history Medications: See Electronic Medical Record Medical History: See Electronic Medical Record Resting ECG: SR Resting Heart Rate: 61 bpm Resting Blood Pressure: 141/65mmHg Pretest Chest Pain: No chest pain Nurse/Tech Notes S1S2, Lungs CTA Consent: The procedure was explained to the patient in lay terms. Informed consent was witnessed. [place] eout was entered into [employer]. History and Stress Test performed by RT Abril (R) (N) Pharm. Details Pharmacologic stress testing was performed using 0.4mg per 5ml of regadenoson given intravenously ove r 7-10 seconds. Stress Symptoms Fatigue, Flushing, Chest and jaw achey can not rate per patient. POST EXERCISE Reason for Termination: Infusion complete Max HR: 80 bpm Max Blood Pressure: 149/52mmHg Blood Pressure response to exercise: Normal blood pressure response during stress. Heart Rate response to exercise: WNL Chest Pain: No. Patient states no pain but "chest achey". Arrhythmia: No. ST Change: No. INTERPRETATION Stress EKG Conclusion: The resting EKG shows a sinus rhythm and minimal nonspecific ST segment change s. The stress EKG shows no significant changes from baseline. No EKG evidence of stress-induced ischemia. Imaging Protocol IMAGE PROTOCOL: Stress Tc-99m/rest Tc-99m 2 days Rest: Stress: Viability: Radiopharm.Tc99m Sestamibi [id number] Duration 13min. Img Date 11/27/2019 Inj-Img [id number]. Stress Admin Site: IV - Right AntecubitalAdministrator: RT Abril (R)(N) STRESS DATA End Diast. Vol.122.0mlAv. Heart Rate66.0bpm End Syst. Vol.34.0mlCO Index BSA0.0L/min Myocardial Ojej752.0gEject. Hygjizxh77.0% Stress Rates Pk. Fill Rate2.12EDV/secLVtime Pk. Fill 268.18msec Pk. Empty Rate4.23ESV/secLVtime Pk. Jrmso400.41msec / Pk. Fill1.37EDV/sec Stress Scores Regional WT0.00Summed WT1.00 Regional WM0.00Summed WM3.00 LV Perfusion The stress images show no significant defects. Wall Motion Left ventricular systolic function is normal with no regional wall motion abnormalities and an ejecti on fraction of greater than 70%. LV Perf. Quant 17 Seg. SSS0.00 Stress Defect Extent (% LAD)2.50Rest Defect Extent (% LAD)Rev. Defect Extent (% LAD) Stress Defect Extent (% LCX) 0.00Rest Defect Extent (% LCX)Rev. Defect Extent (% LCX) Stress Defect Extent (% RCA)0.00Rest Defect Extent (% RCA)Rev. Defect Extent (% RCA) Stress Defect Extent (% SUNDAY)2.40Rest Defect Extent (% SUNDAY)Rev. Defect Extent (% SUNDAY) Conclusion 1. No EKG evidence of stress-induced ischemia. 2. Stress scans show no significant abnormalities. There is no evidence of reversible ischemia or in farct. 3. Left ventricular systolic function is normal with an ejection fraction of greater than 70%. 4. Low risk Lexiscan nuclear stress test. Signed by : Isaac Trimble MD Electronically Approved : 11/27/2019 13:45:06
[2019-11-27 15:07] VITALS: BP 144/50
--- NOTE | 2019-11-27 16:45 | NUR ---
Pt left unit at 1645 by wheelchair via private vehicle. IV removed with no complications, belongings sent with pt. Discharge paperwork and follow-up discussed with pt.
--- NOTE | 2019-11-27 17:19 | PDOC3 ---
Discharge Summary Visit Information Date of Admission: Nov 26, 2019 Date of Discharge: Nov 27, 2019 Admitting Diagnosis Comment: Chest pain - age, HTN, HLD as risk factors with some typical features. Trops nml so far and no acute EKG changes. Cardiology consulted. NPO after midnight. Trend trops, tele HTN - controlled Remote h/o AFIB () - PAFIB: maintaining SR/SB lowest 50s HLD - cont statin Morbid obesity -also on weight loss diet and exercise CAD - mild in 2010, no past intervention GERD with hiatal hernia - H2 yannick therapy Anxiety, Depression - continue meds OA -bilateral knees, she knows she needs to lose weight prior to having any surgical interventions. Final Diagnosis Problems Medical Problems: (1) Chest pain Status: Acute (2) Jaw pain Status: Acute Assessment 1. Chest pain: MPI with no stress induced ischemia. Possibly MSK in origin 2. HTN: controlled 3. PAFIB: maintaining SR/SB lowest 50s 4. HLP 5. Morbid obesity 6. CAD; no past intervention 7. GERD with hiatal hernia Brief Hospital Course Allergies Allergies Coded Allergies Type Severity Reaction Last Updated Verified iodine Allergy Severe Anaphylaxis 06/19/17 Yes iodine Allergy Severe anaphylaxis, throat swelling and difficulty breathing 06/19/17 No shellfish derived Allergy Severe Anaphylaxis 06/19/17 Yes Sulfa (Sulfonamide Antibiotics) Allergy Intermediate Swelling, pain in neck 06/19/17 Yes Vital Signs Vital Signs Date Time Temp Pulse Resp B/P (MAP) Pulse Ox O2 Delivery O2 Flow Rate FiO2 11/27/19 15:07 98.1 67 16 144/50 (81) 99 Room Air 98.1 Lab Results Laboratory Tests Test 11/26/19 12:16 11/26/19 12:25 11/26/19 15:30 11/26/19 18:15 Glucose (Fingerstick) 112 mg/dL (70-99) White Blood Count 9.4 x10^3/uL (4.0-11.0) Red Blood Count 4.35 x10^6/uL (3.50-5.40) Hemoglobin 12.8 g/dL (12.0-15.5) Hematocrit 38.3 % (36.0-47.0) Mean Corpuscular Volume 88 fL (79-100) Mean Corpuscular Hemoglobin 30 pg (25-35) Mean Corpuscular Hemoglobin Concent 34 g/dL (31-37) Red Cell Distribution Width 14.7 % (11.5-14.5) Platelet Count 261 x10^3/uL (140-400) Neutrophils (%) (Auto) 78 % (31-73) Lymphocytes (%) (Auto) 14 % (24-48) Monocytes (%) (Auto) 7 % (0-9) Eosinophils (%) (Auto) 1 % (0-3) Basophils (%) (Auto) 1 % (0-3) Neutrophils # (Auto) 7.4 x10^3/uL (1.8-7.7) Lymphocytes # (Auto) 1.3 x10^3/uL (1.0-4.8) Monocytes # (Auto) 0.6 x10^3/uL (0.0-1.1) Eosinophils # (Auto) 0.1 x10^3/uL (0.0-0.7) Basophils # (Auto) 0.1 x10^3/uL (0.0-0.2) Sodium Level 139 mmol/L (136-145) Potassium Level 4.8 mmol/L (3.5-5.1) Chloride Level 102 mmol/L (98-107) Carbon Dioxide Level 30 mmol/L (21-32) Anion Gap 7 (6-14) Blood Urea Nitrogen 23 mg/dL (7-20) Creatinine 0.7 mg/dL (0.6-1.0) Estimated GFR (Cockcroft-Gault) 82.0 BUN/Creatinine Ratio 33 (6-20) Glucose Level 114 mg/dL (70-99) Calcium Level 9.4 mg/dL (8.5-10.1) Total Bilirubin 0.4 mg/dL (0.2-1.0) Aspartate Amino Transf (AST/SGOT) 11 U/L (15-37) Alanine Aminotransferase (ALT/SGPT) 19 U/L (14-59) Alkaline Phosphatase 107 U/L (46-116) Troponin I Quantitative < 0.017 ng/mL (0.000-0.055) < 0.017 ng/mL (0.000-0.055) < 0.017 ng/mL (0.000-0.055) NL-Ikl-V-Type Natriuretic Peptide 143 pg/mL (0-124) Total Protein 7.3 g/dL (6.4-8.2) Albumin 3.5 g/dL (3.4-5.0) Albumin/Globulin Ratio 0.9 (1.0-1.7) Thyroid Stimulating Hormone (TSH) 1.619 uIU/mL (0.358-3.74) Test 11/27/19 05:00 White Blood Count 7.7 x10^3/uL (4.0-11.0) Red Blood Count 3.87 x10^6/uL (3.50-5.40) Hemoglobin 11.3 g/dL (12.0-15.5) Hematocrit 34.5 % (36.0-47.0) Mean Corpuscular Volume 89 fL (79-100) Mean Corpuscular Hemoglobin 29 pg (25-35) Mean Corpuscular Hemoglobin Concent 33 g/dL (31-37) Red Cell Distribution Width 14.3 % (11.5-14.5) Platelet Count 213 x10^3/uL (140-400) Neutrophils (%) (Auto) 70 % (31-73) Lymphocytes (%) (Auto) 20 % (24-48) Monocytes (%) (Auto) 7 % (0-9) Eosinophils (%) (Auto) 2 % (0-3) Basophils (%) (Auto) 1 % (0-3) Neutrophils # (Auto) 5.4 x10^3/uL (1.8-7.7) Lymphocytes # (Auto) 1.6 x10^3/uL (1.0-4.8) Monocytes # (Auto) 0.6 x10^3/uL (0.0-1.1) Eosinophils # (Auto) 0.1 x10^3/uL (0.0-0.7) Basophils # (Auto) 0.1 x10^3/uL (0.0-0.2) Sodium Level 142 mmol/L (136-145) Potassium Level 4.4 mmol/L (3.5-5.1) Chloride Level 105 mmol/L (98-107) Carbon Dioxide Level 32 mmol/L (21-32) Anion Gap 5 (6-14) Blood Urea Nitrogen 20 mg/dL (7-20) Creatinine 0.8 mg/dL (0.6-1.0) Estimated GFR (Cockcroft-Gault) 70.3 Glucose Level 102 mg/dL (70-99) Calcium Level 8.7 mg/dL (8.5-10.1) Triglycerides Level 112 mg/dL (0-150) Cholesterol Level 149 mg/dL (0-200) LDL Cholesterol, Calculated 64 mg/dL (0-100) VLDL Cholesterol, Calculated 22 mg/dL (0-40) Non-HDL Cholesterol Calculated 86 mg/dL (0-129) HDL Cholesterol 63 mg/dL (40-60) Cholesterol/HDL Ratio 2.4 Laboratory Tests Test 11/26/19 18:15 11/27/19 05:00 Troponin I Quantitative < 0.017 ng/mL (0.000-0.055) Thyroid Stimulating Hormone (TSH) 1.619 uIU/mL (0.358-3.74) White Blood Count 7.7 x10^3/uL (4.0-11.0) Red Blood Count 3.87 x10^6/uL (3.50-5.40) Hemoglobin 11.3 g/dL (12.0-15.5) Hematocrit 34.5 % (36.0-47.0) Mean Corpuscular Volume 89 fL (79-100) Mean Corpuscular Hemoglobin 29 pg (25-35) Mean Corpuscular Hemoglobin Concent 33 g/dL (31-37) Red Cell Distribution Width 14.3 % (11.5-14.5) Platelet Count 213 x10^3/uL (140-400) Neutrophils (%) (Auto) 70 % (31-73) Lymphocytes (%) (Auto) 20 % (24-48) Monocytes (%) (Auto) 7 % (0-9) Eosinophils (%) (Auto) 2 % (0-3) Basophils (%) (Auto) 1 % (0-3) Neutrophils # (Auto) 5.4 x10^3/uL (1.8-7.7) Lymphocytes # (Auto) 1.6 x10^3/uL (1.0-4.8) Monocytes # (Auto) 0.6 x10^3/uL (0.0-1.1) Eosinophils # (Auto) 0.1 x10^3/uL (0.0-0.7) Basophils # (Auto) 0.1 x10^3/uL (0.0-0.2) Sodium Level 142 mmol/L (136-145) Potassium Level 4.4 mmol/L (3.5-5.1) Chloride Level 105 mmol/L (98-107) Carbon Dioxide Level 32 mmol/L (21-32) Anion Gap 5 (6-14) Blood Urea Nitrogen 20 mg/dL (7-20) Creatinine 0.8 mg/dL (0.6-1.0) Estimated GFR (Cockcroft-Gault) 70.3 Glucose Level 102 mg/dL (70-99) Calcium Level 8.7 mg/dL (8.5-10.1) Triglycerides Level 112 mg/dL (0-150) Cholesterol Level 149 mg/dL (0-200) LDL Cholesterol, Calculated 64 mg/dL (0-100) VLDL Cholesterol, Calculated 22 mg/dL (0-40) Non-HDL Cholesterol Calculated 86 mg/dL (0-129) HDL Cholesterol 63 mg/dL (40-60) Cholesterol/HDL Ratio 2.4 Brief Hospital Course History of Present Illness Ms Rosales 74 yo female w/ PMHx AFIB (), CAD (reported mild), HTN, Hyperlipidemia, GERD, hiatal hernia, Anxiety, Depression, OA who comes to ED for complains of chest pain. Left sided sharp pain sudden onset at 9 AM that lasted a few minutes, but then she started having numbness in her jaw that lasted about 4-5 hours. Reports no nausea vomiting, bloating. No significant leg swelling no PND or orthopnea. She has recently noted some dyspnea on exertion. No TMJ and no pain with JAW ROM. Denies any VOGEL. 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 She has suffered from stress and anxiety as her son had previously been her roommate and he had her evicted from his apartment which is led to her current living situation. Has a father with CAD and notes her ex- had the same symptoms 7 weeks before he after a CABG. Normal cardiac cath in 2010. Labs significant for WBC 9.4, Hb 12.8, platelets 261, NA 139, K4.8, BUN 23, CR 0.7, glucose 114, BNP 143, troponin negative EKG - normal sinus rhythm with rate of 69 bpm, NAD, TWI aVL, no ST elevations Admitted for observation for chest pain admitted at the behest of her construction equipment mechanic. Patient admitted for cardiac enzymes trending with negative results, she underwent a stress test with negative results, echo was done with results below on this report. She was deemed appropriate for discharge and she is in good spirits to be going home she has an appointment with her construction equipment mechanic in early December, Recs from golf tournament consultant as follows: Recommendations 1. Continue with secondary prevention measures. 2. Continue multaq for rhythm maintenance 3. August DC and follow up with Dr. Trimble on January 04 at 1:15 PM Lung clear to auscultation CVS s1s2 rr no murmur Assessment Assessment <Conclusion> The left ventricle is normal size. The left ventricular systolic function is normal and the ejection fraction is w ithin normal range. The Ejection Fraction is 55-60%. There is mild concentric left ventricular hypertrophy. Doppler and Color Flow revealed no significant aortic regurgitation. There is no significant aortic valvular stenosis. Doppler and Color Flow revealed trace mitral valve regurgitation. Doppler and Color Flow revealed trace tricuspid regurgitation. The PA pressure was estimated at 26 mmHg. Signed by : Isaac Trimble MD Electronically Approved : 11/27/2019 12:57:35 Discharge Information Condition at Discharge: Improved Follow Up: Weeks Disposition/Orders: D/C to Home Scheduled Aspirin (Aspir 81) 81 Mg Tablet.dr, 81 MG PO DAILY, (Reported) Entered as Reported by: AIDE GAN on 11/06/13 1434 Last Action: Continued on 11/26/191744 by YOBANY GONZALEZ MD Atorvastatin Calcium (Atorvastatin Calcium) 20 Mg Tablet, 20 MG PO HS for FOR CHOLESTEROL, #30 Ref 0 (Reported) Entered as Reported by: AIDE GAN on 11/06/13 143 Last Action: Continued on 11/26/191744 by YOBANY GONZALEZ MD Buspirone Hcl (Buspirone Hcl) 10 Mg Tablet, 10 MG PO BID for 30 Days, #60 Ref 6 Prescribed by: NANETTE HSIEH on 02/06/17 1313 Last Action: Continued on 11/26/191744 by YOBANY GONZALEZ MD Cholecalciferol (Vitamin D3) (D3-50) 50,000 Unit Capsule, 10,000 UNIT PO DAILY for supplement, (Reported) Entered as Reported by: ROSIE ONEILL on 11/26/191741 Last Taken: Unknown Dose on 11/26/19 Last Action: Converted on 11/26/191744 by YOBANY GONZALEZ MD Diltiazem Hcl (Diltiazem 24HR Cd) 180 Mg Cap.er.24h, 360 MG PO DAILY, (Reported) Entered as Reported by: Mel Walker on 07/23/16 1023 Last Action: Continued on 11/26/191744 by YOBANY GONZALEZ MD Dronedarone Hcl (Multaq) 400 Mg Tablet, 1 TAB PO BID for HTN, #180 Ref 3 (R eported) Entered as Reported by: ROSIE ONEILL on 11/26/191741 Last Taken: Unknown Dose on 11/26/19 Last Action: Continued on 11/26/191744 by YOBANY GONZALEZ MD Duloxetine Hcl (Cymbalta) 60 Mg Capsule.dr, 1 CAP PO DAILY, #90 Ref 3 (Reported) Entered as Reported by: KELSIE OCONNOR on 09/23/15 0727 Last Action: Converted on 11/26/191744 by YOBANY GONZALEZ MD Fluticasone/Vilanterol (Breo Ellipta 100-25 Mcg Inh) 1 Each Aer.pow.ba, 1 PUFF IH DAILY, (Reported) Entered as Reported by: Derek Richard on 07/20/16 2209 Last Action: Converted on 11/26/191744 by YOBANY GONZALEZ MD Losartan Potassium (Losartan Potassium ) 25 Mg Tablet, 100 MG PO DAILY for 30 Days, #120 Ref 6 Prescribed by: NANETTE HSIEH on 02/06/17 1313 Last Action: Continued on 11/26/191744 by YOBANY GONZALEZ MD Omeprazole (Omeprazole) 40 Mg Capsule.dr, 1 CAP PO DAILY, #30 Ref 3 (Reported) Entered as Reported by: MADIE WOODARD on 06/19/17 0718 Last Action: Converted on 11/26/191744 by YOBANY GONZALEZ MD Trazodone Hcl (Trazodone Hcl) 50 Mg Tablet, 50 MG PO HS, (Reported) Entered as Reported by: AIDE GAN on 11/06/13 1434 Last Action: Continued on 11/26/191744 by YOBANY GONZALEZ MD Scheduled PRN Albuterol Sulfate (Proair Hfa Inhaler) 8.5 Gm Hfa.aer.ad, 2 PUFF INH PRN Q4HRS PRN for SEE COMMENTS, Ref 0 (Reported) Entered as Reported by: Dave Sheffield on 11/06/132115 Last Action: Continued on 11/26/191744 by YOBANY GONZALEZ MD Alprazolam (Alprazolam) 0.25 Mg Tablet, 0.25 MG PO PRN Q6HRS PRN for ANXIETY / AGITATION, Ref 0 (Reported) Entered as Reported by: ERICKA MAURICE on 09/22/15 1636 Last Action: Continued on 11/26/191744 by YOBANY GONZALEZ MD Hydrocodone Bit/Acetaminophen (Hydrocodone-Apap 7.5-325 ) 1 Each Tablet, 1 TAB PO PRN Q6HRS PRN for PAIN, Ref 0 (Reported) Entered as Reported by: Doug Ashley on 04/07/152037 Last Action: Reviewed on 11/26/191741 by ROSIE ONEILL Justicifation of Admission Dx: Justifications for Admission: Justification of Admission Dx: Yes ORTEGA BARILLAS MD Nov 27, 2019 17:18
== END 2019-11-27 16:42 | disposition home or self-care (01) ==
LOC: ER 12:08 → INTOOBSV 14:11 → 2 SOUTH 14:11
PROVIDERS: ADMIT Internal Medicine; ATTEND Internal Medicine
DX: R07.89 Other chest pain (principal); I10 Essential (primary) hypertension; I25.10 Atherosclerotic heart disease of native coronary artery without angina pectoris; R68.84 Jaw pain; K21.9 Gastro-esophageal reflux disease without esophagitis; I48.0 Paroxysmal atrial fibrillation; K44.9 Diaphragmatic hernia without obstruction or gangrene; M17.0 Bilateral primary osteoarthritis of knee; M81.0 Age-related osteoporosis without current pathological fracture; J45.909 Unspecified asthma, uncomplicated; F41.9 Anxiety disorder, unspecified; F32.9 Major depressive disorder, single episode, unspecified; E78.5 Hyperlipidemia, unspecified; E78.00 Pure hypercholesterolemia, unspecified; E66.01 Morbid (severe) obesity due to excess calories; R16.0 Hepatomegaly, not elsewhere classified; Z90.49 Acquired absence of other specified parts of digestive tract; Z90.710 Acquired absence of both cervix and uterus; Z79.82 Long term (current) use of aspirin; Z87.891 Personal history of nicotine dependence; Z79.899 Other long term (current) drug therapy; Z68.41 Body mass index [BMI] 40.0-44.9, adult
CPT/HCPCS: 36415; 70450; 71045; 78452; 80048; 80053; 80061; 82962; 83880; 84443; 84484; 85025; 93005; 93017; 93306; 94640; 94760; 96372; 99285; A9500; G0378; J1650; J2785; G0379; J7613; J7626

== ENCOUNTER 2021-02-01 23:05 | Inpatient (IN) | payer MEDICARE, OTHER ==
[~2021-02-01] VITALS: Ht 154.9 cm; Wt 109.0 kg
[~2021-02-01 23:05] MED LIST changes: +CHOL500021 PO; -DRON400T PO; +DRON400T6 PO; -DULO60CA6 PO; +DULO60CA7 PO; -LISI-334 PO; +LISI10TA16 PO; -LISI10TA2 PO; +LISI20TA18 PO; -OMEP40CA45 PO; +OMEP40CA7 PO
[2021-02-02] MEDS ORDERED: ONDANSETRON PF 4 MG/2 ML VIAL. IVP ONE (02:15)
[2021-02-02] MEDS ORDERED: MORPHINE SULFATE 4 MG/ML INJ. IVP ONE (02:30)
[2021-02-02] MEDS ORDERED: MORPHINE SULFATE 2 MG/ML INJ. IVP ONE ×2 (03:15→04:15)
--- NOTE | 2021-02-02 03:18 | RAD ---
Examination: CT of the abdomen pelvis without contrast HISTORY: History of nausea, vomiting, abdominal pain COMPARISON: 06/04/2017 TECHNIQUE: Axial CT images of the abdomen pelvis are performed without contrast. Coronal and sagittal reformats are performed Exposure: One or more of the following individualized dose reduction techniques were utilized for thi s examination: 1. Automated exposure control 2. Adjustment of the mA and/or kV according to patient size 3. Use of iterative reconstruction technique FINDINGS: The bibasilar lungs are clear. No evidence of free air identified in the abdomen. The evaluation of the solid organs is limited due to lack of IV contrast. The evaluation of bowel is limited due to lac k of oral contrast. The visualized noncontrasted liver, spleen, adrenals grossly appears unremarkable . Cholecystectomy changes. The stomach is mildly distended with visualized pancreas grossly appears u nremarkable. The small bowel is nondilated Combination of stool and liquid stool identified in the colon distended mildly dilated colon identifi ed throughout the level of the sigmoid colon.. Urinary bladder is mildly distended No evidence of intrarenal collecting system calculi or hydronephrosis. There is cystic structure iden tified in the left kidney measuring 4.2 cm probably a cyst. Moderate degenerative changes thoracolumb ar spine. IMPRESSION: 1. Combination of stool and liquid stool identified in the colon distended or mildly dilated colon i dentified throughout the level of the sigmoid colon. Differential includes colonic ileus or stricture in the sigmoid colon. 2. 4.2 cm cystic structure identified in the left kidney probably a cyst. Electronically signed by: Raymond Monaco MD (02/02/2021 3:16 AM) [id number]
--- NOTE | 2021-02-02 03:30 | PHYS DOC ---
Past Medical History Past Medical History: A-Fib, Arthritis, Asthma, CAD, Depression, High Cho lesterol, Hypertension, Other Additional Past Medical Histor: Osteoporosis Past Surgical History: Appendectomy, Cholecystectomy, Hysterectomy, Tonsillectomy, Other Additional Past Surgical Histo: R Arm w/ hardware,CARDIOVERSION Smoking Status: Never Smoker Alcohol Use: None Drug Use: None General Adult EDM: Chief Complaint: CONSTIPATION HPI: HPI: Patient is a 76 year old female with a history of multiple abdominal surgeries including hysterectomy, appendectomy, cholecystectomy who presents with 7-8 days of constipation now with nausea, vomiting, and diffuse abdominal pain. Nausea, vomiting, pain started last night. Previously had just had constipation. Had been passing gas until last night as well. Is been vomiting frequently. Reduced appetite. Denies fever/chills. No dysuria, urgency, frequency. No flank pain. Review of Systems: Review of Systems: Constitutional: Denies fever or chills. [] Eyes: Denies change in visual acuity. [] HENT: Denies nasal congestion or sore throat. [] Respiratory: Denies cough or shortness of breath. [] Cardiovascular: Denies chest pain or edema. [] GI: Reports abdominal pain, nausea, vomiting, and constipation. Denies bloody stools or diarrhea. [] : Denies dysuria. [] Musculoskeletal: Denies back pain or joint pain. [] Integument: Denies rash. [] Neurologic: Denies headache, focal weakness or sensory changes. [] Endocrine: Denies polyuria or polydipsia. [] Lymphatic: Denies swollen glands. [] Psychiatric: Denies depression or anxiety. [] Heart Score: C/O Chest Pain: No Current Medications: Current Medications Medications (Trade) Dose Ordered Sig/Dev Start Time Stop Time Status Last Admin Dose Admin Morphine Sulfate (Morphine Sulfate) 2 mg 1X ONCE 02/02/21 03:15 02/02/21 03:16 DC 02/02/21 03:11 2 MG Ondansetron HCl (Zofran) 4 mg 1X ONCE 02/02/21 02:15 02/02/21 02:16 DC 02/02/21 02:15 4 MG Allergies: Allergies: Allergies Coded Allergies Type Severity Reaction Last Updated Verified iodine Allergy Severe Anaphylaxis 06/19/17 Yes iodine Allergy Severe anaphylaxis, throat swelling and difficulty breathing 06/19/17 No shellfish derived Allergy Severe Anaphylaxis 06/19/17 Yes Sulfa (Sulfonamide Antibiotics) Allergy Intermediate Swelling, pain in neck 06/19/17 Yes Physical Exam: PE: Constitutional: Ill-appearing, in no acute distress, retching. HENT: Normocephalic, atraumatic, Eyes: PERRLA, EOMI, conjunctiva normal, no discharge. [] Neck: Normal range of motion, no tenderness, supple, no stridor. [] Cardiovascular:Heart rate regular rhythm, no murmur [] Lungs & Thorax: Bilateral breath sounds clear to auscultation [] Abdomen: Distended abdomen is diffusely tender to palpation with rebound and guarding. Skin: Warm, dry, no erythema, no rash. [] Back: No tenderness, no CVA tenderness. [] Extremities: No tenderness, no cyanosis, no clubbing, ROM intact, no edema. [] Neurologic: Alert and oriented X 3, normal motor function, normal sensory function, no focal deficits noted. [] Psychologic: Affect normal, judgement normal, mood normal. [] Current Patient Data: Vital Signs: Vital Signs Date Time Temp Pulse Resp B/P (MAP) Pulse Ox O2 Delivery O2 Flow Rate FiO2 02/02/21 03:11 100 02/02/21 03:05 69 22 161/80 (107) Room Air 02/02/21 01:29 97.7 97.7 EKG: EKG: [] Radiology/Procedures: Radiology/Procedures: [] Impression: [facility] [address] [place] [address] IMAGING REPORT Signed PATIENT: MIGUEL DICKSON LACCOUNT: [id number] : 1945 LOCATION: ER AGE: 76 SEX: F EXAM STATUS: REG ER ORD. PHYSICIAN: PATITO MONTE MD REASON: sbo suspected, no bm, n/v, abd pain and distension PROCEDURE: CT ABDOMEN PELVIS WO CONTRAST Examination: CT of the abdomen pelvis without contrast HISTORY: History of nausea, vomiting, abdominal pain COMPARISON: 06/04/2017 TECHNIQUE: Axial CT images of the abdomen pelvis are performed without contrast. Coronal and sagittal reformats are performed Exposure: One or more of the following individualized dose reduction techniques were utilized for this examination: 1. Automated exposure control 2. Adjustment of the mA and/or kV according to patient size 3. Use of iterative reconstruction technique FINDINGS: The bibasilar lungs are clear. No evidence of free air identified in the abdomen. The evaluation of the solid organs is limited due to lack of IV contrast. The evaluation of bowel is limited due to lack of oral contrast. The visualized noncontrasted liver, spleen, adrenals grossly appears unremarkable. Cholecystectomy changes. The stomach is mildly distended with visualized pancreas grossly appears unremarkable. The small bowel is nondilated Combination of stool and liquid stool identified in the colon distended mildly dilated colon identified throughout the level of the sigmoid colon.. Urinary bladder is mildly distended No evidence of intrarenal collecting system calculi or hydronephrosis. There is cystic structure identified in the left kidney measuring 4.2 cm probably a cyst. Moderate degenerative changes thoracolumbar spine. IMPRESSION: 1. Combination of stool and liquid stool identified in the colon distended or mildly dilated colon identified throughout the level of the sigmoid colon. Differential includes colonic ileus or stricture in the sigmoid colon. 2. 4.2 cm cystic structure identified in the left kidney probably a cyst. Electronically signed by: Raymond Monaco MD (02/02/2021 3:16 AM) [id number] DICTATED and SIGNED BY: RAYMOND MONACO MD DATE: 02/02/21 [id number] Course & Med Decision Making: Course & Med Decision Making Pertinent Labs and Imaging studies reviewed. (See chart for details) Patient is 76-year-old female with history of multiple abdominal surgeries presents with 7-8 days of constipation and 1 day of acute onset pain, nausea, vomiting, and abdominal distention. Concern for obstruction primarily. CT shows concerns for colonic ileus versus stricture of the sigmoid colon. Patient is required multiple doses of IV narcotics for pain control. Will require admission for ongoing management. Dragon Disclaimer: Dragon Disclaimer: This electronic medical record was generated, in whole or in part, using a voice recognition dictation system. Departure Departure Impression: Primary Impression: Dilatation of colon Additional Impression: Abdominal pain Disposition: ADMITTED INPATIENT Admitting Physician: DIEGO ([place]) Condition: STABLE Referrals: AIDE WILL MD (PCP) PATITO MONTE MD Feb 02, 2021 03:30
[2021-02-02 03:43] LABS: BASO # 0.1 x10^3/uL (0.0-0.2); BASO % 1 % (0-3); EOS % 0 % (0-3); HEMATOCRIT 36.4 % (36.0-47.0); LYMPH # 0.7 x10^3/uL (1.0-4.8); LYMPH % 6 % (24-48); MEAN CORPUSCULAR HEMOGLOBIN 29 pg (25-35); MEAN CORPUSCULAR HGB CONC 33 g/dL (31-37); MEAN CORPUSCULAR VOLUME 87 fL (79-100); MONO # 0.6 x10^3/uL (0.0-1.1); MONO % 5 % (0-9); NEUT # 9.9 x10^3/uL (1.8-7.7); NEUT % 88 % (31-73); PLATELET COUNT 260 x10^3/uL (140-400); RED BLOOD COUNT 4.18 x10^6/uL (3.50-5.40); WHITE BLOOD COUNT 11.3 x10^3/uL (4.0-11.0)
[2021-02-02 03:50] LABS: CREATININE 0.7 mg/dL (0.6-1.0); GFR 81.6; POTASSIUM 3.7 mmol/L (3.5-5.1)
[2021-02-02 03:56] LABS: ALBUMIN 3.5 g/dL (3.4-5.0); TOTAL BILIRUBIN 0.7 mg/dL (0.2-1.0)
[2021-02-02 05:58] LABS: BILIRUBIN,URINE MODERATE (NEG); CLARITY,URINE CLEAR; NITRITE,URINE POSITIVE (NEG); PH,URINE 6.5 (<5.0-8.0); PROTEIN,URINE 100 mg/dL (NEG-TRACE)
[2021-02-02 06:04] LABS: COLOR,URINE AMBER
[2021-02-02 06:06] LABS: BACTERIA,URINE FEW /HPF (0-FEW); RBC,URINE 0 /HPF (0-2)
[2021-02-02 07:00] VITALS: BP 144/57
--- NOTE | 2021-02-02 08:22 | PDOC1 ---
History and Physical Date of Admission Date of Admission DATE: 02/02/21 TIME: 08:22 Identification/Chief Complaint Chief Complaint Nausea and vomiting Source Source: Patient History of Present Illness History of Present Illness Ms Rosales 74 yo female w/ PMHx AFIB (), CAD (reported mild), HTN, Hyperlipidemia, GERD, hiatal hernia, Anxiety, Depression, OA who comes to ED for complains of 8 days of constipation with sudden vomiting night of 02/01. Now with diffuse abdominal pain, colicky, 11/15. Vomiting frequently. Reduced appetite. Denies fever/chills. No dysuria, urgency, frequency. No flank pain. CT abdomen/pelvis with combination of stool and liquid stool identified in the colon distended or mildly dilated colon identified throughout the level of the sigmoid colon. WBC 11.3, Hb 12, platelets 260, NA 140, K3.7, BUN 18, CR 0.7, glucose 130, LFTs within normal laboratory limits, urinalysis trace leuk esterase positive nitrates. Admitted for further care with GI and general surgery consultation Past Medical History Cardiovascular: AFIB, CAD, HTN, Hyperlipidemia Pulmonary: Other CENTRAL NERVOUS SYSTEM: Other GI: GERD, Other Heme/Onc: No pertinent hx Hepatobiliary: Other Psych: Anxiety, Depression Musculoskeletal: Other Rheumatologic: Rheumatoid arthritis Renal/: No pertinent hx Endocrine: Osteoporosis Past Surgical History Past Surgical History: Appendectomy, Cholecystectomy, Tonsillectomy, Hysterectomy, Other Family History Family History: Coronary Artery Disease, Hypertension Social History Smoke: No ALCOHOL: none Drugs: None Current Problem List Problem List Problems Medical Problems: (1) Abdominal pain Status: Acute (2) Dilatation of colon Status: Acute Current Medications Current Medications Current Medications Ondansetron HCl (Zofran) 4 mg 1X ONCE IVP Last administered on 02/02/21at 02:15; Start 02/02/21 at 02:15; Stop 02/02/21 at 02:16; Status DC Morphine Sulfate (Morphine Sulfate) 4 mg 1X ONCE IVP Last administered on 02/02/21at 02:27; Start 02/02/21 at 02:30; Stop 02/02/21 at 02:31; Status DC Morphine Sulfate (Morphine Sulfate) 2 mg 1X ONCE IVP Last administered on 02/02/21at 03:11; Start 02/02/21 at 03:15; Stop 02/02/21 at 03:16; Status DC Morphine Sulfate (Morphine Sulfate) 2 mg 1X ONCE IVP Last administered on 02/02/21at 04:11; Start 02/02/21 at 04:15; Stop 02/02/21 at 04:16; Status DC Ascorbic Acid (Vitamin C) 1,000 mg DAILY PO ; Start 02/02/21 at 09:00; Status UNV Vitamin B Complex (Heath B) 1 tab DAILY PO ; Start 02/02/21 at 09:00; Status UNV Active Scripts Active Buspirone Hcl 10 Mg Tablet 10 Mg PO BID 30 Days Losartan Potassium (Losartan Potassium) 25 Mg Tablet 100 Mg PO DAILY 30 Days Reported D3-50 (Cholecalciferol (Vitamin D3)) 50,000 Unit Capsule 10,000 Unit PO DAILY Multaq (Dronedarone Hcl) 400 Mg Tablet 1 Tab PO BID Omeprazole 40 Mg Capsule.dr 1 Cap PO DAILY Diltiazem 24HR Cd (Diltiazem Hcl) 180 Mg Cap.er.24h 360 Mg PO DAILY Breo Ellipta 100-25 Mcg Inh (Fluticasone/Vilanterol) 1 Each Aer.pow.ba 1 Puff IH DAILY Cymbalta (Duloxetine Hcl) 60 Mg Capsule.dr 1 Cap PO DAILY Alprazolam 0.25 Mg Tablet 0.25 Mg PO PRN Q6HRS PRN Hydrocodone-Apap 7.5-325 (Hydrocodone Bit/Acetaminophen) 1 Each Tablet 1 Tab PO PRN Q6HRS PRN Proair Hfa Inhaler (Albuterol Sulfate) 8.5 Gm Hfa.aer.ad 2 Puff INH PRN Q4HRS PRN Atorvastatin Calcium 20 Mg Tablet 20 Mg PO HS Trazodone Hcl 50 Mg Tablet 50 Mg PO HS Aspir 81 (Aspirin) 81 Mg Tablet. 81 Mg PO DAILY Allergies Allergies: Coded Allergies: iodine (Verified Allergy, Severe, Anaphylaxis, 06/19/17) iodine (Unverified Allergy, Severe, anaphylaxis, throat swelling and difficulty breathing, 06/19/17) shellfish derived (Verified Allergy, Severe, Anaphylaxis, 06/19/17) Sulfa (Sulfonamide Antibiotics) (Verified Allergy, Intermediate, Swelling, pain in neck, 06/19/17) ROS General: YES: Fatigue, Malaise; No: Chills, Night Sweats, Appetite, Other PSYCHOLOGICAL ROS: No: Anxiety, Behavioral Disorder, Concentration difficultie, Decreased libido, Depression, Disorientation, Hallucinations, Hostility, Irritablity, Memory difficulties, Mood Swings, Obsessive thoughts, Physical abuse, Sexual abuse, Sleep disturbances, Suicidal ideation, Other Eyes: No Blurry vision, No Decreased vision, No Double vision, No Dry eyes, No Excessive tearing, No Eye Pain, No Itchy Eyes, No Loss of vision, No Photophobia, No Scotomata, No Uses contacts, No Uses glasses, No Other HEENT: No: Heacaches, Visual Changes, Hearing change, Nasal congestion, Nasal discharge, Oral lesions, Sinus pain, Sore Throat, Epistaxis, Sneezing, Snoring, Tinnitus, Vertigo, Vocal changes, Other ALLERGY AND IMMUNOLOGY: No: Hives, Insect Bite Sensitivity, Itchy/Watery Eyes, Nasal Congestion, Post Nasal Drip, Seasonal Allergies, Other Hematological and Lymphatic: No: Bleeding Problems, Blood Clots, Blood Transfusions, Brusing, Night Sweats, Pallor, Swollen Lymph Nodes, Other ENDOCRINE: No: Breast Changes, Galactorrhea, Hair Pattern Changes, Hot Flashes, Malaise/lethargy, Mood Swings, Palpitations, Polydipsia/polyuria, Skin Changes, Temperature Intolerance, Unexpected Weight Changes, Other Breast: No New/Changing Breast Lumps, No Nipple changes, No Nipple discharge, No Other Respiratory: No: Cough, Hemoptysis, Orthopnea, Pleuritic Pain, Shortness of br eath, SOB with excertion, Sputum Changes, Stridor, Tachypnea, Wheezing, Other Cardiovascular: No Chest Pain, No Palpitations, No Orthopnea, No Paroxysmal Noc. Dyspnea, No Edema, No Lt Headedness, No Other Gastrointestinal: Yes Nausea, Yes Vomiting, Yes Abdominal Pain; No Diarrhea, No Constipation, No Melena, No Hematochezia, No Other Genitourinary: No Dysuria, No Frequency, No Incontinence, No Hematuria, No Retention, No Discharge, No Urgency, No Pain, No Flank Pain, No Other, No , No , No , No , No , No , No Musculoskeletal: No Gait Disturbance, No Joint Pain, No Joint Stiffness, No Joint Swelling, No Muscle Pain, No Muscular Weakness, No Pain In:, No Swelling In:, No Other Neurological: No Behavorial Changes, No Bowel/Bladder ControlChng, No Confusion, No Dizziness, No Gait Disturbance, No Headaches, No Impaired Coord/balance, No Memory Loss, No Numbness/Tingling, No Seizures, No Speech Problems, No Tremors, No Visual Changes, No Weakness, No Other Skin: No Dry Skin, No Eczema, No Hair Changes, No Lumps, No Mole Changes, No Mottling, No Nail Changes, No Pruritus, No Rash, No Skin Lesion Changes, No Other, No Acne Physical Exam General: Alert, Oriented X3, Cooperative, No acute distress HEENT: Atraumatic, PERRLA, EOMI, Mucous membr. moist/pink Lungs: Clear to auscultation, Normal air movement Heart: S1S2, RRR, no thrills, no rubs Abdomen: Normal bowel sounds, Soft, No tenderness, No hepatosplenomegaly, No masses Extremities: No clubbing, No cyanosis, No edema, Normal pulses, No tenderness/swelling Skin: No rashes, No breakdown, No significant lesion Neuro: Normal gait, Normal speech, Strength at 5/5 X4 ext, Normal tone, Sensation intact, Cranial nerves 3-12 NL, Reflexes 2+ Psych/Mental Status: Mental status NL, Mood NL Vitals Vitals Vital Signs Date Time Temp Pulse Resp B/P (MAP) Pulse Ox O2 Delivery O2 Flow Rate FiO2 02/02/21 05:25 71 18 158/70 (99) 94 Room Air 02/02/21 04:09 2.0 02/02/21 01:29 97.7 97.7 Labs Labs Laboratory Tests Test 02/02/21 03:36 02/02/21 05:45 White Blood Count 11.3 x10^3/uL (4.0-11.0) Red Blood Count 4.18 x10^6/uL (3.50-5.40) Hemoglobin 12.0 g/dL (12.0-15.5) Hematocrit 36.4 % (36.0-47.0) Mean Corpuscular Volume 87 fL (79-100) Mean Corpuscular Hemoglobin 29 pg (25-35) Mean Corpuscular Hemoglobin Concent 33 g/dL (31-37) Red Cell Distribution Width 15.0 % (11.5-14.5) Platelet Count 260 x10^3/uL (140-400) Neutrophils (%) (Auto) 88 % (31-73) Lymphocytes (%) (Auto) 6 % (24-48) Monocytes (%) (Auto) 5 % (0-9) Eosinophils (%) (Auto) 0 % (0-3) Basophils (%) (Auto) 1 % (0-3) Neutrophils # (Auto) 9.9 x10^3/uL (1.8-7.7) Lymphocytes # (Auto) 0.7 x10^3/uL (1.0-4.8) Monocytes # (Auto) 0.6 x10^3/uL (0.0-1.1) Eosinophils # (Auto) 0.0 x10^3/uL (0.0-0.7) Basophils # (Auto) 0.1 x10^3/uL (0.0-0.2) Sodium Level 140 mmol/L (136-145) Potassium Level 3.7 mmol/L (3.5-5.1) Chloride Level 102 mmol/L (98-107) Carbon Dioxide Level 32 mmol/L (21-32) Anion Gap 6 (6-14) Blood Urea Nitrogen 18 mg/dL (7-20) Creatinine 0.7 mg/dL (0.6-1.0) Estimated GFR (Cockcroft-Gault) 81.6 BUN/Creatinine Ratio 26 (6-20) Glucose Level 130 mg/dL (70-99) Calcium Level 9.0 mg/dL (8.5-10.1) Total Bilirubin 0.7 mg/dL (0.2-1.0) Aspartate Amino Transf (AST/SGOT) 13 U/L (15-37) Alanine Aminotransferase (ALT/SGPT) 21 U/L (14-59) Alkaline Phosphatase 102 U/L (46-116) Total Protein 7.0 g/dL (6.4-8.2) Albumin 3.5 g/dL (3.4-5.0) Albumin/Globulin Ratio 1.0 (1.0-1.7) Urine Collection Type Unknown Urine Color Arabella Urine Clarity Clear Urine pH 6.5 (<5.0-8.0) Urine Specific [place] >=1.030 (1.000-1.030) Urine Protein 100 mg/dL (NEG-TRACE) Urine Glucose (UA) Negative mg/dL (NEG) Urine Ketones (Stick) 15 mg/dL (NEG) Urine Blood Negative (NEG) Urine Nitrite Positive (NEG) Urine Bilirubin Moderate (NEG) Urine Urobilinogen Dipstick 1.0 mg/dL (0.2 mg/dL) Urine Leukocyte Esterase Small (NEG) Urine RBC 0 /HPF (0-2) Urine WBC 5-10 /HPF (0-4) Urine Squamous Epithelial Cells Few /LPF Urine Bacteria Few /HPF (0-FEW) Urine Mucus Mod /LPF Laboratory Tests Test 02/02/21 03:36 02/02/21 05:45 White Blood Count 11.3 x10^3/uL (4.0-11.0) Red Blood Count 4.18 x10^6/uL (3.50-5.40) Hemoglobin 12.0 g/dL (12.0-15.5) Hematocrit 36.4 % (36.0-47.0) Mean Corpuscular Volume 87 fL (79-100) Mean Corpuscular Hemoglobin 29 pg (25-35) Mean Corpuscular Hemoglobin Concent 33 g/dL (31-37) Red Cell Distribution Width 15.0 % (11.5-14.5) Platelet Count 260 x10^3/uL (140-400) Neutrophils (%) (Auto) 88 % (31-73) Lymphocytes (%) (Auto) 6 % (24-48) Monocytes (%) (Auto) 5 % (0-9) Eosinophils (%) (Auto) 0 % (0-3) Basophils (%) (Auto) 1 % (0-3) Neutrophils # (Auto) 9.9 x10^3/uL (1.8-7.7) Lymphocytes # (Auto) 0.7 x10^3/uL (1.0-4.8) Monocytes # (Auto) 0.6 x10^3/uL (0.0-1.1) Eosinophils # (Auto) 0.0 x10^3/uL (0.0-0.7) Basophils # (Auto) 0.1 x10^3/uL (0.0-0.2) Sodium Level 140 mmol/L (136-145) Potassium Level 3.7 mmol/L (3.5-5.1) Chloride Level 102 mmol/L (98-107) Carbon Dioxide Level 32 mmol/L (21-32) Anion Gap 6 (6-14) Blood Urea Nitrogen 18 mg/dL (7-20) Creatinine 0.7 mg/dL (0.6-1.0) Estimated GFR (Cockcroft-Gault) 81.6 BUN/Creatinine Ratio 26 (6-20) Glucose Level 130 mg/dL (70-99) Calcium Level 9.0 mg/dL (8.5-10.1) Total Bilirubin 0.7 mg/dL (0.2-1.0) Aspartate Amino Transf (AST/SGOT) 13 U/L (15-37) Alanine Aminotransferase (ALT/SGPT) 21 U/L (14-59) Alkaline Phosphatase 102 U/L (46-116) Total Protein 7.0 g/dL (6.4-8.2) Albumin 3.5 g/dL (3.4-5.0) Albumin/Globulin Ratio 1.0 (1.0-1.7) Urine Collection Type Unknown Urine Color Arabella Urine Clarity Clear Urine pH 6.5 (<5.0-8.0) Urine Specific [place] >=1.030 (1.000-1.030) Urine Protein 100 mg/dL (NEG-TRACE) Urine Glucose (UA) Negative mg/dL (NEG) Urine Ketones (Stick) 15 mg/dL (NEG) Urine Blood Negative (NEG) Urine Nitrite Positive (NEG) Urine Bilirubin Moderate (NEG) Urine Urobilinogen Dipstick 1.0 mg/dL (0.2 mg/dL) Urine Leukocyte Esterase Small (NEG) Urine RBC 0 /HPF (0-2) Urine WBC 5-10 /HPF (0-4) Urine Squamous Epithelial Cells Few /LPF Urine Bacteria Few /HPF (0-FEW) Urine Mucus Mod /LPF Images Images CT of the abdomen pelvis without contrast: The bibasilar lungs are clear. No evidence of free air identified in the abdomen. The evaluation of the solid organs is limited due to lack of IV contrast. The evaluation of bowel is limited due to lack of oral contrast. The visualized noncontrasted liver, spleen, adrenals grossly appears unremarkable. Cholecystectomy changes. The stomach is mildly distended with visualized pancreas grossly appears unremarkable. The small bowel is nondilated Combination of stool and liquid stool identified in the colon distended mildly dilated colon identified throughout the level of the sigmoid colon.. Urinary bladder is mildly distended No evidence of intrarenal collecting system calculi or hydronephrosis. There is cystic structure identified in the left kidney measuring 4.2 cm probably a cyst. Moderate degenerative changes thoracolumbar spine. IMPRESSION: 1. Combination of stool and liquid stool identified in the colon distended or mildly dilated colon identified throughout the level of the sigmoid colon. Differential includes colonic ileus or stricture in the sigmoid colon. 2. 4.2 cm cystic structure identified in the left kidney probably a cyst. VTE Prophylaxis Ordered VTE Prophylaxis Devices: Yes VTE Pharmacological Prophylaxi: Yes Assessment/Plan Assessment/Plan A/P: Nausea and vomiting - with constipation, clinical ileus. NPO, GI and surgery consulted by ED Abdominal pain - from constipation HTN - controlled Remote h/o AFIB () - PAFIB: maintaining SR/SB lowest 50s HLD - cont statin Morbid obesity -also on weight loss diet and exercise CAD - mild in 2010, no past intervention GERD with hiatal hernia - H2 yannick therapy Anxiety, Depression - continue meds OA -bilateral knees, she knows she needs to lose weight prior to having any surgical interventions. FEN - npo PPX - ambulatory, lovenox FULL CODE Dispo - Inpatient Justifications for Admission Other Justification YOBANY GONZALEZ MD Feb 02, 2021 08:22
--- NOTE | 2021-02-02 08:58 | PDOC2 ---
CONSULT Date of Consult Date of Consult DATE: 02/02/21 TIME: 08:55 Reason for Consult Reason for Consult: ileus vs stricture Referring Physician Referring Physician: ER Identification/Chief Complaint Chief Complaint constipation Source Source: Chart review, Patient History of Present Illness Reason for Visit: constipation for a week. She reports long standing history with constipation issues. Does not routinely take any fiber, softeners, etc. Colonoscopy has been many years ago Currently feels better, less pain, having stool now, no nausea Past Medical History Cardiovascular: AFIB, CAD, HTN, Hyperlipidemia Pulmonary: Other CENTRAL NERVOUS SYSTEM: Other GI: GERD, Other Heme/Onc: No pertinent hx Hepatobiliary: Other Psych: Anxiety, Depression Musculoskeletal: Other Rheumatologic: Rheumatoid arthritis Renal/: No pertinent hx Endocrine: Osteoporosis Past Surgical History Past Surgical History: Appendectomy, Cholecystectomy, Tonsillectomy, Hysterectomy, Other Family History Family History: Coronary Artery Disease, Hypertension Social History ALCOHOL: none Drugs: None Lives: Alone Current Problem List Problem List Problems Medical Problems: (1) Abdominal pain Status: Acute (2) Dilatation of colon Status: Acute Current Medications Current Medications Current Medications Ondansetron HCl (Zofran) 4 mg 1X ONCE IVP Last administered on 02/02/21at 02:15; Start 02/02/21 at 02:15; Stop 02/02/21 at 02:16; Status DC Morphine Sulfate (Morphine Sulfate) 4 mg 1X ONCE IVP Last administered on 02/02/21at 02:27; Start 02/02/21 at 02:30; Stop 02/02/21 at 02:31; Status DC Morphine Sulfate (Morphine Sulfate) 2 mg 1X ONCE IVP Last administered on 02/02/21at 03:11; Start 02/02/21 at 03:15; Stop 02/02/21 at 03:16; Status DC Morphine Sulfate (Morphine Sulfate) 2 mg 1X ONCE IVP Last administered on 02/02/21at 04:11; Start 02/02/21 at 04:15; Stop 02/02/21 at 04:16; Status DC Ascorbic Acid (Vitamin C) 1,000 mg DAILY PO ; Start 02/02/21 at 09:00 Vitamin B Complex (Heath B) 1 tab DAILY PO ; Start 02/02/21 at 09:00 Active Scripts Active Buspirone Hcl 10 Mg Tablet 10 Mg PO BID 30 Days Losartan Potassium (Losartan Potassium) 25 Mg Tablet 100 Mg PO DAILY 30 Days Reported D3-50 (Cholecalciferol (Vitamin D3)) 50,000 Unit Capsule 10,000 Unit PO DAILY Multaq (Dronedarone Hcl) 400 Mg Tablet 1 Tab PO BID Omeprazole 40 Mg Capsule.dr 1 Cap PO DAILY Diltiazem 24HR Cd (Diltiazem Hcl) 180 Mg Cap.er.24h 360 Mg PO DAILY Breo Ellipta 100-25 Mcg Inh (Fluticasone/Vilanterol) 1 Each Aer.pow.ba 1 Puff IH DAILY Cymbalta (Duloxetine Hcl) 60 Mg Capsule.dr 1 Cap PO DAILY Alprazolam 0.25 Mg Tablet 0.25 Mg PO PRN Q6HRS PRN Hydrocodone-Apap 7.5-325 (Hydrocodone Bit/Acetaminophen) 1 Each Tablet 1 Tab PO PRN Q6HRS PRN Proair Hfa Inhaler (Albuterol Sulfate) 8.5 Gm Hfa.aer.ad 2 Puff INH PRN Q4HRS PRN Atorvastatin Calcium 20 Mg Tablet 20 Mg PO HS Trazodone Hcl 50 Mg Tablet 50 Mg PO HS Aspir 81 (Aspirin) 81 Mg Tablet. 81 Mg PO DAILY Allergies Allergies: Coded Allergies: iodine (Verified Allergy, Severe, Anaphylaxis, 06/19/17) iodine (Unverified Allergy, Severe, anaphylaxis, throat swelling and difficulty breathing, 06/19/17) shellfish derived (Verified Allergy, Severe, Anaphylaxis, 06/19/17) Sulfa (Sulfonamide Antibiotics) (Verified Allergy, Intermediate, Swelling, pain in neck, 06/19/17) ROS General: No: Chills, Other (fevers ) PSYCHOLOGICAL ROS: No: Anxiety, Depression Eyes: No Blurry vision, No Double vision HEENT: No: Heacaches, Sore Throat Hematological and Lymphatic: No: Bleeding Problems, Blood Clots Respiratory: No: Cough, Shortness of breath Cardiovascular: No Chest Pain, No Palpitations Gastrointestinal: Yes Other (see hpi) Genitourinary: No Dysuria, No Retention Musculoskeletal: No Joint Pain, No Muscle Pain Neurological: No Impaired Coord/balance, No Numbness/Tingling Skin: No Pruritus, No Rash Physical Exam General: Alert, Oriented X3, Cooperative HEENT: Atraumatic, PERRLA Lungs: Clear to auscultation, Normal air movement Heart: Regular rate, Normal S1, Normal S2 Abdomen: Soft, Other (mild ttp, ND) Extremities: No clubbing, No cyanosis Skin: No rashes, No breakdown Neuro: Normal gait, Normal speech Psych/Mental Status: Mental status NL, Mood NL MUSCULOSKELETAL: No deformity, No swelling Vitals VITALS Vital Signs Date Time Temp Pulse Resp B/P (MAP) Pulse Ox O2 Delivery O2 Flow Rate FiO2 02/02/21 07:00 98.4 65 18 144/57 (86) 92 98.4 02/02/21 05:25 Room Air 02/02/21 04:09 2.0 Labs Labs Laboratory Tests Test 02/02/21 03:36 02/02/21 05:45 White Blood Count 11.3 x10^3/uL (4.0-11.0) Red Blood Count 4.18 x10^6/uL (3.50-5.40) Hemoglobin 12.0 g/dL (12.0-15.5) Hematocrit 36.4 % (36.0-47.0) Mean Corpuscular Volume 87 fL (79-100) Mean Corpuscular Hemoglobin 29 pg (25-35) Mean Corpuscular Hemoglobin Concent 33 g/dL (31-37) Red Cell Distribution Width 15.0 % (11.5-14.5) Platelet Count 260 x10^3/uL (140-400) Neutrophils (%) (Auto) 88 % (31-73) Lymphocytes (%) (Auto) 6 % (24-48) Monocytes (%) (Auto) 5 % (0-9) Eosinophils (%) (Auto) 0 % (0-3) Basophils (%) (Auto) 1 % (0-3) Neutrophils # (Auto) 9.9 x10^3/uL (1.8-7.7) Lymphocytes # (Auto) 0.7 x10^3/uL (1.0-4.8) Monocytes # (Auto) 0.6 x10^3/uL (0.0-1.1) Eosinophils # (Auto) 0.0 x10^3/uL (0.0-0.7) Basophils # (Auto) 0.1 x10^3/uL (0.0-0.2) Sodium Level 140 mmol/L (136-145) Potassium Level 3.7 mmol/L (3.5-5.1) Chloride Level 102 mmol/L (98-107) Carbon Dioxide Level 32 mmol/L (21-32) Anion Gap 6 (6-14) Blood Urea Nitrogen 18 mg/dL (7-20) Creatinine 0.7 mg/dL (0.6-1.0) Estimated GFR (Cockcroft-Gault) 81.6 BUN/Creatinine Ratio 26 (6-20) Glucose Level 130 mg/dL (70-99) Calcium Level 9.0 mg/dL (8.5-10.1) Total Bilirubin 0.7 mg/dL (0.2-1.0) Aspartate Amino Transf (AST/SGOT) 13 U/L (15-37) Alanine Aminotransferase (ALT/SGPT) 21 U/L (14-59) Alkaline Phosphatase 102 U/L (46-116) Total Protein 7.0 g/dL (6.4-8.2) Albumin 3.5 g/dL (3.4-5.0) Albumin/Globulin Ratio 1.0 (1.0-1.7) Urine Collection Type Unknown Urine Color Arabella Urine Clarity Clear Urine pH 6.5 (<5.0-8.0) Urine Specific [place] >=1.030 (1.000-1.030) Urine Protein 100 mg/dL (NEG-TRACE) Urine Glucose (UA) Negative mg/dL (NEG) Urine Ketones (Stick) 15 mg/dL (NEG) Urine Blood Negative (NEG) Urine Nitrite Positive (NEG) Urine Bilirubin Moderate (NEG) Urine Urobilinogen Dipstick 1.0 mg/dL (0.2 mg/dL) Urine Leukocyte Esterase Small (NEG) Urine RBC 0 /HPF (0-2) Urine WBC 5-10 /HPF (0-4) Urine Squamous Epithelial Cells Few /LPF Urine Bacteria Few /HPF (0-FEW) Urine Mucus Mod /LPF Laboratory Tests Test 02/02/21 03:36 02/02/21 05:45 White Blood Count 11.3 x10^3/uL (4.0-11.0) Red Blood Count 4.18 x10^6/uL (3.50-5.40) Hemoglobin 12.0 g/dL (12.0-15.5) Hematocrit 36.4 % (36.0-47.0) Mean Corpuscular Volume 87 fL (79-100) Mean Corpuscular Hemoglobin 29 pg (25-35) Mean Corpuscular Hemoglobin Concent 33 g/dL (31-37) Red Cell Distribution Width 15.0 % (11.5-14.5) Platelet Count 260 x10^3/uL (140-400) Neutrophils (%) (Auto) 88 % (31-73) Lymphocytes (%) (Auto) 6 % (24-48) Monocytes (%) (Auto) 5 % (0-9) Eosinophils (%) (Auto) 0 % (0-3) Basophils (%) (Auto) 1 % (0-3) Neutrophils # (Auto) 9.9 x10^3/uL (1.8-7.7) Lymphocytes # (Auto) 0.7 x10^3/uL (1.0-4.8) Monocytes # (Auto) 0.6 x10^3/uL (0.0-1.1) Eosinophils # (Auto) 0.0 x10^3/uL (0.0-0.7) Basophils # (Auto) 0.1 x10^3/uL (0.0-0.2) Sodium Level 140 mmol/L (136-145) Potassium Level 3.7 mmol/L (3.5-5.1) Chloride Level 102 mmol/L (98-107) Carbon Dioxide Level 32 mmol/L (21-32) Anion Gap 6 (6-14) Blood Urea Nitrogen 18 mg/dL (7-20) Creatinine 0.7 mg/dL (0.6-1.0) Estimated GFR (Cockcroft-Gault) 81.6 BUN/Creatinine Ratio 26 (6-20) Glucose Level 130 mg/dL (70-99) Calcium Level 9.0 mg/dL (8.5-10.1) Total Bilirubin 0.7 mg/dL (0.2-1.0) Aspartate Amino Transf (AST/SGOT) 13 U/L (15-37) Alanine Aminotransferase (ALT/SGPT) 21 U/L (14-59) Alkaline Phosphatase 102 U/L (46-116) Total Protein 7.0 g/dL (6.4-8.2) Albumin 3.5 g/dL (3.4-5.0) Albumin/Globulin Ratio 1.0 (1.0-1.7) Urine Collection Type Unknown Urine Color Arabella Urine Clarity Clear Urine pH 6.5 (<5.0-8.0) Urine Specific [place] >=1.030 (1.000-1.030) Urine Protein 100 mg/dL (NEG-TRACE) Urine Glucose (UA) Negative mg/dL (NEG) Urine Ketones (Stick) 15 mg/dL (NEG) Urine Blood Negative (NEG) Urine Nitrite Positive (NEG) Urine Bilirubin Moderate (NEG) Urine Urobilinogen Dipstick 1.0 mg/dL (0.2 mg/dL) Urine Leukocyte Esterase Small (NEG) Urine RBC 0 /HPF (0-2) Urine WBC 5-10 /HPF (0-4) Urine Squamous Epithelial Cells Few /LPF Urine Bacteria Few /HPF (0-FEW) Urine Mucus Mod /LPF Assessment/Plan Assessment/Plan constipation-improved UTI-per IPC Ct with ileus, constipation, possible Sigmoid stricture--will ask Gi to eval, needs good bowel regimen, ? outpt scope CHICA CRAWLEY DIRECTOR MEDIA Feb 02, 2021 08:58
[2021-02-02] MEDS ORDERED: ASCORBIC ACID 1,000 MG TABLET PO SCH (09:00)
[2021-02-02] MEDS ORDERED: VITAMIN B COMPLEX TABLET. PO SCH (09:00)
[2021-02-02] MEDS ORDERED: POLYETHYLENE GLYCOL 3350 17 GM PACKET. PO SCH ×2 (09:15→21:00)
[2021-02-02] MEDS ORDERED: ALPRAZolam 0.25 MG TABLET PO PRN (09:15)
[2021-02-02] MEDS ORDERED: LOSARTAN POTASSIUM 25 MG TABLET. PO SCH (09:15)
[2021-02-02] MEDS ORDERED: DRONEDARONE HCL 400 MG TABLET PO SCH (09:15)
[2021-02-02] MEDS ORDERED: DOCUSATE SODIUM 100 MG CAPSULE. PO SCH (09:15)
[2021-02-02] MEDS ORDERED: ALBUTEROL SULFATE 2.5 MG/3 ML NEBU. INH PRN (09:15)
[2021-02-02] MEDS ORDERED: busPIRone 10 MG TABLET. PO SCH (09:15)
--- NOTE | 2021-02-02 10:44 | PDOC2 ---
GI CONSULT Date of Service: DATE: 02/02/21 TIME: 10:43 Reason For Consult: ileus, constipation, possible stricture HPI: HPI: 76 y/o female admitted through ER. Lifelong h/o constipation - never really treated except "my dad gave me an oil" as a child. Worse for several months w/ straining and hard stools, often associated w/ LLQ disocmfort. No stool for about a week - took Metamucil, Miralax, stool softeners, Dulcolax, MoM, Mag Citrate, and enema. To ER w/ abdominal discomfort and bloating. Now passing liquid stools w/ hard chunks and feeling much better. Tolerated clears for breakfast. "I don't want any more medicine." We are asked to see re: abnormal CT finding of possible colonic ileus or sigmoid stricture. H/o GERD controlled w/ omeprazole QD 30 min before fruit smoothie for breakfast. No dysphagia, n/v, hematochezia, melena, or change in appetite. Intentionally trying to lose weight w/ dietary changes - weight goal is 220 so she can have bilateral knee replacement. EGD by Dr. Rice in 06/2017 for ROXIE showed normal esophagus, chronic gastritis, normal duodenum. No biopsies. Colonoscopy by Dr. Rice in 01/2014 for change in bowel habits was unremarkable except for non-bleeding internal hemorrhoids. Had Hemoccult testing w/ Dr. Dumont earlier this year - was told "blood in stools" but she didn't follow-up because she never see any. S/p cholecystectomy ("one big stone"). Hepatosplenomegaly noted on past CT. No pancreas or PUD history. H/o CAD on ASA. PMH: PMH: A Fib s/p cardioversion, CAD, HTN, HLD, anxiety, depression, lung nodules, arthritis, osteoporosis right forearm fracture/repair, appendectomy, cholecystectomy, complete hysterectomy, hemorrhoidectomy FH: Family History: No pertinent hx (denies GI cancers), DM, Hypertension, Other ([place]) Social History: Smoke: Quit (remote) ALCOHOL: occassional (wine) Drugs: None ROS: GEN: Denies fevers, chills, sweats HEENT: Denies blurred vision, sore throat CV: Denies chest pain RESP: Denies shortness of air, cough GI: Per HPI : Denies hematuria, dysuria ENDO: +intentional weight loss NEURO: Denies confusion, dizziness MSK: +knee pain SKIN: Denies jaundice, pruritus Vitals: Vitals: Vital Signs Date Time Temp Pulse Resp B/P (MAP) Pulse Ox O2 Delivery O2 Flow Rate FiO2 02/02/21 07:00 98.4 65 18 144/57 (86) 92 98.4 02/02/21 05:25 Room Air 02/02/21 04:09 2.0 Labs: Labs: Laboratory Tests Test 02/02/21 03:36 02/02/21 05:45 White Blood Count 11.3 x10^3/uL (4.0-11.0) Red Blood Count 4.18 x10^6/uL (3.50-5.40) Hemoglobin 12.0 g/dL (12.0-15.5) Hematocrit 36.4 % (36.0-47.0) Mean Corpuscular Volume 87 fL (79-100) Mean Corpuscular Hemoglobin 29 pg (25-35) Mean Corpuscular Hemoglobin Concent 33 g/dL (31-37) Red Cell Distribution Width 15.0 % (11.5-14.5) Platelet Count 260 x10^3/uL (140-400) Neutrophils (%) (Auto) 88 % (31-73) Lymphocytes (%) (Auto) 6 % (24-48) Monocytes (%) (Auto) 5 % (0-9) Eosinophils (%) (Auto) 0 % (0-3) Basophils (%) (Auto) 1 % (0-3) Neutrophils # (Auto) 9.9 x10^3/uL (1.8-7.7) Lymphocytes # (Auto) 0.7 x10^3/uL (1.0-4.8) Monocytes # (Auto) 0.6 x10^3/uL (0.0-1.1) Eosinophils # (Auto) 0.0 x10^3/uL (0.0-0.7) Basophils # (Auto) 0.1 x10^3/uL (0.0-0.2) Sodium Level 140 mmol/L (136-145) Potassium Level 3.7 mmol/L (3.5-5.1) Chloride Level 102 mmol/L (98-107) Carbon Dioxide Level 32 mmol/L (21-32) Anion Gap 6 (6-14) Blood Urea Nitrogen 18 mg/dL (7-20) Creatinine 0.7 mg/dL (0.6-1.0) Estimated GFR (Cockcroft-Gault) 81.6 BUN/Creatinine Ratio 26 (6-20) Glucose Level 130 mg/dL (70-99) Calcium Level 9.0 mg/dL (8.5-10.1) Total Bilirubin 0.7 mg/dL (0.2-1.0) Aspartate Amino Transf (AST/SGOT) 13 U/L (15-37) Alanine Aminotransferase (ALT/SGPT) 21 U/L (14-59) Alkaline Phosphatase 102 U/L (46-116) Total Protein 7.0 g/dL (6.4-8.2) Albumin 3.5 g/dL (3.4-5.0) Albumin/Globulin Ratio 1.0 (1.0-1.7) Urine Collection Type Unknown Urine Color Arabella Urine Clarity Clear Urine pH 6.5 (<5.0-8.0) Urine Specific [place] >=1.030 (1.000-1.030) Urine Protein 100 mg/dL (NEG-TRACE) Urine Glucose (UA) Negative mg/dL (NEG) Urine Ketones (Stick) 15 mg/dL (NEG) Urine Blood Negative (NEG) Urine Nitrite Positive (NEG) Urine Bilirubin Moderate (NEG) Urine Urobilinogen Dipstick 1.0 mg/dL (0.2 mg/dL) Urine Leukocyte Esterase Small (NEG) Urine RBC 0 /HPF (0-2) Urine WBC 5-10 /HPF (0-4) Urine Squamous Epithelial Cells Few /LPF Urine Bacteria Few /HPF (0-FEW) Urine Mucus Mod /LPF Allergies: Coded Allergies: iodine (Verified Allergy, Severe, Anaphylaxis, 06/19/17) iodine (Unverified Allergy, Severe, anaphylaxis, throat swelling and difficulty breathing, 06/19/17) shellfish derived (Verified Allergy, Severe, Anaphylaxis, 06/19/17) Sulfa (Sulfonamide Antibiotics) (Verified Allergy, Intermediate, Swelling, pain in neck, 06/19/17) Medications: Current Medications Medications (Trade) Dose Ordered Sig/Dev Route PRN Reason Start Time Stop Time Status Last Admin Dose Admin Ondansetron HCl (Zofran) 4 mg 1X ONCE IVP 02/02/21 02:15 02/02/21 02:16 DC 02/02/21 02:15 Morphine Sulfate (Morphine Sulfate) 4 mg 1X ONCE IVP 02/02/21 02:30 02/02/21 02:31 DC 02/02/21 02:27 Morphine Sulfate (Morphine Sulfate) 2 mg 1X ONCE IVP 02/02/21 03:15 02/02/21 03:16 DC 02/02/21 03:11 Morphine Sulfate (Morphine Sulfate) 2 mg 1X ONCE IVP 02/02/21 04:15 02/02/21 04:16 DC 02/02/21 04:11 Imaging: Imaging: CT A/P IMPRESSION: 1. Combination of stool and liquid stool identified in the colon distended or mildly dilated colon identified throughout the level of the sigmoid colon. Differential includes colonic ileus or stricture in the sigmoid colon. 2. 4.2 cm cystic structure identified in the left kidney probably a cyst. PE: GEN: NAD HEENT: Atraumatic, PERRL LUNGS: CTAB HEART: RRR ABD: BS quiet but present, large, soft, mild/vague tenderness left mid abd/LLQ EXTREMITY: No edema SKIN: No rashes, no jaundice NEURO/PSYCH: A & O 3 A/P: A/P: Chronic constipation - worse recently UTI Abnormal CT - concern for colonic ileus vs sigmoid stricture GERD - controlled w/ PPI CRC screen - UTD (2013) Hemorrhoids S/p cholecystectomy Hepatosplenomegaly on previous CT H/o CAD on ASA Chronic knee pain -- Stooling and feeling better. Okay to advance diet per GI and consider discharge soon if tolerates. Would benefit from regular constipation treatment particularly if taking opioids at home w/ knee pain/limited mobility - would start w/ daily Miralax/adjusting as needed - many other options to try (even Rx) if needed - can address in follow-up. We will plan for outpt colonoscopy for further evaluation of CT findings and change in bowel habits - our office will call her to schedule. DEONDRE TORRES Feb 02, 2021 10:44
[2021-02-02 11:00] VITALS: BP 146/59
[2021-02-02] MEDS ORDERED: PANTOPRAZOLE 40 MG TABLET.DR. PO SCH (11:30)
[2021-02-02] MEDS ORDERED: LUBI8CAP4 PO (14:05)
--- NOTE | 2021-02-02 14:46 | NUR ---
Pt discharged home with selfcare. script sent over to the pharm that the pt gets her meds from and she was taken to the main entrance where she was taken home by her son. Rafael Bowser RN
[2021-02-02] MEDS ORDERED: traZODone 50 MG TABLET. PO SCH (21:00)
[2021-02-02] MEDS ORDERED: ATORVASTATIN CALCIUM 20 MG TABLET PO SCH (21:00)
[2021-02-03] MEDS ORDERED: ASPIRIN ENTERIC COATED 81 MG TABLET.DR. PO SCH (09:00)
--- NOTE | 2021-02-03 16:11 | PDOC3 ---
Discharge Summary Visit Information Date of Admission: Feb 02, 2021 Date of Discharge: Feb 02, 2021 Admitting Diagnosis: Ileus Final Diagnosis Problems Medical Problems: (1) Abdominal pain Status: Acute (2) Dilatation of colon Status: Acute Brief Hospital Course Allergies Allergies Coded Allergies Type Severity Reaction Last Updated Verified iodine Allergy Severe Anaphylaxis 06/19/17 Yes iodine Allergy Severe anaphylaxis, throat swelling and difficulty breathing 06/19/17 No shellfish derived Allergy Severe Anaphylaxis 06/19/17 Yes Sulfa (Sulfonamide Antibiotics) Allergy Intermediate Swelling, pain in neck 06/19/17 Yes Vital Signs Vital Signs Date Time Temp Pulse Resp B/P (MAP) Pulse Ox O2 Delivery O2 Flow Rate FiO2 02/02/21 12:12 98 Nasal Cannula 2.0 02/02/21 11:00 98.3 71 20 146/59 (88) 98.3 Lab Results Laboratory Tests Test 02/02/21 03:36 02/02/21 05:45 White Blood Count 11.3 x10^3/uL (4.0-11.0) Red Blood Count 4.18 x10^6/uL (3.50-5.40) Hemoglobin 12.0 g/dL (12.0-15.5) Hematocrit 36.4 % (36.0-47.0) Mean Corpuscular Volume 87 fL (79-100) Mean Corpuscular Hemoglobin 29 pg (25-35) Mean Corpuscular Hemoglobin Concent 33 g/dL (31-37) Red Cell Distribution Width 15.0 % (11.5-14.5) Platelet Count 260 x10^3/uL (140-400) Neutrophils (%) (Auto) 88 % (31-73) Lymphocytes (%) (Auto) 6 % (24-48) Monocytes (%) (Auto) 5 % (0-9) Eosinophils (%) (Auto) 0 % (0-3) Basophils (%) (Auto) 1 % (0-3) Neutrophils # (Auto) 9.9 x10^3/uL (1.8-7.7) Lymphocytes # (Auto) 0.7 x10^3/uL (1.0-4.8) Monocytes # (Auto) 0.6 x10^3/uL (0.0-1.1) Eosinophils # (Auto) 0.0 x10^3/uL (0.0-0.7) Basophils # (Auto) 0.1 x10^3/uL (0.0-0.2) Sodium Level 140 mmol/L (136-145) Potassium Level 3.7 mmol/L (3.5-5.1) Chloride Level 102 mmol/L (98-107) Carbon Dioxide Level 32 mmol/L (21-32) Anion Gap 6 (6-14) Blood Urea Nitrogen 18 mg/dL (7-20) Creatinine 0.7 mg/dL (0.6-1.0) Estimated GFR (Cockcroft-Gault) 81.6 BUN/Creatinine Ratio 26 (6-20) Glucose Level 130 mg/dL (70-99) Calcium Level 9.0 mg/dL (8.5-10.1) Total Bilirubin 0.7 mg/dL (0.2-1.0) Aspartate Amino Transf (AST/SGOT) 13 U/L (15-37) Alanine Aminotransferase (ALT/SGPT) 21 U/L (14-59) Alkaline Phosphatase 102 U/L (46-116) Total Protein 7.0 g/dL (6.4-8.2) Albumin 3.5 g/dL (3.4-5.0) Albumin/Globulin Ratio 1.0 (1.0-1.7) Urine Collection Type Unknown Urine Color Arabella Urine Clarity Clear Urine pH 6.5 (<5.0-8.0) Urine Specific [place] >=1.030 (1.000-1.030) Urine Protein 100 mg/dL (NEG-TRACE) Urine Glucose (UA) Negative mg/dL (NEG) Urine Ketones (Stick) 15 mg/dL (NEG) Urine Blood Negative (NEG) Urine Nitrite Positive (NEG) Urine Bilirubin Moderate (NEG) Urine Urobilinogen Dipstick 1.0 mg/dL (0.2 mg/dL) Urine Leukocyte Esterase Small (NEG) Urine RBC 0 /HPF (0-2) Urine WBC 5-10 /HPF (0-4) Urine Squamous Epithelial Cells Few /LPF Urine Bacteria Few /HPF (0-FEW) Urine Mucus Mod /LPF Brief Hospital Course Ms Rosales 74 yo female w/ PMHx AFIB (), CAD (reported mild), HTN, Hyperlipidemia, GERD, hiatal hernia, Anxiety, Depression, OA who comes to ED for complains of 8 days of constipation with sudden vomiting night of 02/01. Now with diffuse abdominal pain, colicky, 11/15. Vomiting frequently. Reduced appetite. Denies fever/chills. No dysuria, urgency, frequency. No flank pain. CT abdomen/pelvis with combination of stool and liquid stool identified in the colon distended or mildly dilated colon identified throughout the level of the sigmoid colon. WBC 11.3, Hb 12, platelets 260, NA 140, K3.7, BUN 18, CR 0.7, glucose 130, LFTs within normal laboratory limits, urinalysis trace leuk esterase positive nitrates. Admitted for further care with GI and general surgery consultation Upon digital stimulation patient had multiple stools with great relief. Observed throughout the day able to tolerate p.o. regular diet. Counseled on bowel hygiene fiber supplementation given prescription for Amitiza and outpatient follow-up with gastroenterology. Advised cut back opioid use to minimal to avoid future incidents. Repeat Physical exam HEENT: Head normocephalic, atraumatic. NECK: Supple LUNGS: Clear to auscultation. HEART: RRR, S1, S2 present, pulses intact ABDOMEN: Soft, positive bowel sounds. EXTREMITIES: No cyanosis or edema. NEUROLOGIC: Normal speech, normal tone PSYCHIATRIC: Normal affect, normal mood. SKIN: No ulceration. Nausea and vomiting - with constipation, clinical ileus. resolved Abdominal pain - from constipation HTN - controlled Remote h/o AFIB () - PAFIB: maintaining SR/SB lowest 50s HLD - cont statin Morbid obesity -also on weight loss diet and exercise CAD - mild in 2010, no past intervention GERD with hiatal hernia - H2 yannick therapy Anxiety, Depression - continue meds OA -bilateral knees, she knows she needs to lose weight prior to having any mcallister rgical interventions. Greater than 135 minutes spent on same day admit and d/c Discharge Information Condition at Discharge: Improved Follow Up: Weeks (1) Disposition/Orders: D/C to Home Scheduled Aspirin (Aspir 81) 81 Mg Tablet., 81 MG PO DAILY, (Reported) Entered as Reported by: AIDE GAN on 11/06/13 2594 Last Action: Continued on 02/02/21 0904 by DAGO CROOKS Atorvastatin Calcium (Atorvastatin Calcium) 20 Mg Tablet, 20 MG PO HS for FOR CHOLESTEROL, #30 Ref 0 (Reported) Entered as Reported by: AIDE GAN on 11/06/13 1434 Last Action: Continued on 02/02/21903 by DAGO CROOKS Buspirone Hcl (Buspirone Hcl) 10 Mg Tablet, 10 MG PO BID for 30 Days, #60 Ref 6 Prescribed by: NANETTE HSIEH on 02/06/17 1313 Last Action: Continued on 02/02/21903 by DAGO CROOKS Cholecalciferol (Vitamin D3) (D3-50) 50,000 Unit Capsule, 10,000 UNIT PO DAILY for supplement, (Reported) Entered as Reported by: ROSIE ONEILL on 11/26/191741 Last Action: Reviewed on 02/02/21820 by MARINE ELIZALDE RN Diltiazem Hcl (Diltiazem 24HR Cd) 180 Mg Cap.er.24h, 360 MG PO DAILY, (Reported) Entered as Reported by: Mel Walker on 07/23/16 1023 Last Action: Continued on 02/02/21903 by DAGO CROOKS Dronedarone Hcl (Multaq) 400 Mg Tablet, 1 TAB PO BID for HTN, #180 Ref 3 (Reported) Entered as Reported by: ROSIE ONEILL on 11/26/191741 Last Action: Continued on 02/02/21903 by DAGO CROOKS Duloxetine Hcl (Cymbalta) 60 Mg Capsule.dr, 1 CAP PO DAILY, #90 Ref 3 (Reported) Entered as Reported by: KELSIE OCONNOR on 09/23/15 0727 Last Action: Reviewed on 02/02/21820 by MARINE ELIZALDE RN Fluticasone/Vilanterol (Breo Ellipta 100-25 Mcg Inh) 1 Each Aer.pow.ba, 1 PUFF IH DAILY, (Reported) Entered as Reported by: Derek Richard on 07/20/162208 Last Action: Reviewed on 02/02/21820 by MARINE ELIZALDE RN Losartan Potassium (Losartan Potassium ) 25 Mg Tablet, 100 MG PO DAILY for 30 Days, #120 Ref 6 Prescribed by: NANETTE HSIEH on 02/06/17 1313 Last Action: Continued on 02/02/21903 by DAGO CROOKS Omeprazole (Omeprazole) 40 Mg Capsule.dr, 1 CAP PO DAILY, #30 Ref 3 (Reported) Entered as Reported by: MADIE WOODARD on 06/19/17 0718 Last Action: Reviewed on 02/02/21820 by MARINE ELIZALDE RN Trazodone Hcl (Trazodone Hcl) 50 Mg Tablet, 50 MG PO HS, (Reported) Entered as Reported by: AIDE GAN on 11/06/13 1434 Last Action: Continued on 02/02/21903 by DAGO CROOKS Scheduled PRN Albuterol Sulfate (Proair Hfa Inhaler) 8.5 Gm Hfa.aer.ad, 2 PUFF INH PRN Q4HRS PRN for SEE COMMENTS, Ref 0 (Reported) Entered as Reported by: Dave Sheffield on 11/06/132115 Last Action: Continued on 02/02/21903 by DAGO CROOKS Alprazolam (Alprazolam) 0.25 Mg Tablet, 0.25 MG PO PRN Q6HRS PRN for ANXIETY / AGITATION, Ref 0 (Reported) Entered as Reported by: ERICKA MAURIEC on 09/22/15 1636 Last Action: Continued on 02/02/21903 by DAGO CROOKS Hydrocodone Bit/Acetaminophen (Hydrocodone-Apap 7.5-325 ) 1 Each Tablet, 1 TAB PO PRN Q6HRS PRN for PAIN, Ref 0 (Reported) Entered as Reported by: Doug Ashley on 04/07/152037 Last Action: Reviewed on 02/02/21820 by MARINE ELIZALDE RN Lubiprostone (Amitiza) 8 Mcg Capsule, 8 MCG PO PRN DAILY PRN for CONSTIPATION for 30 Days, #30 Prescribed by: YOBANY GONZALEZ MD on 02/02/21 1405 Justicifation of Admission Dx: Justifications for Admission: Justification of Admission Dx: Yes YOBANY GONZALEZ MD Feb 03, 2021 16:11
== END 2021-02-02 14:50 | disposition home or self-care (01) | DRG 389 ==
LOC: ER 23:05 → 5 NORTH 02-02 04:07
PROVIDERS: ADMIT Family Medicine; ATTEND Family Medicine
DX: K56.7 Ileus, unspecified (principal); K59.39 Other megacolon; N39.0 Urinary tract infection, site not specified; E66.01 Morbid (severe) obesity due to excess calories; E78.00 Pure hypercholesterolemia, unspecified; E78.5 Hyperlipidemia, unspecified; F32.A Depression, unspecified; F41.9 Anxiety disorder, unspecified; I10 Essential (primary) hypertension; I25.10 Atherosclerotic heart disease of native coronary artery without angina pectoris; I48.0 Paroxysmal atrial fibrillation; J45.909 Unspecified asthma, uncomplicated; K21.9 Gastro-esophageal reflux disease without esophagitis; M06.9 Rheumatoid arthritis, unspecified; M19.90 Unspecified osteoarthritis, unspecified site; M81.0 Age-related osteoporosis without current pathological fracture; Z82.49 Family history of ischemic heart disease and other diseases of the circulatory system; Z90.49 Acquired absence of other specified parts of digestive tract; Z90.710 Acquired absence of both cervix and uterus; R91.8 Other nonspecific abnormal finding of lung field; Z88.2 Allergy status to sulfonamides; Z91.041 Radiographic dye allergy status; Z88.5 Allergy status to narcotic agent; Z91.013 Allergy to seafood
CPT/HCPCS: 36415; 74176; 80053; 81001; 85025; 87086; 94760; 96374; 96375; 96376; J2270; J2405; 99285-25; G0378

== ENCOUNTER 2021-08-16 17:46 | Emergency (ER) | payer BC ==
[~2021-08-16] VITALS: Ht 154.9 cm; Wt 106.3 kg
[~2021-08-16 17:46] MED LIST changes: +LUBI8CAP4 PO; -OMEP20TA8 PO; +OMEP20TA91 PO
[2021-08-16] MEDS ORDERED: ONDANSETRON PF 4 MG/2 ML VIAL. IVP ONE (18:45)
[2021-08-16] MEDS ORDERED: IV NORMAL SALINE 1000ML BAG 1,000 ML IV ONE (18:45)
[2021-08-16] MEDS ORDERED: MORPHINE SULFATE 4 MG/ML INJ. IV PRN (18:45)
--- NOTE | 2021-08-16 19:03 | PHYS DOC ---
Past Medical History Past Medical History: A-Fib, Arthritis, Asthma, CAD, Depression, High Cholesterol, Hypertension, Other Additional Past Medical Histor: Osteoporosis Past Surgical History: Appendectomy, Cholecystectomy, Hysterectomy, Tonsillectomy, Other Additional Past Surgical Histo: R Arm w/ hardware,CARDIOVERSION Smoking Status: Former Smoker Alcohol Use: Rarely Drug Use: None Adult General Chief Complaint Chief Complaint: CONSTIPATION HPI HPI Patient is a 76 year old female presenting to the emergency department for evaluation of constipation. Patient says that she has not had a bowel movement in several days and now she is having severe left-sided and lower abdominal pain. She says that she does take hydrocodone for pain at home and usually she takes MiraLAX but she had forgotten to do so until today and she also took magnesium citrate and Dulcolax but she is still unable to have a bowel movement. She says that she is nauseated but has had no vomiting she denies fevers chills diarrhea dysuria hematuria. She appears uncomfortable but is nontoxic with normal vital signs. Review of Systems Review of Systems Constitutional: Denies fever or chills [] Eyes: Denies change in visual acuity, redness, or eye pain [] HENT: Denies nasal congestion or sore throat [] Respiratory: Denies cough or shortness of breath [] Cardiovascular: No additional information not addressed in HPI [] GI: + abdominal pain, nausea. No vomiting, bloody stools or diarrhea [] : Denies dysuria or hematuria [] Musculoskeletal: Denies back pain or joint pain [] Integument: Denies rash or skin lesions [] Neurologic: Denies headache, focal weakness or sensory changes [] All other systems were reviewed and found to be within normal limits, except as documented in this note. Current Medications Current Medications Current Medications Medications (Trade) Dose Ordered Sig/Dev Start Time Stop Time Status Last Admin Dose Admin Glycerin (Sani-Supp Child) 1 supp 1X ONCE 08/16/21 20:15 08/16/21 20:17 DC 08/16/21 21:03 1 SUPP Hydromorphone HCl (Dilaudid) 1 mg 1X ONCE 08/16/21 22:15 08/16/21 22:16 DC 08/16/21 22:40 1 MG Magnesium Citrate (Citroma) 296 ml 1X ONCE 08/16/21 20:15 08/16/21 20:17 DC 08/16/21 21:05 296 ML Methylnaltrexone Benedict (Relistor) 12 mg 1X ONCE 08/16/21 20:15 08/16/21 20:17 DC 08/16/21 21:05 12 MG Morphine Sulfate (Morphine Sulfate) 4 mg 1X PRN 08/16/21 18:45 08/16/21 18:56 4 MG Ondansetron HCl (Zofran) 4 mg 1X ONCE 08/16/21 18:45 08/16/21 18:52 DC 08/16/21 18:56 4 MG Sodium Chloride 1,000 ml @ 1,000 mls/hr 1X ONCE 08/16/21 18:45 08/16/21 19:44 DC 08/16/21 18:57 1,000 MLS/HR Allergies Allergies Allergies Coded Allergies Type Severity Reaction Last Updated Verified iodine Allergy Severe Anaphylaxis 06/19/17 Yes iodine Allergy Severe anaphylaxis, throat swelling and difficulty breathing 06/19/17 No shellfish derived Allergy Severe Anaphylaxis 06/19/17 Yes Sulfa (Sulfonamide Antibiotics) Allergy Intermediate Swelling, pain in neck 06/19/17 Yes Physical Exam Physical Exam Constitutional: Well developed, well nourished, no acute distress, non-toxic appearance. [] HENT: Normocephalic, atraumatic, bilateral external ears normal, oropharynx moist, no oral exudates, nose normal. [] Eyes: PERRLA, EOMI, conjunctiva normal, no discharge. [] Neck: Normal range of motion, no tenderness, supple, no stridor. [] Cardiovascular:Heart rate regular rhythm, no murmur [] Lungs & Thorax: Bilateral breath sounds clear to auscultation [] Abdomen: Bowel sounds normal, soft, positive bilateral lower quadrant tenderness to palpation with no rebound or guarding. Rectal exam revealed no fecal impaction or gross blood or masses internally or externally. Skin: Warm, dry, no erythema, no rash. [] Back: No tenderness, no CVA tenderness. [] Extremities: No tenderness, no cyanosis, no clubbing, ROM intact, no edema. [] Neurologic: Alert and oriented X 3, normal motor function, normal sensory function, no focal deficits noted. [] Current Patient Data Vital Signs Vital Signs Date Time Temp Pulse Resp B/P (MAP) Pulse Ox O2 Delivery O2 Flow Rate FiO2 5/11/22 22:40 20 97 Room Air 08/16/21 18:15 98.7 87 207/91 (129) 98.7 Lab Values Laboratory Tests Test 08/16/21 18:55 08/16/21 19:30 White Blood Count 10.3 x10^3/uL (4.0-11.0) Red Blood Count 4.46 x10^6/uL (3.50-5.40) Hemoglobin 12.8 g/dL (12.0-15.5) Hematocrit 38.6 % (36.0-47.0) Mean Corpuscular Volume 87 fL (79-100) Mean Corpuscular Hemoglobin 29 pg (25-35) Mean Corpuscular Hemoglobin Concent 33 g/dL (31-37) Red Cell Distribution Width 14.7 % (11.5-14.5) H Platelet Count 263 x10^3/uL (140-400) Neutrophils (%) (Auto) 83 % (31-73) H Lymphocytes (%) (Auto) 9 % (24-48) L Monocytes (%) (Auto) 7 % (0-9) Eosinophils (%) (Auto) 1 % (0-3) Basophils (%) (Auto) 1 % (0-3) Neutrophils # (Auto) 8.6 x10^3/uL (1.8-7.7) H Lymphocytes # (Auto) 0.9 x10^3/uL (1.0-4.8) L Monocytes # (Auto) 0.7 x10^3/uL (0.0-1.1) Eosinophils # (Auto) 0.1 x10^3/uL (0.0-0.7) Basophils # (Auto) 0.1 x10^3/uL (0.0-0.2) Sodium Level 143 mmol/L (136-145) Potassium Level 3.9 mmol/L (3.5-5.1) Chloride Level 104 mmol/L (98-107) Carbon Dioxide Level 31 mmol/L (21-32) Anion Gap 8 (6-14) Blood Urea Nitrogen 20 mg/dL (7-20) Creatinine 0.7 mg/dL (0.6-1.0) Estimated GFR (Cockcroft-Gault) 81.6 BUN/Creatinine Ratio 29 (6-20) H Glucose Level 111 mg/dL (70-99) H Calcium Level 8.8 mg/dL (8.5-10.1) Total Bilirubin 0.5 mg/dL (0.2-1.0) Aspartate Amino Transferase (AST) 12 U/L (15-37) L Alanine Aminotransferase (ALT) 18 U/L (14-59) Alkaline Phosphatase 94 U/L (46-116) Total Protein 7.0 g/dL (6.4-8.2) Albumin 3.4 g/dL (3.4-5.0) Albumin/Globulin Ratio 0.9 (1.0-1.7) L Lipase 43 U/L (73-393) L Laboratory Tests 08/16/21 18:55 Laboratory Tests 08/16/21 19:30 EKG EKG [] Radiology/Procedures Radiology/Procedures [] Course & Med Decision Making Course & Med Decision Making I will check labs and imaging treat her symptoms and reassess. A CT using radiopaque IV contrast would be the preferred radiologic imaging for this patient however due to an unprecedented worldwide shortage of I denied IV contrast agent hospital protocols have been adjusted to conserve remaining and available contrast doses. Patient initially was not having much relief after being given relistor and magnesium citrate but she did eventually have a small bowel movement. Patient says she was still having significant pain so I recommended that she gets into the hospital for intractable pain and further bowel regimens and GI consultation. Patient refused stating that she is starting to feel better and wants to treat her constipation at home. Patient did have benign repeat abdominal exam and is tolerating fluids by mouth with no difficulty so I will discharge her in stable condition given she is requesting discharge. Patient told to follow with primary care provider within 2 days for recheck and come back to emergency department sooner with worsening pain fevers vomiting or other general concerns. Patient and family aware and agreeable with plan for discharge and verbalized understanding of the above instructions. Dragon Disclaimer Dragon Disclaimer This electronic medical record was generated, in whole or in part, using a voice recognition dictation system. Departure Departure Impression: Primary Impression: Intractable abdominal pain Additional Impression: Constipation Disposition: HOME / SELF CARE / HOMELESS Condition: STABLE Referrals: AIDE WILL MD (PCP) Patient Instructions: Constipation, Adult Problem Qualifiers Additional Impression: Constipation Constipation type: unspecified constipation type Qualified Codes: K59.00 - Constipation, unspecified BENITA COOK DO August 16, 2021 19:03
[2021-08-16 19:13] LABS: BASO # 0.1 x10^3/uL (0.0-0.2); BASO % 1 % (0-3); EOS # 0.1 x10^3/uL (0.0-0.7); EOS % 1 % (0-3); HEMATOCRIT 38.6 % (36.0-47.0); HEMOGLOBIN 12.8 g/dL (12.0-15.5); LYMPH # 0.9 x10^3/uL (1.0-4.8); LYMPH % 9 % (24-48); MEAN CORPUSCULAR HEMOGLOBIN 29 pg (25-35); MEAN CORPUSCULAR HGB CONC 33 g/dL (31-37); MEAN CORPUSCULAR VOLUME 87 fL (79-100); MONO # 0.7 x10^3/uL (0.0-1.1); MONO % 7 % (0-9); NEUT # 8.6 x10^3/uL (1.8-7.7); NEUT % 83 % (31-73); PLATELET COUNT 263 x10^3/uL (140-400); RED BLOOD COUNT 4.46 x10^6/uL (3.50-5.40); RED CELL DISTRIBUTION WIDTH 14.7 % (11.5-14.5); WHITE BLOOD COUNT 10.3 x10^3/uL (4.0-11.0)
[2021-08-16 19:49] LABS: CALCIUM 8.8 mg/dL (8.5-10.1); CREATININE 0.7 mg/dL (0.6-1.0); GFR 81.6; POTASSIUM 3.9 mmol/L (3.5-5.1)
[2021-08-16 19:54] LABS: ALBUMIN 3.4 g/dL (3.4-5.0); ALBUMIN/GLOBULIN RATIO 0.9 (1.0-1.7); TOTAL BILIRUBIN 0.5 mg/dL (0.2-1.0)
--- NOTE | 2021-08-16 20:01 | RAD ---
EXAMINATION: CT ABDOMEN+PELVIS WO CLINICAL HISTORY: Diffuse L sided abd pain, constipation. TECHNIQUE: Imaging of the abdomen and pelvis was performed without intravenous contrast using standar d technique, scanning from just above the dome of the diaphragm to the symphysis pubis. Unenhanced i maging is limited for the evaluation of some intra-abdominal and pelvic pathology. CT Dose Reduction Employed: One or more of the following individualized dose reduction techniques wer e utilized for this examination: 1. Automated exposure control 2. Adjustment of the mA and/or kV ac cording to patient size 3. Use of iterative reconstruction technique. COMPARISON: 02/02/2021 FINDINGS: Mitral valve/annulus calcification. Visualized lungs unremarkable. Biliary ductal prominence status post cholecystectomy, similar to prior study. Small splenic calcific ation, possibly related to old granulomatous disease. Liver, pancreas, and adrenal glands unremarkabl e. Exophytic 4 cm hypodense lesion superior pole left kidney, similar to prior study and favors cyst. Ri ght kidney unremarkable. Minimally filled urinary bladder suboptimally evaluated. Hysterectomy. Nondistended distal sigmoid colon with otherwise prominent stool throughout the remainder of the colo n, similar to prior study. No small bowel dilation. Appendix not definitively visualized. [id number] arterial atherosclerotic calcification without aneurysm. Multilevel thoracolumbar degenerative changes. IMPRESSION: Prominent stool throughout the colon with the exception of the distal sigmoid colon, similar to prior study. Findings are nonspecific and may be related to constipation or mild colonic ileus, but a stri cture in the sigmoid colon cannot be excluded. Additional nonacute findings as described. Electronically signed by: Maxim Ruvalcaba DO (08/16/2021 7:59 PM) JUDIE
[2021-08-16] MEDS ORDERED: GLYCERIN CHILD 1 SUPP.RECT. PR ONE (20:15)
[2021-08-16] MEDS ORDERED: METHYLNALTREXONE 12 MG/0.6 ML VIAL. SQ ONE (20:15)
[2021-08-16] MEDS ORDERED: MAGNESIUM CITRATE 296 ML SOLUTION. PO ONE (20:15)
[2021-08-16] MEDS ORDERED: HYDROmorphone 2 MG/ML INJ. IVP ONE (22:15)
[2021-08-16 23:05] VITALS: BP 172/78
== END 2021-08-16 23:10 | disposition home or self-care (01) ==
LOC: ER 17:46
DX: K59.00 Constipation, unspecified (principal); I48.91 Unspecified atrial fibrillation; J45.909 Unspecified asthma, uncomplicated; E78.00 Pure hypercholesterolemia, unspecified; I10 Essential (primary) hypertension; I25.10 Atherosclerotic heart disease of native coronary artery without angina pectoris; Z87.891 Personal history of nicotine dependence; Z90.49 Acquired absence of other specified parts of digestive tract; Z90.710 Acquired absence of both cervix and uterus; Z90.89 Acquired absence of other organs; Z88.2 Allergy status to sulfonamides; Z91.013 Allergy to seafood; Z88.8 Allergy status to other drugs, medicaments and biological substances
CPT/HCPCS: 36415; 74176; 80053; 83690; 85025; 96361; 96372; 96374; 96375; 99285; J1170; J2212; J2270; J2405; J7030

== ENCOUNTER 2021-08-17 12:35 | Inpatient (IN) | payer BC ==
[~2021-08-17] VITALS: Ht 154.9 cm; Wt 110.7 kg
--- NOTE | 2021-08-17 14:09 | PHYS DOC ---
Past Medical History Past Medical History: A-Fib, Arthritis, Asthma, CAD, Depression, High Cho lesterol, Hypertension, Other Additional Past Medical Histor: Osteoporosis Past Surgical History: Appendectomy, Cholecystectomy, Hysterectomy, Tonsillectomy, Other Additional Past Surgical Histo: R Arm w/ hardware,CARDIOVERSION Smoking Status: Former Smoker Alcohol Use: Rarely Drug Use: None General Adult EDM: Chief Complaint: CONSTIPATION HPI: HPI: Patient is a 76 year old female who presents to the ED complaining of persi stent constipation and nausea. Patient was seen yesterday evening and elected to go home in attempt to pass BM in the comfort of her home. She says that she still has not had a bowel movement despite 8 tablets dulcolax and a full bottle of miralax. Patient reports continued and worsened severe left-sided and lower abdominal pain. Patient denies fever, chills, weakness, vomiting, dysuria, hematuria. She says that she does take hydrocodone for pain at home and usually she takes MiraLAX, but she had forgotten to do so until yesterday. Review of Systems: Review of Systems: ROS negative or noncontributory except as mentioned in HPI. Heart Score: C/O Chest Pain: No Allergies: Allergies: Allergies Coded Allergies Type Severity Reaction Last Updated Verified iodine Allergy Severe Anaphylaxis 06/19/17 Yes iodine Allergy Severe anaphylaxis, throat swelling and difficulty breathing 06/19/17 No shellfish derived Allergy Severe Anaphylaxis 06/19/17 Yes Sulfa (Sulfonamide Antibiotics) Allergy Intermediate Swelling, pain in neck 06/19/17 Yes Physical Exam: PE: Constitutional: Overweight, tearful, nontoxic appearing. HENT: Normocephalic, atraumatic, bilateral external ears normal, oropharynx coated, nose normal. Eyes: EOMI, conjunctiva normal, no discharge. Neck: Normal range of motion, no stridor. Cardiovascular: Heart regular rate and rhythm. Lungs & Thorax: Equal thoracic expansion, no increased work of breathing. Abdomen: Bowel sounds hypoactive, soft, diffuse tenderness but particularly in the lower abdomen, no rebound, no masses, no pulsatile masses. Skin: Visualized skin warm, dry, no erythema, no rash. Extremities: No cyanosis, no clubbing, ROM intact, no edema. Current Patient Data: Labs: Laboratory Tests Test 08/17/21 13:05 08/17/21 14:25 White Blood Count 19.1 x10^3/uL (4.0-11.0) Red Blood Count 4.71 x10^6/uL (3.50-5.40) Hemoglobin 13.3 g/dL (12.0-15.5) Hematocrit 41.2 % (36.0-47.0) Mean Corpuscular Volume 88 fL (79-100) Mean Corpuscular Hemoglobin 28 pg (25-35) Mean Corpuscular Hemoglobin Concent 32 g/dL (31-37) Red Cell Distribution Width 15.0 % (11.5-14.5) Platelet Count 309 x10^3/uL (140-400) Neutrophils (%) (Auto) 93 % (31-73) Lymphocytes (%) (Auto) 2 % (24-48) Monocytes (%) (Auto) 4 % (0-9) Eosinophils (%) (Auto) 0 % (0-3) Basophils (%) (Auto) 0 % (0-3) Neutrophils # (Auto) 17.8 x10^3/uL (1.8-7.7) Lymphocytes # (Auto) 0.4 x10^3/uL (1.0-4.8) Monocytes # (Auto) 0.8 x10^3/uL (0.0-1.1) Eosinophils # (Auto) 0.0 x10^3/uL (0.0-0.7) Basophils # (Auto) 0.1 x10^3/uL (0.0-0.2) Segmented Neutrophils % 88 % (35-66) Band Neutrophils % 2 % (0-9) Lymphocytes % 5 % (24-48) Atypical Lymphocytes % (Manual) 2 % (0-0) Monocytes % 3 % (0-10) Platelet Estimate Adequate (ADEQUATE) Sodium Level 142 mmol/L (136-145) Potassium Level 3.8 mmol/L (3.5-5.1) Chloride Level 102 mmol/L (98-107) Carbon Dioxide Level 30 mmol/L (21-32) Anion Gap 10 (6-14) Blood Urea Nitrogen 22 mg/dL (7-20) Creatinine 0.7 mg/dL (0.6-1.0) Estimated GFR (Cockcroft-Gault) 81.6 BUN/Creatinine Ratio 31 (6-20) Glucose Level 176 mg/dL (70-99) Lactic Acid Level 2.9 mmol/L (0.4-2.0) Calcium Level 8.7 mg/dL (8.5-10.1) Magnesium Level 4.1 mg/dL (1.8-2.4) Total Bilirubin 0.6 mg/dL (0.2-1.0) Aspartate Amino Transf (AST/SGOT) 16 U/L (15-37) Alanine Aminotransferase (ALT/SGPT) 18 U/L (14-59) Alkaline Phosphatase 113 U/L (46-116) Total Protein 7.4 g/dL (6.4-8.2) Albumin 3.4 g/dL (3.4-5.0) Albumin/Globulin Ratio 0.9 (1.0-1.7) Lipase 21 U/L (73-393) Urine Collection Type Unknown Urine Color (Auto) Yellow Urine Turbidity Hazy Urine pH (Auto) 7.0 (<5.0-8.0) Urine Specific [place] 1.017 (1.000-1.030) Urine Protein (Auto) Negative mg/dL (Negative) Urine Glucose (Auto)(UA) Negative mg/dL (Negative) Urine Ketones (Auto) Negative mg/dL (Negative) Urine Blood (Auto) Negative (Negative) Urine Nitrite Negative (Negative) Urine Bilirubin (Auto) Negative (Negative) Urine Urobilinogen (Auto) 4 mg/dL (Normal) Urine Leukocyte Esterase (Auto) Moderate (Negative) Urine RBC 1-2 /HPF (0-2) Urine WBC 20-40 /HPF (0-4) Urine Squamous Epithelial Cells Mod /LPF Urine Bacteria Many /HPF (0-FEW) Urine Hyaline Casts Few /HPF Urine Mucus Mod /LPF Urine Yeast Present /HPF Vital Signs: Vital Signs Date Time Temp Pulse Resp B/P (MAP) Pulse Ox O2 Delivery O2 Flow Rate FiO2 08/17/21 15:16 22 95 Room Air 08/17/21 15:00 65 16 155/68 (97) 93 Room Air 08/17/21 13:54 70 192/84 (120) 95 Room Air 08/17/21 13:18 97.8 66 22 189/79 (115) 97 Room Air 97.8 08/17/21 12:54 66 184/79 (114) 95 Room Air Radiology/Procedures: Radiology/Procedures: PROCEDURE: CT ABDOMEN PELVIS WO CONTRAST EXAMINATION: CT ABDOMEN+PELVIS WO CLINICAL HISTORY: Diffuse L sided abd pain, constipation. TECHNIQUE: Imaging of the abdomen and pelvis was performed without intravenous contrast using standard technique, scanning from just above the dome of the diaphragm to the symphysis pubis. Unenhanced imaging is limited for the evaluation of some intra-abdominal and pelvic pathology. CT Dose Reduction Employed: One or more of the following individualized dose reduction techniques were utilized for this examination: 1. Automated exposure control 2. Adjustment of the mA and/or kV according to patient size 3. Use of iterative reconstruction technique. COMPARISON: 02/02/2021 FINDINGS: Mitral valve/annulus calcification. Visualized lungs unremarkable. Biliary ductal prominence status post cholecystectomy, similar to prior study. Small splenic calcification, possibly related to old granulomatous disease. Liver, pancreas, and adrenal glands unremarkable. Exophytic 4 cm hypodense lesion superior pole left kidney, similar to prior study and favors cyst. Right kidney unremarkable. Minimally filled urinary bladder suboptimally evaluated. Hysterectomy. Nondistended distal sigmoid colon with otherwise prominent stool throughout the remainder of the colon, similar to prior study. No small bowel dilation. Appendix not definitively visualized. [id number] arterial atherosclerotic calcification without aneurysm. Multilevel thoracolumbar degenerative changes. IMPRESSION: Prominent stool throughout the colon with the exception of the distal sigmoid colon, similar to prior study. Findings are nonspecific and may be related to constipation or mild colonic ileus, but a stricture in the sigmoid colon cannot be excluded. Additional nonacute findings as described. Electronically signed by: Maxim Ruvalcaba DO (08/16/2021 7:59 PM) [facility] Course & Med Decision Making: Course & Med Decision Making Pertinent Labs and Imaging studies reviewed. (See chart for details) Patient is a 76-year-old female who presents with constipation, persistent from yesterday. She was offered admission yesterday, but declined and was discharged home. Patient is gladly excepted by hospitalist, Dr. Gutierrez for admission for evaluation of constipation and intractable abdominal pain. Both GI and general surgery are aware of patient case. Patient hemodynamically stable at time of transfer to floor. [place] Disclaimer: Ronel Disclaimer: This electronic medical record was generated, in whole or in part, using a voice recognition dictation system. Departure Departure Impression: Primary Impression: Constipation Qualified Codes: K59.00 - Constipation, unspecified Additional Impression: Intractable abdominal pain Disposition: ADMITTED INPATIENT Admitting Physician: DIEGO Miller) Referrals: AIDE WILL MD (PCP) MORGAN TSE August 17, 2021 14:09
--- NOTE | 2021-08-17 14:10 | PDOC1 ---
History and Physical Date of Admission Date of Admission DATE: 08/17/21 TIME: 14:08 Identification/Chief Complaint Chief Complaint Intractable abdominal pain, constipation Source Source: Patient History of Present Illness History of Present Illness Ms Rosales 76 yo female w/ PMHx AFIB (), CAD (reported mild), HTN, Hyperlipidemia, GERD, hiatal hernia, Anxiety, Depression, OA who comes to ED for complains constipation. She has not had a bowel movement for 4 days and has progressively worsening pain and abdominal cramping. She was actually seen in the ED on 08/16/2021 and recommended for admission she was given relistor and MiraLAX and had a small bowel movement. She failed to have continued relief and returns to the ED again Now with diffuse abdominal pain, colicky, /. Reduced appetite. Denies fever/chills. No dysuria, urgency, frequency. No flank pain. CT abdomen/pelvis with combination of stool and liquid stool identified in the colon distended or mildly dilated colon identified throughout the level of the sigmoid colon. WBC 19.1, UA with leukocyte Estrace Admitted for further care with GI and general surgery consultation Past Medical History Cardiovascular: AFIB, CAD, HTN, Hyperlipidemia Pulmonary: Other CENTRAL NERVOUS SYSTEM: Other GI: GERD, Other Heme/Onc: No pertinent hx Hepatobiliary: Other Psych: Anxiety, Depression Musculoskeletal: Other Rheumatologic: Rheumatoid arthritis Renal/: No pertinent hx Endocrine: Osteoporosis Past Surgical History Past Surgical History: Appendectomy, Cholecystectomy, Tonsillectomy, Hysterectomy, Other Family History Family History: Coronary Artery Disease, Hypertension Social History Smoke: No ALCOHOL: occassional Drugs: None Current Medications Current Medications Current Medications Morphine Sulfate (Morphine Sulfate) 4 mg 1X ONCE IVP ; Start 08/17/21 at 14:15; Stop 08/17/21 at 14:16 Ondansetron HCl (Zofran) 4 mg 1X ONCE IVP ; Start 08/17/21 at 14:15; Stop 08/17/21 at 14:16 Sodium Chloride 1,000 ml @ 1,000 mls/hr 1X ONCE IV ; Start 08/17/21 at 14:15; Stop 08/17/21 at 15:14 Active Scripts Active Amitiza (Lubiprostone) 8 Mcg Capsule 8 Mcg PO PRN DAILY PRN 30 Days Buspirone Hcl 10 Mg Tablet 10 Mg PO BID 30 Days Losartan Potassium (Losartan Potassium) 25 Mg Tablet 100 Mg PO DAILY 30 Days Reported D3-50 (Cholecalciferol (Vitamin D3)) 50,000 Unit Capsule 10,000 Unit PO DAILY Multaq (Dronedarone Hcl) 400 Mg Tablet 1 Tab PO BID Omeprazole 40 Mg Capsule.dr 1 Cap PO DAILY Diltiazem 24HR Cd (Diltiazem Hcl) 180 Mg Cap.er.24h 360 Mg PO DAILY Breo Ellipta 100-25 Mcg Inh (Fluticasone/Vilanterol) 1 Each Aer.pow.ba 1 Puff IH DAILY Cymbalta (Duloxetine Hcl) 60 Mg Capsule.dr 1 Cap PO DAILY Alprazolam 0.25 Mg Tablet 0.25 Mg PO PRN Q6HRS PRN Hydrocodone-Apap 7.5-325 (Hydrocodone Bit/Acetaminophen) 1 Each Tablet 1 Tab PO PRN Q6HRS PRN Proair Hfa Inhaler (Albuterol Sulfate) 8.5 Gm Hfa.aer.ad 2 Puff INH PRN Q4HRS MT N Atorvastatin Calcium 20 Mg Tablet 20 Mg PO HS Trazodone Hcl 50 Mg Tablet 50 Mg PO HS Aspir 81 (Aspirin) 81 Mg Tablet.dr 81 Mg PO DAILY Allergies Allergies: Coded Allergies: iodine (Verified Allergy, Severe, Anaphylaxis, 06/19/17) iodine (Unverified Allergy, Severe, anaphylaxis, throat swelling and difficulty breathing, 06/19/17) shellfish derived (Verified Allergy, Severe, Anaphylaxis, 06/19/17) Sulfa (Sulfonamide Antibiotics) (Verified Allergy, Intermediate, Swelling, pain in neck, 06/19/17) ROS General: YES: Fatigue, Malaise; No: Chills, Night Sweats, Appetite, Other PSYCHOLOGICAL ROS: No: Anxiety, Behavioral Disorder, Concentration difficultie, Decreased libido, Depression, Disorientation, Hallucinations, Hostility, Irritablity, Memory difficulties, Mood Swings, Obsessive thoughts, Physical abuse, Sexual abuse, Sleep disturbances, Suicidal ideation, Other Eyes: No Blurry vision, No Decreased vision, No Double vision, No Dry eyes, No Excessive tearing, No Eye Pain, No Itchy Eyes, No Loss of vision, No Photophobia, No Scotomata, No Uses contacts, No Uses glasses, No Other HEENT: No: Heacaches, Visual Changes, Hearing change, Nasal congestion, Nasal discharge, Oral lesions, Sinus pain, Sore Throat, Epistaxis, Sneezing, Snoring, Tinnitus, Vertigo, Vocal changes, Other ALLERGY AND IMMUNOLOGY: No: Hives, Insect Bite Sensitivity, Itchy/Watery Eyes, Nasal Congestion, Post Nasal Drip, Seasonal Allergies, Other Hematological and Lymphatic: No: Bleeding Problems, Blood Clots, Blood Transfusions, Brusing, Night Sweats, Pallor, Swollen Lymph Nodes, Other ENDOCRINE: No: Breast Changes, Galactorrhea, Hair Pattern Changes, Hot Flashes, Malaise/lethargy, Mood Swings, Palpitations, Polydipsia/polyuria, Skin Changes, Temperature Intolerance, Unexpected Weight Changes, Other Breast: No New/Changing Breast Lumps, No Nipple changes, No Nipple discharge, No Other Respiratory: No: Cough, Hemoptysis, Orthopnea, Pleuritic Pain, Shortness of breath, SOB with excertion, Sputum Changes, Stridor, Tachypnea, Wheezing, Other Cardiovascular: No Chest Pain, No Palpitations, No Orthopnea, No Paroxysmal Noc. Dyspnea, No Edema, No Lt Headedness, No Other Gastrointestinal: Yes Nausea, Yes Abdominal Pain, Yes Constipation; No Vomiting, No Diarrhea, No Melena, No Hematochezia, No Other Genitourinary: No Dysuria, No Frequency, No Incontinence, No Hematuria, No Retention, No Discharge, No Urgency, No Pain, No Flank Pain, No Other, No , No , No , No , No , No , No Musculoskeletal: No Gait Disturbance, No Joint Pain, No Joint Stiffness, No Joint Swelling, No Muscle Pain, No Muscular Weakness, No Pain In:, No Swelling In:, No Other Neurological: No Behavorial Changes, No Bowel/Bladder ControlChng, No Con fusion, No Dizziness, No Gait Disturbance, No Headaches, No Impaired Coord/balance, No Memory Loss, No Numbness/Tingling, No Seizures, No Speech Problems, No Tremors, No Visual Changes, No Weakness, No Other Skin: No Dry Skin, No Eczema, No Hair Changes, No Lumps, No Mole Changes, No Mottling, No Nail Changes, No Pruritus, No Rash, No Skin Lesion Changes, No O ther, No Acne Physical Exam General: Alert, Oriented X3, Cooperative, severe distress HEENT: Atraumatic, PERRLA, EOMI, Mucous membr. moist/pink Lungs: Clear to auscultation, Normal air movement Heart: S1S2, RRR, no thrills, no rubs, no gallops, no murmurs Abdomen: Normal bowel sounds, Soft, No tenderness, No hepatosplenomegaly, No masses Rectal Exam: not examined Extremities: No clubbing, No cyanosis, No edema, Normal pulses, No tenderness/swelling Skin: No rashes, No breakdown, No significant lesion Neuro: Normal gait, Normal speech, Strength at 5/5 X4 ext, Normal tone, Sensation intact, Cranial nerves 3-12 NL, Reflexes 2+ Psych/Mental Status: Mental status NL, Mood NL Vitals Vitals Vital Signs Date Time Temp Pulse Resp B/P (MAP) Pulse Ox O2 Delivery O2 Flow Rate FiO2 08/17/21 13:18 97.8 66 22 189/79 (115) 97 Room Air 97.8 VTE Prophylaxis Ordered VTE Prophylaxis Devices: Yes VTE Pharmacological Prophylaxi: Yes Assessment/Plan Assessment/Plan Abdominal pain - from constipation on digital exam unable to reach any stool looks like it stops sigmoid maybe there is an obstruction but its not clear we will try an enema. Leukocytosis - likely sepsis from colitis vs UTI. will cover with cipro Abnormal UA -we will treat as UTI follow-up on cultures. Lactic acidosis -likely due to above will hydrate follow-up on repeat. HTN - controlled Remote h/o AFIB () - PAFIB: maintaining SR/SB lowest 50s HLD - cont statin Morbid obesity -also on weight loss diet and exercise CAD - mild in 2010, no past intervention GERD with hiatal hernia - H2 yannick therapy Anxiety, Depression - continue meds OA -bilateral knees, she knows she needs to lose weight prior to having any surgical interventions. FEN - NPO PPX - heparin FULL CODE Dispo - inpatient Justifications for Admission Other Justification YOBANY GONZALEZ MD August 17, 2021 14:10
[2021-08-17] MEDS ORDERED: DOCUSATE SODIUM 283 MG/5 ML ENEMA. PR PRN (14:15)
[2021-08-17] MEDS ORDERED: MORPHINE SULFATE 2 MG/ML INJ. IV PRN (14:15)
[2021-08-17] MEDS ORDERED: DOCUSATE SODIUM 283 MG/5 ML ENEMA. PR ONE (14:15)
[2021-08-17] MEDS ORDERED: IV NORMAL SALINE 1000ML BAG 1,000 ML IV ONE (14:15)
[2021-08-17] MEDS ORDERED: MORPHINE SULFATE 4 MG/ML INJ. IVP ONE (14:15)
[2021-08-17] MEDS ORDERED: ACETAMINOPHEN 325 MG TABLET. PO PRN (14:15)
[2021-08-17] MEDS ORDERED: ONDANSETRON PF 4 MG/2 ML VIAL. IVP ONE (14:15)
[2021-08-17] MEDS ORDERED: ONDANSETRON PF 4 MG/2 ML VIAL. IVP PRN ×3 (14:15→16:00)
[2021-08-17] MEDS ORDERED: BISACODYL 10 MG SUPP.RECT. PR PRN (14:15)
[2021-08-17 14:21] LABS: BASO # 0.1 x10^3/uL (0.0-0.2); BASO % 0 % (0-3); EOS % 0 % (0-3); HEMATOCRIT 41.2 % (36.0-47.0); HEMOGLOBIN 13.3 g/dL (12.0-15.5); LYMPH # 0.4 x10^3/uL (1.0-4.8); LYMPH % 2 % (24-48); MEAN CORPUSCULAR HEMOGLOBIN 28 pg (25-35); MEAN CORPUSCULAR HGB CONC 32 g/dL (31-37); MEAN CORPUSCULAR VOLUME 88 fL (79-100); MONO # 0.8 x10^3/uL (0.0-1.1); MONO % 4 % (0-9); NEUT # 17.8 x10^3/uL (1.8-7.7); NEUT % 93 % (31-73); PLATELET COUNT 309 x10^3/uL (140-400); RED BLOOD COUNT 4.71 x10^6/uL (3.50-5.40); WHITE BLOOD COUNT 19.1 x10^3/uL (4.0-11.0)
[2021-08-17 14:48] LABS: HYALINE CASTS, URINE FEW /HPF
[2021-08-17 14:49] LABS: BACTERIA,URINE MANY /HPF (0-FEW); WBC,URINE 20-40 /HPF (0-4); YEAST,URINE PRESENT /HPF
[2021-08-17 14:50] LABS: CALCIUM 8.7 mg/dL (8.5-10.1); CREATININE 0.7 mg/dL (0.6-1.0); GFR 81.6; POTASSIUM 3.8 mmol/L (3.5-5.1)
[2021-08-17 14:56] LABS: ALBUMIN 3.4 g/dL (3.4-5.0); ALBUMIN/GLOBULIN RATIO 0.9 (1.0-1.7); MAGNESIUM 4.1 mg/dL (1.8-2.4); TOTAL BILIRUBIN 0.6 mg/dL (0.2-1.0); TOTAL PROTEIN 7.4 g/dL (6.4-8.2)
[2021-08-17 15:00] VITALS: BP 155/68
[2021-08-17 15:11] LABS: % ATYL 2 % (0-0); % BANDS 2 % (0-9); % LYMPHS 5 % (24-48); % MONOS 3 % (0-10); % SEGS 88 % (35-66); PLT ESTIMATE ADEQUATE (ADEQUATE)
[2021-08-17] MEDS ORDERED: MORPHINE SULFATE 4 MG/ML INJ. IVP PRN (15:15)
--- NOTE | 2021-08-17 15:16 | PDOC2 ---
GI CONSULT Date of Service: DATE: 08/17/21 TIME: 14:51 Reason For Consult: constipation, sigmoid stricture HPI: HPI: 76 y/o female seen in ER after called by Leoncio Fisher PA-C. She was seen in ER last night for constipation. Labs noted WBC 10. CT showed "nondistended distal sigmoid colon with otherwise prominent stool throughout the remainder of the colon, similar to prior study... findings are nonspecific and may be related to constipation or mild colonic ileus, but a stricture in the sigmoid colon cannot be excluded." Per ER documentation from last evening: "Patient initially was not having much relief after being given relistor and magnesium citrate but she did eventually have a small bowel movement. Patient says she was still having significant pain so I recommended that she gets into the hospital for intractable pain and further bowel regimens and GI consultation. Patient refused stating that she is starting to feel better and wants to treat her constipation at home. Patient did have benign repeat abdominal exam and is tolerating fluids by mouth with no difficulty so I will discharge her in stable condition given she is requesting discharge." Back to ER today w/ pain. Tells me no stool for "a couple three days" and before that stools were hard. Now w/ worsening LLQ discomfort - requesting more pain medication at this time. Associated w/ retching and distention, also says not passing gas. She says similar to symptoms when we saw in 01/2021 - at that time eventually stooled after Metamucil, Miralax, stool softeners, Dulcolax, MoM, Mag Citrate, and enema. At that time, CT noted "combination of stool and liquid stool, distende kimberly mildly dilated colon throughout level of sigmoid colon - differential includes colonic ileus or stricture at sigmoid colon. Colonoscopy by Dr. Rice in 02/2021 showed four adenomatous polyps at hepatic flexure (4-11mm), sigmoid diverticulosis, and non-bleeding internal hemorrhoids. This time (in the last day or so), she has taken Mag Citrate x 2, Dulcolax x 8, and Miralax x 2. WBC up to 19. Lifelong h/o constipation - improved after we saw in 01/2021 w/ regular use of Miralax which she quit recently. She used to take it in fruit smoothies, but someone recently suggested she quit drinking those and start drinking a protein drink for weight loss. H/o GERD controlled w/ omeprazole QD. No dysphagia, n/v, hematochezia, melena, or change in appetite. EGD by Dr. Rice in 06/2017 for ROXIE showed normal esophagus, chronic gastritis, normal duodenum. No biopsies. Colonoscopy by Dr. Rice in 01/2014 for change in bowel habits was unremarkable except for non-bleeding internal hemorrhoids. S/p cholecystectomy ("one big stone"). Hepatosplenomegaly noted on past CT. No pancreas or PUD history. H/o CAD on ASA. Not infrequently takes hydrocodone for arthritis pain. PMH: PMH: A Fib s/p cardioversion, CAD, HTN, HLD, anxiety, depression, lung nodules, arthritis, osteoporosis, UTI right forearm fracture/repair, appendectomy, cholecystectomy, complete hysterectomy, hemorrhoidectomy FH: Family History: No pertinent hx (deneis GI cancers), DM, Hypertension Social History: Smoke: Quit ALCOHOL: occassional Drugs: None ROS: GEN: Denies fevers, chills, sweats HEENT: Denies blurred vision, sore throat CV: Denies chest pain RESP: Denies shortness of air, cough GI: Per HPI : Denies hematuria, dysuria ENDO: +trying to lose weight NEURO: Denies confusion, dizziness MSK: +arthritis pain SKIN: Denies jaundice, pruritus Vitals: Vitals: Vital Signs Date Time Temp Pulse Resp B/P (MAP) Pulse Ox O2 Delivery O2 Flow Rate FiO2 08/17/21 13:18 97.8 66 22 189/79 (115) 97 Room Air 97.8 Labs: Labs: Laboratory Tests Test 08/17/21 13:05 08/17/21 14:25 White Blood Count 19.1 x10^3/uL (4.0-11.0) Red Blood Count 4.71 x10^6/uL (3.50-5.40) Hemoglobin 13.3 g/dL (12.0-15.5) Hematocrit 41.2 % (36.0-47.0) Mean Corpuscular Volume 88 fL (79-100) Mean Corpuscular Hemoglobin 28 pg (25-35) Mean Corpuscular Hemoglobin Concent 32 g/dL (31-37) Red Cell Distribution Width 15.0 % (11.5-14.5) Platelet Count 309 x10^3/uL (140-400) Neutrophils (%) (Auto) 93 % (31-73) Lymphocytes (%) (Auto) 2 % (24-48) Monocytes (%) (Auto) 4 % (0-9) Eosinophils (%) (Auto) 0 % (0-3) Basophils (%) (Auto) 0 % (0-3) Neutrophils # (Auto) 17.8 x10^3/uL (1.8-7.7) Lymphocytes # (Auto) 0.4 x10^3/uL (1.0-4.8) Monocytes # (Auto) 0.8 x10^3/uL (0.0-1.1) Eosinophils # (Auto) 0.0 x10^3/uL (0.0-0.7) Basophils # (Auto) 0.1 x10^3/uL (0.0-0.2) Urine Collection Type Unknown Urine Color (Auto) Yellow Urine Turbidity Hazy Urine pH (Auto) 7.0 (<5.0-8.0) Urine Specific [place] 1.017 (1.000-1.030) Urine Protein (Auto) Negative mg/dL (Negative) Urine Glucose (Auto)(UA) Negative mg/dL (Negative) Urine Ketones (Auto) Negative mg/dL (Negative) Urine Blood (Auto) Negative (Negative) Urine Nitrite Negative (Negative) Urine Bilirubin (Auto) Negative (Negative) Urine Urobilinogen (Auto) 4 mg/dL (Normal) Urine Leukocyte Esterase (Auto) Moderate (Negative) Urine RBC 1-2 /HPF (0-2) Urine WBC 20-40 /HPF (0-4) Urine Squamous Epithelial Cells Mod /LPF Urine Bacteria Many /HPF (0-FEW) Urine Hyaline Casts Few /HPF Urine Mucus Mod /LPF Urine Yeast Present /HPF Allergies: Coded Allergies: iodine (Verified Allergy, Severe, Anaphylaxis, 06/19/17) iodine (Unverified Allergy, Severe, anaphylaxis, throat swelling and difficulty breathing, 06/19/17) shellfish derived (Verified Allergy, Severe, Anaphylaxis, 06/19/17) Sulfa (Sulfonamide Antibiotics) (Verified Allergy, Intermediate, Swelling, pain in neck, 06/19/17) Medications: Current Medications Medications (Trade) Dose Ordered Sig/Dev Route PRN Reason Start Time Stop Time Status Last Admin Dose Admin Morphine Sulfate (Morphine Sulfate) 4 mg 1X ONCE IVP 08/17/21 14:15 08/17/21 14:16 DC 08/17/21 14:11 Ondansetron HCl (Zofran) 4 mg 1X ONCE IVP 08/17/21 14:15 08/17/21 14:16 DC 08/17/21 14:10 Sodium Chloride 1,000 ml @ 1,000 mls/hr 1X ONCE IV 08/17/21 14:15 08/17/21 15:14 08/17/21 14:11 Imaging: Imaging: CT A/P 08/16/21 FINDINGS: Mitral valve/annulus calcification. Visualized lungs unremarkable. Biliary ductal prominence status post cholecystectomy, similar to prior study. Small splenic calcification, possibly related to old granulomatous disease. Liver, pancreas, and adrenal glands unremarkable. Exophytic 4 cm hypodense lesion superior pole left kidney, similar to prior study and favors cyst. Right kidney unremarkable. Minimally filled urinary bladder suboptimally evaluated. Hysterectomy. Nondistended distal sigmoid colon with otherwise prominent stool throughout the remainder of the colon, similar to prior study. No small bowel dilation. Appendix not definitively visualized. [id number] arterial atherosclerotic calcification without aneurysm. Multilevel thoracolumbar degenerative changes. IMPRESSION: Prominent stool throughout the colon with the exception of the distal sigmoid colon, similar to prior study. Findings are nonspecific and may be related to constipation or mild colonic ileus, but a stricture in the sigmoid colon cannot be excluded. Additional nonacute findings as described. PE: GEN: uncomfortable, moaning HEENT: Atraumatic, PERRL LUNGS: CTAB HEART: RRR ABD: pretty quiet, diffuse discomfort but worst in LLQ EXTREMITY: No edema SKIN: No rashes, no jaundice NEURO/PSYCH: A & O 3 A/P: A/P: Chronic constipation - lifelong issue, recently probably complicated by opioid use, now worse w/ severe LLQ pain since stopping Miralax Leukocytosis Abnormal CT - "Prominent stool throughout the colon with the exception of the distal sigmoid colon, similar to prior study. Findings are nonspecific and may be related to constipation or mild colonic ileus, but a stricture in the sigmoid colon cannot be excluded." GERD - controlled w/ PPI CRC screen - UTD (2020 - no stricture) H/o adenomatous polyps Diverticulosis Hemorrhoids S/p cholecystectomy Hepatosplenomegaly on past imaging H/o CAD on ASA Chronic knee pain on hydrocone PRN -- ER note indicates small stool yesterday after Relistor. She says no relief with Mag Citrate, Dulcolax, Miralax. Feeling worse, WBC increased. Check acute abd series, await lactic acid. D/w Dr. Rice who recommends surgery opinion and gentle enema. DEONDRE TORRES August 17, 2021 15:16
[2021-08-17] MEDS ORDERED: HYDROmorphone 2 MG/ML INJ. IVP PRN ×3 (16:00→16:15)
[2021-08-17] MEDS: IV RINGERS,LACTATED 1000ML 1,000 ML IV SCH (16:30)
[2021-08-17] MEDS: PANTOPRAZOLE IV PUSH 40 MG VIAL. IVP SCH (16:44)
[2021-08-17] MEDS ORDERED: CIPROFLOXACIN 200MG PREMIX 100 ML IV ONE (17:00)
--- NOTE | 2021-08-17 17:23 | RAD ---
EXAM: Abdomen series. HISTORY: Constipation. Leukocytosis. COMPARISON: CT dated 08/16/2021. FINDINGS: A frontal view of the chest and frontal upright and supine views of the abdomen are obtaine d. There is no infiltrate, pleural effusion or pneumothorax. There is cardiomegaly. There are promine nt air-filled loops of small and large bowel throughout the abdomen. No transition point is seen. The re are cholecystectomy clips. IMPRESSION: 1. No acute pulmonary finding. 2. Prominent air-filled dose of bowel throughout the abdomen. No transition point is seen to suggest obstruction. This is not appreciably changed compared to the recent CT. 3. Cardiomegaly. Electronically signed by: Jacquelin Diaz MD (08/17/2021 5:21 PM) [id number]
--- NOTE | 2021-08-17 18:25 | NUR ---
Patient had moderate to large firm formed and liquid stool. Urine karolina in color. Patient has related that she is more comfortable, [place] after receiving the dose of dilaudid.
[2021-08-17 19:20] VITALS: BP 156/75
[2021-08-17] MEDS: HYDROmorphone 2 MG/ML INJ. IVP PRN ×2 (19:55→23:41)
[2021-08-17] MEDS: PSYLLIUM HUSK (SUGAR FREE) 1 PKT PACKET PO SCH (21:00)
[2021-08-17 23:41] VITALS: BP 157/77
[2021-08-18 03:24] VITALS: BP 144/49
[2021-08-18] MEDS: IV RINGERS,LACTATED 1000ML 1,000 ML IV SCH ×2 (05:20→08:53)
[2021-08-18 07:00] VITALS: BP 147/58
--- NOTE | 2021-08-18 07:41 | PDOC2 ---
CONSULT Date of Consult Date of Consult DATE: 08/18/21 TIME: 07:38 Reason for Consult Reason for Consult: abd pain Referring Physician Referring Physician: Kenroy Identification/Chief Complaint Chief Complaint Abdominal pain Source Source: Chart review, Patient History of Present Illness Reason for Visit: 76-year-old female from [facility] admitted with complaints of abdominal pain and imaging showing large amount of stool within the colon. She states she has not had a bowel movement in several days has taken multiple laxatives Past Medical History Cardiovascular: AFIB, CAD, HTN, Hyperlipidemia Pulmonary: Other CENTRAL NERVOUS SYSTEM: Other GI: GERD, Other Heme/Onc: No pertinent hx Hepatobiliary: Other Psych: Anxiety, Depression Musculoskeletal: Other Rheumatologic: Rheumatoid arthritis Renal/: No pertinent hx Endocrine: Osteoporosis Past Surgical History Past Surgical History: Appendectomy, Cholecystectomy, Tonsillectomy, Hysterectomy, Other Family History Family History: Coronary Artery Disease, Hypertension Social History No ALCOHOL: occassional Drugs: None Lives: Alone Current Problem List Problem List Problems Medical Problems: (1) Constipation Status: Acute (2) Intractable abdominal pain Status: Acute Current Medications Current Medications Current Medications Morphine Sulfate (Morphine Sulfate) 4 mg 1X ONCE IVP Last administered on 08/17/21at 14:11; Start 08/17/21 at 14:15; Stop 08/17/21 at 14:16; Status DC Ondansetron HCl (Zofran) 4 mg 1X ONCE IVP Last administered on 08/17/21at 14:10; Start 08/17/21 at 14:15; Stop 08/17/21 at 14:16; Status DC Sodium Chloride 1,000 ml @ 1,000 mls/hr 1X ONCE IV Last administered on 08/17/21at 14:11; Start 08/17/21 at 14:15; Stop 08/17/21 at 15:14; Status DC Ondansetron HCl (Zofran) 4 mg PRN Q4HRS PRN IVP NAUSEA/VOMITING; Start 08/17/21 at 14:15; Stop 08/17/21 at 15:08; Status DC Psyllium Hydrophilic Mucilloid (Metamucil Fiber Packet) 1 pkt QHS PO Last administered on 08/17/21at 21:00; Start 08/17/21 at 21:00 Acetaminophen (Tylenol) 650 mg PRN Q6HRS PRN PO MILD PAIN / TEMP > 100.3'F; Start 08/17/21 at 14:15 Bisacodyl (Dulcolax Supp) 10 mg PRN DAILY PRN [place] CONSTIPATION; Start 08/17/21 at 14:15 Docusate Sodium (Enemeez) 283 mg 1X ONCE [place] Last administered on 08/17/21at 16:22; Start 08/17/21 at 14:15; Stop 08/17/21 at 14:21; Status DC Docusate Sodium (Enemeez) 283 mg PRN DAILY PRN [place] CONSTIPATION; Start 08/17/21 at 14:15 Morphine Sulfate (Morphine Sulfate) 2 mg PRN Q1HR PRN IV PAIN; Start 08/17/21 a t 14:15; Stop 08/17/21 at 15:09; Status DC Ondansetron HCl (Zofran) 4 mg PRN Q8HRS PRN IVP NAUSEA/VOMITING; Start 08/17/21 at 15:15; Stop 08/17/21 at 15:59; Status DC Morphine Sulfate (Morphine Sulfate) 4 mg PRN Q2HR PRN IVP PAIN Last administered on 08/17/21at 15:16; Start 08/17/21 at 15:15; Stop 08/17/21 at 16:13; Status DC Pantoprazole Sodium (PROTONIX VIAL for IV PUSH) 40 mg DAILYAC IVP Last administered on 08/17/21at 16:44; Start 08/17/21 at 16:30 Ondansetron HCl (Zofran) 4 mg PRN Q4HRS PRN IVP NAUSEA/VOMITING; Start 08/17/21 at 16:00 Hydromorphone HCl (Dilaudid) 2 mg PRN Q4HRS PRN IVP PAIN; Start 08/17/21 at 16:00; Status UNV Ringer's Solution 1,000 ml @ 75 mls/hr [id number] IV Last administered on 08/17/21at 16:30; Start 08/17/21 at 16:00 Hydromorphone HCl (Dilaudid) 1 mg PRN Q4HRS PRN IVP MODERATE TO SEVERE PAIN - 1ST Last administered on 08/17/21at 16:29; Start 08/17/21 at 16:15; Stop 08/17/21 at 19:41; Status DC Hydromorphone HCl (Dilaudid) 2 mg PRN Q4HRS PRN IVP MODERATE TO SEVERE PAIN - 2ND; Start 08/17/21 at 16:15; Stop 08/17/21 at 19:41; Status DC Ciprofloxacin/ Dextrose 100 ml @ 100 mls/hr 1X ONCE IV Last administered on 08/17/21at 17:00; Start 08/17/21 at 17:00; Stop 08/17/21 at 17:59; Status DC Ciprofloxacin/ Dextrose 100 ml @ 100 mls/hr Q12HR IV ; Start 08/18/21 at 09:00 Hydromorphone HCl (Dilaudid) 1 mg PRN Q3HRS PRN IVP MODERATE TO SEVERE PAIN - 1ST Last administered on 08/17/21at 23:41; Start 08/17/21 at 19:45 Active Scripts Active Amitiza (Lubiprostone) 8 Mcg Capsule 8 Mcg PO PRN DAILY PRN 30 Days Buspirone Hcl 10 Mg Tablet 10 Mg PO BID 30 Days Losartan Potassium (Losartan Potassium) 25 Mg Tablet 100 Mg PO DAILY 30 Days Reported D3-50 (Cholecalciferol (Vitamin D3)) 50,000 Unit Capsule 10,000 Unit PO DAILY Multaq (Dronedarone Hcl) 400 Mg Tablet 1 Tab PO BID Omeprazole 40 Mg Capsule.dr 1 Cap PO DAILY Diltiazem 24HR Cd (Diltiazem Hcl) 180 Mg Cap.er.24h 360 Mg PO DAILY Breo Ellipta 100-25 Mcg Inh (Fluticasone/Vilanterol) 1 Each Aer.pow.ba 1 Puff IH DAILY Cymbalta (Duloxetine Hcl) 60 Mg Capsule.dr 1 Cap PO DAILY Alprazolam 0.25 Mg Tablet 0.25 Mg PO PRN Q6HRS PRN Hydrocodone-Apap 7.5-325 (Hydrocodone Bit/Acetaminophen) 1 Each Tablet 1 Tab PO PRN Q6HRS PRN Proair Hfa Inhaler (Albuterol Sulfate) 8.5 Gm Hfa.aer.ad 2 Puff INH PRN Q4HRS PRN Atorvastatin Calcium 20 Mg Tablet 20 Mg PO HS Trazodone Hcl 50 Mg Tablet 50 Mg PO HS Aspir 81 (Aspirin) 81 Mg Tablet.dr 81 Mg PO DAILY Allergies Allergies: Coded Allergies: iodine (Verified Allergy, Severe, Anaphylaxis, 06/19/17) iodine (Unverified Allergy, Severe, anaphylaxis, throat swelling and difficulty breathing, 06/19/17) shellfish derived (Verified Allergy, Severe, Anaphylaxis, 06/19/17) Sulfa (Sulfonamide Antibiotics) (Verified Allergy, Intermediate, Swelling, pain in neck, 06/19/17) ROS General: YES: Fatigue PSYCHOLOGICAL ROS: No: Anxiety, Behavioral Disorder, Concentration difficultie, Decreased libido, Depression, Disorientation, Hallucinations, Hostility, Irritablity, Memory difficulties, Mood Swings, Obsessive thoughts, Physical abuse, Sexual abuse, Sleep disturbances, Suicidal ideation, Other Eyes: No Blurry vision, No Decreased vision, No Double vision, No Dry eyes, No Excessive tearing, No Eye Pain, No Itchy Eyes, No Loss of vision, No Photophobia, No Scotomata, No Uses contacts, No Uses glasses, No Other HEENT: No: Heacaches, Visual Changes, Hearing change, Nasal congestion, Nasal discharge, Oral lesions, Sinus pain, Sore Throat, Epistaxis, Sneezing, Snoring, Tinnitus, Vertigo, Vocal changes, Other ALLERGY AND IMMUNOLOGY: No: Hives, Insect Bite Sensitivity, Itchy/Watery Eyes, Nasal Congestion, Post Nasal Drip, Seasonal Allergies, Other Hematological and Lymphatic: No: Bleeding Problems, Blood Clots, Blood Transfusions, Brusing, Night Sweats, Pallor, Swollen Lymph Nodes, Other ENDOCRINE: No: Breast Changes, Galactorrhea, Hair Pattern Changes, Hot Flashes, Malaise/lethargy, Mood Swings, Palpitations, Polydipsia/polyuria, Skin Changes, Temperature Intolerance, Unexpected Weight Changes, Other Respiratory: No: Cough, Hemoptysis, Orthopnea, Pleuritic Pain, Shortness of breath, SOB with excertion, Sputum Changes, Stridor, Tachypnea, Wheezing, Other Cardiovascular: No Chest Pain, No Palpitations, No Orthopnea, No Paroxysmal Noc. Dyspnea, No Edema, No Lt Headedness, No Other Gastrointestinal: Yes Nausea, Yes Vomiting, Yes Abdominal Pain, Yes Constipation Genitourinary: No Dysuria, No Frequency, No Incontinence, No Hematuria, No Retention, No Discharge, No Urgency, No Pain, No Flank Pain, No Other, No , No , No , No , No , No , No Musculoskeletal: No Gait Disturbance, No Joint Pain, No Joint Stiffness, No Joint Swelling, No Muscle Pain, No Muscular Weakness, No Pain In:, No Swelling In:, No Other Neurological: No Behavorial Changes, No Bowel/Bladder ControlChng, No Confusion, No Dizziness, No Gait Disturbance, No Headaches, No Impaired Coord/balance, No Memory Loss, No Numbness/Tingling, No Seizures, No Speech Problems, No Tremors, No Visual Changes, No Weakness, No Other Skin: No Dry Skin, No Eczema, No Hair Changes, No Lumps, No Mole Changes, No Mottling, No Nail Changes, No Pruritus, No Rash, No Skin Lesion Changes, No Other, No Acne Physical Exam General: Alert, Oriented X3, Cooperative, mild distress HEENT: Atraumatic, PERRLA, EOMI Lungs: Clear to auscultation, Normal air movement Heart: Regular rate, No murmurs Abdomen: Normal bowel sounds, Soft, Other (Mildly tender left lower quadrant no peritoneal signs) Extremities: No edema Skin: No significant lesion Neuro: Normal speech Psych/Mental Status: Mental status NL Vitals VITALS Vital Signs Date Time Temp Pulse Resp B/P (MAP) Pulse Ox O2 Delivery O2 Flow Rate FiO2 08/18/21 03:24 98.4 62 20 144/49 (80) 96 Nasal Cannula 2.0 98.4 Labs Labs Laboratory Tests Test 08/17/21 13:05 08/17/21 14:25 08/17/21 17:45 White Blood Count 19.1 x10^3/uL (4.0-11.0) Red Blood Count 4.71 x10^6/uL (3.50-5.40) Hemoglobin 13.3 g/dL (12.0-15.5) Hematocrit 41.2 % (36.0-47.0) Mean Corpuscular Volume 88 fL (79-100) Mean Corpuscular Hemoglobin 28 pg (25-35) Mean Corpuscular Hemoglobin Concent 32 g/dL (31-37) Red Cell Distribution Width 15.0 % (11.5-14.5) Platelet Count 309 x10^3/uL (140-400) Neutrophils (%) (Auto) 93 % (31-73) Lymphocytes (%) (Auto) 2 % (24-48) Monocytes (%) (Auto) 4 % (0-9) Eosinophils (%) (Auto) 0 % (0-3) Basophils (%) (Auto) 0 % (0-3) Neutrophils # (Auto) 17.8 x10^3/uL (1.8-7.7) Lymphocytes # (Auto) 0.4 x10^3/uL (1.0-4.8) Monocytes # (Auto) 0.8 x10^3/uL (0.0-1.1) Eosinophils # (Auto) 0.0 x10^3/uL (0.0-0.7) Basophils # (Auto) 0.1 x10^3/uL (0.0-0.2) Segmented Neutrophils % 88 % (35-66) Band Neutrophils % 2 % (0-9) Lymphocytes % 5 % (24-48) Atypical Lymphocytes % (Manual) 2 % (0-0) Monocytes % 3 % (0-10) Platelet Estimate Adequate (ADEQUATE) Sodium Level 142 mmol/L (136-145) Potassium Level 3.8 mmol/L (3.5-5.1) Chloride Level 102 mmol/L (98-107) Carbon Dioxide Level 30 mmol/L (21-32) Anion Gap 10 (6-14) Blood Urea Nitrogen 22 mg/dL (7-20) Creatinine 0.7 mg/dL (0.6-1.0) Estimated GFR (Cockcroft-Gault) 81.6 BUN/Creatinine Ratio 31 (6-20) Glucose Level 176 mg/dL (70-99) Lactic Acid Level 2.9 mmol/L (0.4-2.0) 1.0 mmol/L (0.4-2.0) Calcium Level 8.7 mg/dL (8.5-10.1) Magnesium Level 4.1 mg/dL (1.8-2.4) Total Bilirubin 0.6 mg/dL (0.2-1.0) Aspartate Amino Transf (AST/SGOT) 16 U/L (15-37) Alanine Aminotransferase (ALT/SGPT) 18 U/L (14-59) Alkaline Phosphatase 113 U/L (46-116) Total Protein 7.4 g/dL (6.4-8.2) Albumin 3.4 g/dL (3.4-5.0) Albumin/Globulin Ratio 0.9 (1.0-1.7) Lipase 21 U/L (73-393) Urine Collection Type Unknown Urine Color (Auto) Yellow Urine Turbidity Hazy Urine pH (Auto) 7.0 (<5.0-8.0) Urine Specific [place] 1.017 (1.000-1.030) Urine Protein (Auto) Negative mg/dL (Negative) Urine Glucose (Auto)(UA) Negative mg/dL (Negative) Urine Ketones (Auto) Negative mg/dL (Negative) Urine Blood (Auto) Negative (Negative) Urine Nitrite Negative (Negative) Urine Bilirubin (Auto) Negative (Negative) Urine Urobilinogen (Auto) 4 mg/dL (Normal) Urine Leukocyte Esterase (Auto) Moderate (Negative) Urine RBC 1-2 /HPF (0-2) Urine WBC 20-40 /HPF (0-4) Urine Squamous Epithelial Cells Mod /LPF Urine Bacteria Many /HPF (0-FEW) Urine Hyaline Casts Few /HPF Urine Mucus Mod /LPF Urine Yeast Present /HPF Laboratory Tests Test 08/17/21 13:05 08/17/21 14:25 08/17/21 17:45 White Blood Count 19.1 x10^3/uL (4.0-11.0) Red Blood Count 4.71 x10^6/uL (3.50-5.40) Hemoglobin 13.3 g/dL (12.0-15.5) Hematocrit 41.2 % (36.0-47.0) Mean Corpuscular Volume 88 fL (79-100) Mean Corpuscular Hemoglobin 28 pg (25-35) Mean Corpuscular Hemoglobin Concent 32 g/dL (31-37) Red Cell Distribution Width 15.0 % (11.5-14.5) Platelet Count 309 x10^3/uL (140-400) Neutrophils (%) (Auto) 93 % (31-73) Lymphocytes (%) (Auto) 2 % (24-48) Monocytes (%) (Auto) 4 % (0-9) Eosinophils (%) (Auto) 0 % (0-3) Basophils (%) (Auto) 0 % (0-3) Neutrophils # (Auto) 17.8 x10^3/uL (1.8-7.7) Lymphocytes # (Auto) 0.4 x10^3/uL (1.0-4.8) Monocytes # (Auto) 0.8 x10^3/uL (0.0-1.1) Eosinophils # (Auto) 0.0 x10^3/uL (0.0-0.7) Basophils # (Auto) 0.1 x10^3/uL (0.0-0.2) Segmented Neutrophils % 88 % (35-66) Band Neutrophils % 2 % (0-9) Lymphocytes % 5 % (24-48) Atypical Lymphocytes % (Manual) 2 % (0-0) Monocytes % 3 % (0-10) Platelet Estimate Adequate (ADEQUATE) Sodium Level 142 mmol/L (136-145) Potassium Level 3.8 mmol/L (3.5-5.1) Chloride Level 102 mmol/L (98-107) Carbon Dioxide Level 30 mmol/L (21-32) Anion Gap 10 (6-14) Blood Urea Nitrogen 22 mg/dL (7-20) Creatinine 0.7 mg/dL (0.6-1.0) Estimated GFR (Cockcroft-Gault) 81.6 BUN/Creatinine Ratio 31 (6-20) Glucose Level 176 mg/dL (70-99) Lactic Acid Level 2.9 mmol/L (0.4-2.0) 1.0 mmol/L (0.4-2.0) Calcium Level 8.7 mg/dL (8.5-10.1) Magnesium Level 4.1 mg/dL (1.8-2.4) Total Bilirubin 0.6 mg/dL (0.2-1.0) Aspartate Amino Transf (AST/SGOT) 16 U/L (15-37) Alanine Aminotransferase (ALT/SGPT) 18 U/L (14-59) Alkaline Phosphatase 113 U/L (46-116) Total Protein 7.4 g/dL (6.4-8.2) Albumin 3.4 g/dL (3.4-5.0) Albumin/Globulin Ratio 0.9 (1.0-1.7) Lipase 21 U/L (73-393) Urine Collection Type Unknown Urine Color (Auto) Yellow Urine Turbidity Hazy Urine pH (Auto) 7.0 (<5.0-8.0) Urine Specific [place] 1.017 (1.000-1.030) Urine Protein (Auto) Negative mg/dL (Negative) Urine Glucose (Auto)(UA) Negative mg/dL (Negative) Urine Ketones (Auto) Negative mg/dL (Negative) Urine Blood (Auto) Negative (Negative) Urine Nitrite Negative (Negative) Urine Bilirubin (Auto) Negative (Negative) Urine Urobilinogen (Auto) 4 mg/dL (Normal) Urine Leukocyte Esterase (Auto) Moderate (Negative) Urine RBC 1-2 /HPF (0-2) Urine WBC 20-40 /HPF (0-4) Urine Squamous Epithelial Cells Mod /LPF Urine Bacteria Many /HPF (0-FEW) Urine Hyaline Casts Few /HPF Urine Mucus Mod /LPF Urine Yeast Present /HPF Assessment/Plan Assessment/Plan Abdominal pain with imaging showing constipation Urinary tract infection by UA Patient on IV antibiotics and receiving enemas Patient states she is feeling better this morning as far as her abdominal pain, lactic acid has improved will monitor ELAYNE SETHI MD August 18, 2021 07:41
[2021-08-18] MEDS: PANTOPRAZOLE IV PUSH 40 MG VIAL. IVP SCH (08:50)
[2021-08-18] MEDS: CIPROFLOXACIN 200MG PREMIX 100 ML IV SCH ×2 (08:51→21:03)
[2021-08-18 09:21] LABS: HEMATOCRIT 35.2 % (36.0-47.0); HEMOGLOBIN 11.2 g/dL (12.0-15.5); RED BLOOD COUNT 3.98 x10^6/uL (3.50-5.40); RED CELL DISTRIBUTION WIDTH 14.6 % (11.5-14.5); WHITE BLOOD COUNT 14.8 x10^3/uL (4.0-11.0)
[2021-08-18 09:39] LABS: ALBUMIN 2.7 g/dL (3.4-5.0); ALBUMIN/GLOBULIN RATIO 0.8 (1.0-1.7); CALCIUM 8.2 mg/dL (8.5-10.1); CREATININE 0.7 mg/dL (0.6-1.0); GFR 81.6; TOTAL BILIRUBIN 0.4 mg/dL (0.2-1.0); TOTAL PROTEIN 6.2 g/dL (6.4-8.2)
--- NOTE | 2021-08-18 09:47 | PDOC ---
[facility] [facility] PROGRESS NOTE Date of Service DOS: DATE: 08/18/21 TIME: 09:46 Chief Complaint Chief Complaint Bowel pain Constipation Leukocytosis UTI Lactic acidosis Hypertension History of A. fib Hyperlipidemia Obesity GERD CAD Anxiety Depression OA History of Present Illness History of Present Illness 08/19/2019 Patient seen exam She is resting with no apparent distress Discussed with RN Discussed with case management Chart reviewed Vitals/I&O Vitals/I&O: Vital Signs Date Time Temp Pulse Resp B/P (MAP) Pulse Ox O2 Delivery O2 Flow Rate FiO2 08/18/21 07:00 98.6 75 16 147/58 (87) 92 Room Air 98.6 08/18/21 03:24 2.0 I & O 08/17/21 08/17/21 08/18/21 15:00 23:00 07:00 Intake Total 0 ml Output Total 180 ml Balance -180 ml Physical Exam General: No acute distress Heart: Regular rate, No murmurs Abdomen: Normal bowel sounds, Soft, Other (Mildly tender left lower quadrant no peritoneal signs) Extremities: No edema Skin: No significant lesion Labs Labs: Laboratory Tests Test 08/17/21 13:05 08/17/21 14:25 08/17/21 17:45 08/18/21 08:35 White Blood Count 19.1 x10^3/uL (4.0-11.0) 14.8 x10^3/uL (4.0-11.0) Red Blood Count 4.71 x10^6/uL (3.50-5.40) 3.98 x10^6/uL (3.50-5.40) Hemoglobin 13.3 g/dL (12.0-15.5) 11.2 g/dL (12.0-15.5) Hematocrit 41.2 % (36.0-47.0) 35.2 % (36.0-47.0) Mean Corpuscular Volume 88 fL (79-100) 88 fL (79-100) Mean Corpuscular Hemoglobin 28 pg (25-35) 28 pg (25-35) Mean Corpuscular Hemoglobin Concent 32 g/dL (31-37) 32 g/dL (31-37) Red Cell Distribution Width 15.0 % (11.5-14.5) 14.6 % (11.5-14.5) Platelet Count 309 x10^3/uL (140-400) 226 x10^3/uL (140-400) Neutrophils (%) (Auto) 93 % (31-73) Lymphocytes (%) (Auto) 2 % (24-48) Monocytes (%) (Auto) 4 % (0-9) Eosinophils (%) (Auto) 0 % (0-3) Basophils (%) (Auto) 0 % (0-3) Neutrophils # (Auto) 17.8 x10^3/uL (1.8-7.7) Lymphocytes # (Auto) 0.4 x10^3/uL (1.0-4.8) Monocytes # (Auto) 0.8 x10^3/uL (0.0-1.1) Eosinophils # (Auto) 0.0 x10^3/uL (0.0-0.7) Basophils # (Auto) 0.1 x10^3/uL (0.0-0.2) Segmented Neutrophils % 88 % (35-66) Band Neutrophils % 2 % (0-9) Lymphocytes % 5 % (24-48) Atypical Lymphocytes % (Manual) 2 % (0-0) Monocytes % 3 % (0-10) Platelet Estimate Adequate (ADEQUATE) Sodium Level 142 mmol/L (136-145) Potassium Level 3.8 mmol/L (3.5-5.1) Chloride Level 102 mmol/L (98-107) Carbon Dioxide Level 30 mmol/L (21-32) Anion Gap 10 (6-14) Blood Urea Nitrogen 22 mg/dL (7-20) Creatinine 0.7 mg/dL (0.6-1.0) Estimated GFR (Cockcroft-Gault) 81.6 BUN/Creatinine Ratio 31 (6-20) Glucose Level 176 mg/dL (70-99) Lactic Acid Level 2.9 mmol/L (0.4-2.0) 1.0 mmol/L (0.4-2.0) Calcium Level 8.7 mg/dL (8.5-10.1) Magnesium Level 4.1 mg/dL (1.8-2.4) Total Bilirubin 0.6 mg/dL (0.2-1.0) Aspartate Amino Transf (AST/SGOT) 16 U/L (15-37) Alanine Aminotransferase (ALT/SGPT) 18 U/L (14-59) Alkaline Phosphatase 113 U/L (46-116) Total Protein 7.4 g/dL (6.4-8.2) Albumin 3.4 g/dL (3.4-5.0) Albumin/Globulin Ratio 0.9 (1.0-1.7) Lipase 21 U/L (73-393) Urine Collection Type Unknown Urine Color (Auto) Yellow Urine Turbidity Hazy Urine pH (Auto) 7.0 (<5.0-8.0) Urine Specific [place] 1.017 (1.000-1.030) Urine Protein (Auto) Negative mg/dL (Negative) Urine Glucose (Auto)(UA) Negative mg/dL (Negative) Urine Ketones (Auto) Negative mg/dL (Negative) Urine Blood (Auto) Negative (Negative) Urine Nitrite Negative (Negative) Urine Bilirubin (Auto) Negative (Negative) Urine Urobilinogen (Auto) 4 mg/dL (Normal) Urine Leukocyte Esterase (Auto) Moderate (Negative) Urine RBC 1-2 /HPF (0-2) Urine WBC 20-40 /HPF (0-4) Urine Squamous Epithelial Cells Mod /LPF Urine Bacteria Many /HPF (0-FEW) Urine Hyaline Casts Few /HPF Urine Mucus Mod /LPF Urine Yeast Present /HPF Assessment and Plan Assessmemt and Plan Problems Medical Problems: (1) Constipation Status: Acute (2) Intractable abdominal pain Status: Acute Abdominal pain - from constipation on digital exam unable to reach any stool looks like it stops sigmoid maybe there is an obstruction but its not clear we will try an enema. Leukocytosis - likely sepsis from colitis vs UTI. will cover with cipro Abnormal UA -we will treat as UTI follow-up on cultures. Lactic acidosis -likely due to above will hydrate follow-up on repeat. HTN - controlled Remote h/o AFIB () - PAFIB: maintaining SR/SB lowest 50s HLD - cont statin Morbid obesity -also on weight loss diet and exercise CAD - mild in 2010, no past intervention GERD with hiatal hernia - H2 yannick therapy Anxiety, Depression - continue meds OA -bilateral knees, she knows she needs to lose weight prior to having any surgical interventions. Home meds DVT prophylaxis Full code Await GI and general surgery input Trend labs FEN - NPO PPX - heparin FULL CODE Dispo - inpatient Comment Review of Relevant I have reviewed the following items joann (where applicable) has been applied. Medications: Current Medications Medications (Trade) Dose Ordered Sig/Dev Route PRN Reason Start Time Stop Time Status Last Admin Dose Admin Morphine Sulfate (Morphine Sulfate) 4 mg 1X ONCE IVP 08/17/21 14:15 08/17/21 14:16 DC 08/17/21 14:11 Ondansetron HCl (Zofran) 4 mg 1X ONCE IVP 08/17/21 14:15 08/17/21 14:16 DC 08/17/21 14:10 Sodium Chloride 1,000 ml @ 1,000 mls/hr 1X ONCE IV 08/17/21 14:15 08/17/21 15:14 DC 08/17/21 14:11 Psyllium Hydrophilic Mucilloid (Metamucil Fiber Packet) 1 pkt QHS PO 08/17/21 21:00 08/17/21 21:00 Docusate Sodium (Enemeez) 283 mg 1X ONCE HI 08/17/21 14:15 08/17/21 14:21 DC 08/17/21 16:22 Morphine Sulfate (Morphine Sulfate) 4 mg PRN Q2HR PRN IVP PAIN 08/17/21 15:15 08/17/21 16:13 DC 08/17/21 15:16 Pantoprazole Sodium (PROTONIX VIAL for IV PUSH) 40 mg DAILYAC IVP 08/17/21 16:30 08/18/21 08:50 Ringer's Solution 1,000 ml @ 75 mls/hr [id number] IV 08/17/21 16:00 08/18/21 08:53 Hydromorphone HCl (Dilaudid) 1 mg PRN Q4HRS PRN IVP MODERATE TO SEVERE PAIN - 1ST 08/17/21 16:15 08/17/21 19:41 DC 08/17/21 16:29 Ciprofloxacin/ Dextrose 100 ml @ 100 mls/hr 1X ONCE IV 08/17/21 17:00 08/17/21 17:59 DC 08/17/21 17:00 Ciprofloxacin/ Dextrose 100 ml @ 100 mls/hr Q12HR IV 08/18/21 09:00 08/18/21 08:51 Hydromorphone HCl (Dilaudid) 1 mg PRN Q3HRS PRN IVP MODERATE TO SEVERE PAIN - 1ST 08/17/21 19:45 08/17/21 23:41 Justifications for Admission Abdominal Pain Indications Is patient in severe pain?: Yes Justification for admission: Patient has severe pain that requires (parenteral analgesic-please state analgesics and route) at least every 4 hours necessitating inpatient level of care. Other Justification DANY VASQUEZ III DO August 18, 2021 09:47
[2021-08-18 11:00] VITALS: BP 153/58
--- NOTE | 2021-08-18 12:17 | PDOC ---
Date of Service: DATE: 08/18/21 TIME: 12:14 Subjective: Subjective: Feels better, pooped all night. Objective: Objective: Nurse called this morning reporting many stools, asking for diet order - okay to ADAT. Vital Signs: Vital Signs Date Time Temp Pulse Resp B/P (MAP) Pulse Ox O2 Delivery O2 Flow Rate FiO2 08/18/21 11:00 98.4 74 18 153/58 (89) 90 Room Air 98.4 08/18/21 03:24 2.0 Labs: Laboratory Tests Test 08/17/21 13:05 08/17/21 14:25 08/17/21 17:45 08/18/21 08:35 White Blood Count 19.1 x10^3/uL 14.8 x10^3/uL Red Blood Count 4.71 x10^6/uL 3.98 x10^6/uL Hemoglobin 13.3 g/dL 11.2 g/dL Hematocrit 41.2 % 35.2 % Mean Corpuscular Volume 88 fL 88 fL Mean Corpuscular Hemoglobin 28 pg 28 pg Mean Corpuscular Hemoglobin Concent 32 g/dL 32 g/dL Red Cell Distribution Width 15.0 % 14.6 % Platelet Count 309 x10^3/uL 226 x10^3/uL Neutrophils (%) (Auto) 93 % Lymphocytes (%) (Auto) 2 % Monocytes (%) (Auto) 4 % Eosinophils (%) (Auto) 0 % Basophils (%) (Auto) 0 % Neutrophils # (Auto) 17.8 x10^3/uL Lymphocytes # (Auto) 0.4 x10^3/uL Monocytes # (Auto) 0.8 x10^3/uL Eosinophils # (Auto) 0.0 x10^3/uL Basophils # (Auto) 0.1 x10^3/uL Segmented Neutrophils % 88 % Band Neutrophils % 2 % Lymphocytes % 5 % Atypical Lymphocytes % (Manual) 2 % Monocytes % 3 % Platelet Estimate Adequate Sodium Level 142 mmol/L 143 mmol/L Potassium Level 3.8 mmol/L 4.0 mmol/L Chloride Level 102 mmol/L 106 mmol/L Carbon Dioxide Level 30 mmol/L 31 mmol/L Anion Gap 10 6 Blood Urea Nitrogen 22 mg/dL 19 mg/dL Creatinine 0.7 mg/dL 0.7 mg/dL Estimated GFR (Cockcroft-Gault) 81.6 81.6 BUN/Creatinine Ratio 31 27 Glucose Level 176 mg/dL 118 mg/dL Lactic Acid Level 2.9 mmol/L 1.0 mmol/L Calcium Level 8.7 mg/dL 8.2 mg/dL Magnesium Level 4.1 mg/dL Total Bilirubin 0.6 mg/dL 0.4 mg/dL Aspartate Amino Transf (AST/SGOT) 16 U/L 13 U/L Alanine Aminotransferase (ALT/SGPT) 18 U/L 17 U/L Alkaline Phosphatase 113 U/L 86 U/L Total Protein 7.4 g/dL 6.2 g/dL Albumin 3.4 g/dL 2.7 g/dL Albumin/Globulin Ratio 0.9 0.8 Lipase 21 U/L Urine Collection Type Unknown Urine Color (Auto) Yellow Urine Turbidity Hazy Urine pH (Auto) 7.0 Urine Specific [place] 1.017 Urine Protein (Auto) Negative mg/dL Urine Glucose (Auto)(UA) Negative mg/dL Urine Ketones (Auto) Negative mg/dL Urine Blood (Auto) Negative Urine Nitrite Negative Urine Bilirubin (Auto) Negative Urine Urobilinogen (Auto) 4 mg/dL Urine Leukocyte Esterase (Auto) Moderate Urine RBC 1-2 /HPF Urine WBC 20-40 /HPF Urine Squamous Epithelial Cells Mod /LPF Urine Bacteria Many /HPF Urine Hyaline Casts Few /HPF Urine Mucus Mod /LPF Urine Yeast Present /HPF PE: GEN: NAD - was sleeping, tray 100% consumed LUNGS: CTAB HEART: RRR ABD: obese, softer, non-tender NEURO/PSYCH: A & O 3 A/P: Chronic constipation, probable diverticular stricture Chronic pain on hydrocodone Lactic acidosis - resolved -- D/w Dr. Rice who reviewed pictures from recent colonoscopy - diverticular stricture (but could pass w/ scope). Continue Miralax chronically (this worked well before), adjust as needed. DC per primary. Justicifation of Admission Dx: Justifications for Admission: Justification of Admission Dx: Yes DEONDRE TORRES August 18, 2021 12:17 YORDAN RICE MD August 18, 2021 12:18
[2021-08-18 15:00] VITALS: BP 150/60
[2021-08-18 19:00] VITALS: BP 197/76
[2021-08-18] MEDS: PSYLLIUM HUSK (SUGAR FREE) 1 PKT PACKET PO SCH (21:03)
[2021-08-18] MEDS: LACTOBACILLUS RHAMNOSUS GG 1 CAPSULE. PO SCH (21:03)
[2021-08-18] MEDS ORDERED: ALPRAZolam 0.25 MG TABLET PO PRN (22:00)
[2021-08-18] MEDS ORDERED: ATORVASTATIN CALCIUM 20 MG TABLET PO SCH (22:30)
[2021-08-18] MEDS ORDERED: traZODone 50 MG TABLET. PO SCH (22:30)
[2021-08-18] MEDS: ASPIRIN ENTERIC COATED 81 MG TABLET.DR. PO SCH (22:30)
[2021-08-18] MEDS: CHOLECALCIFEROL (VITAMIN D3) 5,000 UNIT CAPSULE PO SCH (22:30)
[2021-08-18] MEDS ORDERED: LUBIPROSTONE 24 MCG CAPSULE PO PRN (22:30)
[2021-08-18] MEDS: DULoxetine HCL 30 MG CAPSULE.DR PO SCH (22:35)
[2021-08-18] MEDS: DRONEDARONE HCL 400 MG TABLET PO SCH (22:35)
[2021-08-18] MEDS: busPIRone 10 MG TABLET. PO SCH (22:35)
[2021-08-18] MEDS: LOSARTAN POTASSIUM 50 MG TABLET. PO SCH (22:36)
[2021-08-18 23:00] VITALS: BP 159/70
[2021-08-19] MEDS: IV RINGERS,LACTATED 1000ML 1,000 ML IV SCH (01:33)
[2021-08-19 03:00] VITALS: BP 143/60
[2021-08-19] MEDS ORDERED: PANTOPRAZOLE 40 MG TABLET.DR. PO SCH (07:30)
[2021-08-19] MEDS: ALBUTEROL SULFATE 2.5 MG/3 ML NEBU. NEB SCH ×4 (07:43→21:00)
[2021-08-19] MEDS: BUDESONIDE 0.5 MG/2 ML NEBU. NEB SCH ×2 (07:43→21:00)
[2021-08-19] MEDS: busPIRone 10 MG TABLET. PO SCH (08:24)
[2021-08-19] MEDS: LACTOBACILLUS RHAMNOSUS GG 1 CAPSULE. PO SCH (08:24)
[2021-08-19] MEDS: LOSARTAN POTASSIUM 50 MG TABLET. PO SCH (08:25)
[2021-08-19] MEDS: ASPIRIN ENTERIC COATED 81 MG TABLET.DR. PO SCH (08:25)
[2021-08-19] MEDS: DULoxetine HCL 30 MG CAPSULE.DR PO SCH (08:25)
[2021-08-19] MEDS: CHOLECALCIFEROL (VITAMIN D3) 5,000 UNIT CAPSULE PO SCH (08:25)
[2021-08-19] MEDS: DRONEDARONE HCL 400 MG TABLET PO SCH (08:26)
[2021-08-19] MEDS: HYDROcodone/APAP 7.5/325MG 1 TAB TABLET PO PRN ×2 (08:26→11:18)
[2021-08-19 11:00] VITALS: BP 148/69
[2021-08-19] MEDS: CIPROFLOXACIN 200MG PREMIX 100 ML IV SCH (11:07)
[2021-08-19] MEDS ORDERED: CEFD300C PO (11:44)
--- NOTE | 2021-08-19 11:45 | DISCH ---
DISCHARGE INSTRUCTIONS Condition on Discharge Condition on Discharge: Stable Activity After Discharge Activity Instructions for Disc: No restrictions, Activity as tolerated Lifting Instructions after Dis: No heavy lifting, No pulling or pushing, Do not lift >10 pounds Exercise Instruction after Dis: Progress as tolerated Driving Instructions after Dis: Do not drive today Weight Bearing Status after Di: As tolerated Diet after Discharge Diet after Discharge: Cardiac Diet Texture: Regular Liquid Texture: Thin Liquid Swallowing Supervision: None needed Wound Incision Care Wound/Incision Care: No wound care needed Checks after Discharge Checks after discharge: Check blood press - daily DC Comment: Follow-up closely with your urine culture sensitivity results Follow-Up Follow up with: PCP within 2 weeks of discharge Treatment/Equipment after DC Adaptive Equipment Issued: None ERICKA GONZALEZ MD August 19, 2021 11:45
== END 2021-08-19 13:15 | disposition home or self-care (01) | DRG 690 ==
LOC: ER 12:35 → 4 NORTH 13:55
PROVIDERS: ADMIT Internal Medicine; ATTEND Internal Medicine
DX: N39.0 Urinary tract infection, site not specified (principal); K59.39 Other megacolon; Z68.42 Body mass index [BMI] 45.0-49.9, adult; E87.2 Acidosis; K59.00 Constipation, unspecified; G89.29 Other chronic pain; D12.3 Benign neoplasm of transverse colon; E66.01 Morbid (severe) obesity due to excess calories; E78.00 Pure hypercholesterolemia, unspecified; E78.5 Hyperlipidemia, unspecified; F32.A Depression, unspecified; F41.9 Anxiety disorder, unspecified; I10 Essential (primary) hypertension; I25.10 Atherosclerotic heart disease of native coronary artery without angina pectoris; I48.0 Paroxysmal atrial fibrillation; J45.909 Unspecified asthma, uncomplicated; K21.9 Gastro-esophageal reflux disease without esophagitis; K29.50 Unspecified chronic gastritis without bleeding; K44.9 Diaphragmatic hernia without obstruction or gangrene; K57.30 Diverticulosis of large intestine without perforation or abscess without bleeding; K59.09 Other constipation; K64.8 Other hemorrhoids; M06.9 Rheumatoid arthritis, unspecified; M81.0 Age-related osteoporosis without current pathological fracture; Z82.49 Family history of ischemic heart disease and other diseases of the circulatory system; Z87.891 Personal history of nicotine dependence; Z90.49 Acquired absence of other specified parts of digestive tract; Z90.710 Acquired absence of both cervix and uterus; M19.90 Unspecified osteoarthritis, unspecified site; Z88.2 Allergy status to sulfonamides; Z88.8 Allergy status to other drugs, medicaments and biological substances; Z91.013 Allergy to seafood
CPT/HCPCS: 36415; 74022; 80053; 81001; 83605; 83690; 83735; 85007; 85025; 85027; 87077; 87086; 87186; 94640; 94760; 96361; 96374; 96375; C9113; J0744; J1170; J2270; J2405; J7030; J7120; 99285-25; G0378; J7613; J7626